=== PATIENT | female | born 1940 | race Caucasian/White ===

== ENCOUNTER 2021-09-04 08:56 | Day surgery (SDC) | payer OTHER, SELFPAY ==
[2021-09-04] MEDS: TETRACAINE 0.5% OPHTH 1 DROP EYE-RIGHT ×2 (09:10→09:15)
[2021-09-04] MEDS: KETOROLAC OPHTH 0.5% 1 DROP EYE-RIGHT ×2 (09:10→09:15)
[2021-09-04 10:19] VITALS: BP 128/65; PULSE 65; RESP 16; TEMP 36.3; O2SAT 95
[2021-09-04] MEDS: TETRACAINE 0.5% OPHTH 2 DROP EYE-RIGHT (10:25)
[2021-09-04] MEDS: BALANCED SALT IRRIG SOLN 15 ML EYE-RIGHT (10:25)
--- NOTE | 2021-09-04 10:29 | SUR.PREOP ---
0915: The eye drops brought by the patient (Ketorolac and Prednisolone) are examined and I have determined they are labeled by the patient's pharmacy for this patient as prescribed by the surgeon. The bottles are intact, recently obtained and appear to be correct.
[2021-09-04] MEDS: SODIUM CHLORIDE 0.9 % (FLUSH) 10 ML SYRINGE IVF (10:31)
[2021-09-04 10:52] VITALS: BP 129/75; PULSE 69; RESP 16; TEMP 36.6; O2SAT 97
--- NOTE | 2021-09-04 10:57 | W.ANESCHARGE ---
Anesthesia Charges Start Date/Time Anesthesia Start Date: 09/04/21 Anesthesia Start Time: 10:19 Stop Date/Time Anesthesia Stop Date: 09/04/21 Anesthesia Stop Time: 10:53 Summary Emergency: No Extremes of Age: Over 68-CPT 03779
--- NOTE | 2021-09-04 11:11 | W.ANESCHARGE ---
Anesthesia Charges Start Date/Time Anesthesia Start Date: 09/04/21 Anesthesia Start Time: 10:19 Stop Date/Time Anesthesia Stop Date: 09/04/21 Anesthesia Stop Time: 10:53 Summary Emergency: No Extremes of Age: Over 68-CPT 10675
--- NOTE | 2021-09-04 14:10 | P.PCN_ITS ---
Procedure Note Will [facility] bill your pro fee for this procedure?: Yes Procedure: SURGEON: Henny Pearce MD PREOPERATIVE DIAGNOSIS: Nuclear sclerotic cataract, right eye. POSTOPERATIVE DIAGNOSIS: Nuclear sclerotic cataract, right eye. NAME OF OPERATION: Phacoemulsification of cataract with posterior chamber intraocular lens implantation in the right eye. ANESTHESIA: Topical. ESTIMATED BLOOD LOSS: Less than 2 cc. COMPLICATIONS: None. PATHOLOGY SPECIMEN: None. INDICATIONS: See consult note for details. The risks, benefits and alternatives of the procedure were explained to the patient, who elected to proceed and signed informed consent to do so. PROCEDURE: The patient was brought to the pre-holding area where the right eye was identified as the operative eye. I placed my initials above this eye. The patient received eye drops consisting of 0.5% tetracaine, 1% tropicamide, 10% phenylephrine, and ketorolac. The patient was then brought to the operating room where the right eye was again identified as the operative eye. The eye was prepped with Betadine and draped in the usual sterile ophthalmic fashion. A #15 super-sharp blade was used to create a paracentesis site. 1% non-preserved intracameral lidocaine was injected into the anterior chamber. Viscoat was injec janette into the anterior chamber. A 2.4 mm keratome was used to create a three- plane self-sealing incision 1 mm anterior to the temporal limbus. A cystotome was used to create an anterior capsular leaflet. The Utrata forceps were used to extend this to form a continuous curvilinear capsulorrhexis. Hydrodissection was performed. The cataract was removed with phacoemulsification using the gdhtad-tyf-sychoji technique. The irrigation and aspiration tip was used to remove the remaining cortex. Healon was injected into the capsular bag. An ROSALIA ZCB00 intraocular lens of 14.5 diopters was injected into the capsular bag. The irrigation and aspiration tip was used to remove the remaining viscoelastic. Balanced salt solution on a cannula was used to hydrate the wound, and the wound was found to be watertight. The pupil was noted to be round. DISPOSITION: The patient was taken to the recovery room and discharged to home in stable condition. The patient was instructed to call me or go to the emerg ency department with any sudden change, including dramatic loss of vision, severe pain in the eye or eyebrow region, nausea, or vomiting. The patient will follow up in the clinic tomorrow morning.
--- NOTE | 2021-09-17 15:58 | SUR.PREOP ---
This nurse closing chart due to block stacker nurse is out for extended time. End time based on patients entry time into OR
== END 2021-09-04 13:19 | disposition home or self-care (01) ==
PROVIDERS: PCP Family Medicine; Visit Provider Ophthalmology
PROC: (CPT 66984; principal; 2021-09-04 09:00)
DX: H25.11 Age-related nuclear cataract, right eye (principal)
CPT/HCPCS: 66984; 142; 99100; A9270; J2250; V2632

== ENCOUNTER 2022-06-09 09:21 | Inpatient (IN) | payer OTHER, SELFPAY ==
[2022-06-09] VITALS (18 sets, daily range): BP systolic 92–131; BP diastolic 54–76; PULSE 83–105; RESP 12–20; TEMP 36.6–37.7; O2SAT 82–97; BMI 26.6
--- NOTE | 2022-06-09 09:52 | ED.NURSE ---
OTORHINOLARYNGOLOGIST swab done
--- NOTE | 2022-06-09 09:57 | CRLHL7_ITS ---
For Patients: As a result of the Century Cures Act, medical imaging exams and procedure reports are released immediately into your electronic medical record. You may view this report before your referring provider. If you have questions, please contact your health care provider. INDICATION: crackles in lungs TECHNIQUE: Chest 1 view COMPARISON: 08/18/2016 FINDINGS: The cardiac silhouette is enlarged. Tortuosity of the aorta noted. Vascular calcifications are present. Degenerative changes both shoulders. Lower lung volumes. Bibasilar parenchymal densities are now present. Mild prominence of the interstitial markings throughout. IMPRESSION: Lower lung volumes with bibasilar densities, atelectasis versus infiltrate/aspiration pneumonitis. Mild prominence of the interstitium elsewhere suggesting either mild edema or pulmonary vascular congestion. Dictated by Temo Vigil MD @ 06/09/2022 11:43:15 AM (Electronically Signed)
--- NOTE | 2022-06-09 10:06 | ED_ITS ---
HPI - Nausea/Vomiting/Diarrhea General Date Seen: 06/09/22 Chief complaint: Diarrhea Stated complaint: Flu symptoms Time Seen by Provider: 06/09/22 09:22 Source: patient, family and EMS Mode of arrival: EMS Limitations: altered mental status History of Present Illness HPI Narrative: Patient is 82-year-old female presents here from [place], by EMS, for approximately a 5 hour history of a diarrhea x4 episodes, and vomiting x4 episodes, she also has severe weakness, is not able to stand by herself, normally she is ambulatory able to walk around, she lives with her in a private residence in [place], she has a diagnosis of dementia, no other services are there. Has been is just getting over some similar symptoms of vomiting and diarrhea, no history of fevers, chills, she has a slight cough, they also noted this morning. She is brought in by ambulance, they did give her approximately 200 mL of fluid, after start an IV, gave her IV 4 mg of Zofran. Patient history is from her , she is really unable to give me any meaningful history. Associated nausea: Yes Related Data Home Medications Medication Instructions Recorded Confirmed acetaminophen 500 mg tablet 500 mg PO DAILY PRN 09/03/21 09/04/21 (Acetaminophen Extra Strength) aspirin 81 mg capsule 81 mg PO DAILY 09/03/21 06/09/22 cyanocobalamin (vitamin B-12) 1,000 mcg PO DAILY 09/03/21 09/04/21 1,000 mcg capsule furosemide 20 mg tablet 20 mg PO DAILY 09/03/21 06/09/22 metoprolol succinate 100 mg 100 mg PO DAILY 09/03/21 06/09/22 tablet,extended release 24 hr pravastatin 20 mg tablet 20 mg PO DAILY 09/03/21 06/09/22 Allergies Allergy/AdvReac Type Severity Reaction Status Date / Time No Known Drug Allergies Allergy Verified 09/04/21 09:56 Review of Systems Status of ROS: Reports: 10 or more systems reviewed and unremarkable except as noted in History and below Const: Reports: fatigue and malaise Resp: Reports: cough GI: Reports: nausea, vomiting and diarrhea Endo: Reports: fatigue PFSH PFSH Medical History Aortic stenosis, mild ?I35.0 - Nonrheumatic aortic (valve) stenosis (ICD-10) Esophageal reflux ?K21.9 - Gastro-esophageal reflux disease without esophagitis (ICD-10) Hyperlipidemia, unspecified ?E78.5 - Hyperlipidemia, unspecified (ICD-10) Hypertension ?I10 - Essential (primary) hypertension (ICD-10) Malignant neoplasm of corpus uteri, unspecified ?C54.9 - Malignant neoplasm of corpus uteri, unspecified (ICD-10) Severe dementia ?F03.90 - Unspecified dementia without behavioral disturbance (ICD-10) Surgical History History of esophagogastroduodenoscopy ?Z98.890 - Other specified postprocedural states (ICD-10) History of total abdominal hysterectomy ?Z90.710 - Acquired absence of both cervix and uterus (ICD-10) S/P dilation and curettage ?Z98.890 - Other specified postprocedural states (ICD-10) Social History Smoking Status: Unknown if ever smoked How often do you have a drink containing alcohol: never AUDIT-C Alcohol total score: 0 Non-prescribed substance use: denies use Exam Narrative: Exam Narrative: Patient is seen in room 6, she is on the gurney, she appears weak, will open her eyes, is unable to sit up by herself, she is at least to 1 person lift to set her up. She does move all her extremities, to my command however. Answers or mumbles answers. This is a significant deterioration from her normal condition according to her who is here. Pupils are equal round reactive to light she tracks normally her TMs are normal her oropharynx is dry, neck is supple full range of motion with no meningismus is noted. Chest reveals no signs respiratory distress, I did turn down her oxygen to 1 L and she sats at 96%. There is some crackles in the bases bilaterally, 1 to 2/6 systolic murmur across the left sternal border is noted. There is no S3-S4, no gallops. Abdomen shows some mild tenderness in the lower abdominal area, no evidence of peritoneal signs, bowel sounds are normal, scar from previous midline incision which her tells me was from a hysterectomy. Skin reveals no petechiae rashes, she has 1+ pitting edema of her lower extremities, proximal distal muscle groups all move normally, I would describe her weakness is symmetrical 4+ out of 5. Bilateral Const: Vital Signs, click to edit/add: Vital Signs - 24 hr 06/09/22 09:31 06/09/22 10:00 06/09/22 10:27 Temperature 98 F Pulse Rate 105 H Pulse Rate [Pulse Oximeter] 89 Respiratory Rate 18 Blood Pressure Blood Pressure [Ri ght Upper Arm] 127/66 119/61 Pulse Oximetry 95 82 L Oxygen Delivery Me thod Nasal Cannula 06/09/22 10:30 06/09/22 11:04 06/09/22 11:05 Temperature Pulse Rate 89 88 87 Pulse Rate [Pulse Oximeter] Respiratory Rate Blood Pressure Blood Pressure [Ri ght Upper Arm] Pulse Oximetry 97 93 96 Oxygen Delivery Me thod 06/09/22 11:30 06/09/22 11:31 06/09/22 12:00 Temperature Pulse Rate 98 96 90 Pulse Rate [Pulse Oximeter] Respiratory Rate Blood Pressure 130/76 Blood Pressure [Ri ght Upper Arm] Pulse Oximetry 97 95 93 Oxygen Delivery Me thod 06/09/22 12:01 06/09/22 12:02 Temperature Pulse Rate 83 90 Pulse Rate [Pulse Oximeter] Respiratory Rate Blood Pressure 131/59 L Blood Pressure [Ri ght Upper Arm] Pulse Oximetry 93 94 Oxygen Delivery Me thod Documenting provider has reviewed patient's vital signs: yes Course Course Hospital Course: Life-threatening differential diagnosis considered include stroke, coronary artery disease, pneumonia, and heart failure. Other differential diagnosis include but are not limited to electrolyte imbalances, anemia, medication reactions, and urinary tract infection Differential diagnosis includes but is not limited to viral gastroenteritis, drug food poisoning, pyloric stenosis, gastritis, pancreatitis, hepatitis, cholecystitis, appendicitis, bowel obstruction, hyperemesis, cyclic vomiting syndrome, bulimia nervosa, migraine headache, motion sickness and medication side effect. These include the life threatening complications of appendicitis, drug food poisoning and bowel obstruction. Differential diagnosis considered include but not limited to viral gastroenteritis, food poisoning, bowel obstruction, Clostridium difficile, Campylobacter, Shigella, rotavirus, medication side effects, dysentery, diverticulitis, Crohn's disease and colitis I discussed with the , she is DNR DNI, but she would be and he would be agreeable to IV fluids, and a workup for this. I think this would be reasonable she has no history of falls or trauma, no history of recent antibiotic use, and there is there a history of her having similar symptoms. Reevaluation(s) Reevaluation #1: Patient's lactate came back high at 2.4, we will give her 30 mL/kilogram bolus of normal saline, she is afebrile, not tachycardic, and not hypotensive, I believe a lot of the issue is deals with her vomiting and her diarrhea, there is a questionable infiltrate in her right lower lobe on x-ray, await for radiologic over-read. We will go ahead and start her on antibiotics at this point. Reevaluation #2: Patient's cath urine showed that she is nitrate positive with bacteria, I think this is likely a true positive than. Her chest x-ray did show the infiltrates as I discussed. I will start her and did start her on Rocephin, due to the dizziness to the ER, we needed to get the bed, she was too weak to go home, we will admit her to the hospital I discussed the case with Dr. Teresa. Time: 12:39 Vital Signs Vital signs: Initial Vital Signs Temperature 98 F 06/09/22 09:31 Temperature Source Temporal Artery Scan 06/09/22 09:31 Pulse Rate 89 06/09/22 09:31 Respiratory Rate 18 06/09/22 09:31 Blood Pressure 127/66 06/09/22 09:31 Blood Pressure Mean 86 06/09/22 09:31 Blood Pressure Position Supine 06/09/22 09:31 Pulse Oximetry 95 06/09/22 09:31 Oxygen Delivery Method Nasal Cannula 06/09/22 09:31 Vital Signs Temperature 98 F 06/09/22 09:31 Pulse Rate 89 06/09/22 09:31 Respiratory Rate 18 06/09/22 09:31 Blood Pressure 127/66 06/09/22 09:31 Pulse Oximetry 95 06/09/22 09:31 Oxygen Delivery Method Nasal Cannula 06/09/22 09:31 Temperature 98 F 06/09/22 09:31 Pulse Rate 90 06/09/22 12:02 Respiratory Rate 18 06/09/22 09:31 Blood Pressure 131/59 L 06/09/22 12:01 Pulse Oximetry 94 06/09/22 12:02 Oxygen Delivery Method Nasal Cannula 06/09/22 09:31 MDM - Nausea/Vomiting/Diarrhea MDM Narrative Medical decision making narrative: Life-threatening differential diagnosis considered include stroke, coronary artery disease, pneumonia, and heart failure. Other differential diagnosis include but are not limited to electrolyte imbalances, anemia, medication reactions, and urinary tract infection Differential diagnosis includes but is not limited to viral gastroenteritis, drug food poisoning, pyloric stenosis, gastritis, pancreatitis, hepatitis, cholecystitis, appendicitis, bowel obstruction, hyperemesis, cyclic vomiting syndrome, bulimia nervosa, migraine headache, motion sickness and medication side effect. These include the life threatening complications of appendicitis, drug food poisoning and bowel obstruction. Differential diagnosis considered include but not limited to viral gastroenteritis, food poisoning, bowel obstruction, Clostridium difficile, Campylobacter, Shigella, rotavirus, medication side effects, dysentery, d iverticulitis, Crohn's disease and colitis Medical Records Attestation: I reviewed the patient's medical records. Lab Data Attestation: I reviewed the patient's lab results. Labs: Lab Results 06/09/22 06/09/22 06/09/22 Range/Units 10:07 10:50 11:00 WBC 7.38 (4.50-11.00) K/uL RBC 4.83 (4.00-5.20) m/uL Hgb 14.6 (12.0-16.0) gm/dL Hct 43.8 (33.0-51.0) % MCV 91 (80-100) fL MCH 30 (26-34) pg MCHC 33 (32-36) gm/dL RDW Coeff of Russ 13.3 (11.5-15.5) % Plt Count 171 (140-440) K/uL Neut % (Auto) 93.2 H (42.0-72.0) % Lymph % (Auto) 1.8 L (20-44) % [place] % (Auto) 4.7 (0.0-11.0) % Eos % (Auto) 0.1 (0.0-7.0) % Baso % (Auto) 0.1 (0.0-3.0) % Neut # (Auto) 6.90 (1.7-7.0) K/uL Lymph # (Auto) 0.10 L (0.90-2.90) K/uL [place] # (Auto) 0.30 (0.00-0.90) K/UL Eos # (Auto) 0.01 (0.00-0.50) K/uL Baso # (Auto) 0.01 (0.00-0.30) K/uL INR 0.99 (0.91-1.10) APTT 23 (23-33) Seconds Sodium 142 (135-149) mmol/L Potassium 3.6 (3.6-5.1) mmol/L Chloride 110 (96-114) mmol/L Carbon Dioxide 26 (20-32) mmol/L BUN 17 (7-30) mg/dL Creatinine 1.0 (0.5-1.5) mg/dL Estimated Creat Clear 37.68 Estimated GFR 56 ml/min Glucose 141 H (60-115) mg/dL Lactate 2.4 H (0.5-1.9) mmol/L Calcium 8.6 (8.4-10.6) mg/dL Total Bilirubin 1.0 (0.1-1.5) mg/dL Direct Bilirubin 0.3 (0.0-0.5) mg/dL AST 24 (12-35) U/L ALT 18 (4-35) U/L Alkaline Phosphatase 84 (40-150) U/L Troponin I < 0.01 L (0.01-0.04) ng/mL NT-Pro-B Natriuret Pep 777 pg/mL Total Protein 6.5 (6.0-8.3) g/dL Albumin 3.7 (3.3-5.0) g/dL Procalcitonin 1.05 H (<0.50) ng/mL Urine Color Yellow (Yellow) Urine Appearance Cloudy A (Clear) Urine pH 6.0 (5.0-8.5) Ur Specific [place] 1.025 (1.000-1.030) Urine Protein Trace A (Negative) Urine Glucose (UA) Negative (Negative) Urine Ketones Trace A (Negative) Urine Blood Trace-intact A (Negative) Urine Nitrite Positive A (Negative) Urine Bilirubin Negative (Negative) Urine Urobilinogen 0.2 (0.2-1.0) Ur Leukocyte Esterase Negative (Negative) Urine RBC 0-2 (0-2) Urine WBC 0-2 (0-5) Ur Squamous Epith Cells Few (None-Few) Urine Bacteria Many A (None) SARS-CoV-2 (PCR) Negative SARS-CoV-2 (Negative) Influenza Type A (PCR) Negative PCR FLU A (Negative) Influenza Type B (PCR) Negative PCR FLU B (Negative) RSV (PCR) Negative PCR RSV (Negative) Imaging Data Chest x-ray: Attestation: I have reviewed the pertinent imaging results. My impression: I reviewed the chest x-ray which showed possible right lower lobe infiltrate, Radiologist's impression: [facility] Patient ID:?[id number] Site Patient ID:?[id number]. Site :?[id number] Study:?XRay Chest PORTABLE-06/09/2022 11:06:54 AM Ordering Physician:Mena Calderón Final Report: INDICATION: crackles in lungs TECHNIQUE: Chest 1 view COMPARISON: 08/18/2016 FINDINGS: The cardiac silhouette is enlarged. Tortuosity of the aorta noted. Vascular calcifications are present. Degenerative changes both shoulders. Lower lung volumes. Bibasilar parenchymal densities are now present. Mild prominence of the interstitial markings throughout. IMPRESSION: Lower lung volumes with bibasilar densities, atelectasis versus infiltrate/aspiration pneumonitis. Mild prominence of the interstitium elsewhere suggesting either mild edema or pulmonary vascular congestion. Dictated by Temo Vigil MD @ 06/09/2022 11:43:15 AM (Electronic Signature) Discharge Plan Discharge Clinical Impression: Diarrhea, Weakness, Acute UTI, Pneumonia, Vomiting Patient Disposition: Admitted As Inpatient
[2022-06-09 10:52] LABS: PCR FLU A Negative PCR FLU A (Negative); PCR FLU B Negative PCR FLU B (Negative); PCR RSV Negative PCR RSV (Negative)
[2022-06-09 11:01] LABS: Lactate* 2.4 mmol/L (0.5-1.9)
[2022-06-09 11:04] LABS: Basophils Absolute Auto 0.01 K/uL (0.00-0.30); Basophils Percent Auto 0.1 % (0.0-3.0); Eosinophils Absolute Auto 0.01 K/uL (0.00-0.50); Eosinophils Percent Auto 0.1 % (0.0-7.0); Hematocrit 43.8 % (33.0-51.0); Hemoglobin* 14.6 gm/dL (12.0-16.0); Immature Granulocytes Abs Auto 0.01 K/uL (0.00-0.30); Immature Granulocytes Pct Auto 0.1 %; Lymphocytes Percent Auto 1.8 % (20-44); Mean Corpuscular HGB Conc 33 gm/dL (32-36); Mean Corpuscular Hemoglobin 30 pg (26-34); Mean Corpuscular Volume 91 fL (80-100); Monocytes Percent Auto 4.7 % (0.0-11.0); Neutrophils Percent Auto 93.2 % (42.0-72.0); Platelet Count* 171 K/uL (140-440); RDW Coefficient of Variation % 13.3 % (11.5-15.5); Red Blood Count 4.83 m/uL (4.00-5.20); White Blood Count* 7.38 K/uL (4.50-11.00)
[2022-06-09 11:06] LABS: SARS PCR* Negative SARS-CoV-2 (Negative)
[2022-06-09 11:07] LABS: Slide Review Reflex No
[2022-06-09] MEDS: 0.9 % SODIUM CHLORIDE 1000 ml 1,000 ML IV ×2 (11:11→11:43)
[2022-06-09 11:17] LABS: Albumin* 3.7 g/dL (3.3-5.0); Chloride* 110 mmol/L (96-114); Sodium* 142 mmol/L (135-149)
[2022-06-09 11:18] LABS: Potassium* 3.6 mmol/L (3.6-5.1)
[2022-06-09 11:19] LABS: INR 0.99 (0.91-1.10); Prothrombin Time 13.7 Seconds
[2022-06-09 11:20] LABS: Alkaline Phosphatase* 84 U/L (40-150); Aspartate Amino Transferase* 24 U/L (12-35); Bilirubin Direct* 0.3 mg/dL (0.0-0.5); Blood Urea Nitrogen* 17 mg/dL (7-30); Carbon Dioxide* 26 mmol/L (20-32); Est. Creatinine Clearance* 37.68; Estimated Glomerular Filt Rate 56 ml/min; Glucose* 141 mg/dL (60-115); Partial Thromboplastin Time* 23 Seconds (23-33); Total Protein* 6.5 g/dL (6.0-8.3)
[2022-06-09 11:21] LABS: Alanine Aminotransferase* 18 U/L (4-35); Calcium* 8.6 mg/dL (8.4-10.6)
--- NOTE | 2022-06-09 11:30 | ED.NURSE ---
pt straight cathed for 250 cc dark megan urine, strong smelling. urine sent to lab
[2022-06-09 11:34] LABS: NT Pro B Type NatriureticPept* 777 pg/mL
[2022-06-09 11:37] LABS: Procalcitonin* 1.05 ng/mL (<0.50)
[2022-06-09 11:40] LABS: Appearance Urine Cloudy (Clear); Bilirubin Urine Negative (Negative); Blood Urine Trace-intact (Negative); Color Urine Yellow (Yellow); Glucose Urine Negative (Negative); Ketones Urine Trace (Negative); Leukocyte Esterase Urine Negative (Negative); Nitrite Urine Positive (Negative); Protein Urine Trace (Negative); Specific Gravity Urine 1.025 (1.000-1.030); Urobilinogen Urine 0.2 (0.2-1.0)
[2022-06-09] MEDS: cefTRIAXone 2 GM in 0.9 % SODIUM CHLORIDE Mini-bag 100 ML IVPB (11:43)
[2022-06-09 11:54] LABS: Bacteria Urine Many; RBC Urine 0-2 (0-2); Squamous Epithelial Cell Urine Few (None-Few); WBC Urine 0-2 (0-5)
[2022-06-09 12:04] LABS: Troponin I* < 0.01 ng/mL (0.01-0.04)
--- NOTE | 2022-06-09 13:47 | P.IMHP_ITS ---
Hospitalist- H&P: HPI History of Present Illness Time Seen by Provider: 13:25 Date Seen: 06/09/22 Chief complaint: Flu symptoms Narrative: Raphael Cain is a 82 year old female with severe dementia who lives at home with her who brought her in for vomiting and diarrhea. At baseline, her gives her directions and she usually follows them. She does not use a walker at home. About a week ago she started coughing. She did not complain of SOB or appear dyspneic and has not had any fever, chills or worsening confusion. Mid week, her got a viral gastroenteritis, which he is starting to get over now. In the middle of the night, she woke up vomiting and with diarrhea. He laid her on her side so that she would not aspirate. Review of Systems Status of ROS: Reports: unobtainable due to medical condition (Dementia) and unobtainable due to mental status [facility] Medical History (Updated 06/09/22 @ 14:38 by Loren Teresa MD) Aortic stenosis, mild ?I35.0 - Nonrheumatic aortic (valve) stenosis (ICD-10) DNR (do not resuscitate) ?Z66 - Do not resuscitate (ICD-10) Esophageal reflux ?K21.9 - Gastro-esophageal reflux disease without esophagitis (ICD-10) Healthcare maintenance ?Z00.00 - Encounter for general adult medical examination without abnormal findings (ICD-10) Hyperlipidemia, unspecified ?E78.5 - Hyperlipidemia, unspecified (ICD-10) Hypertension ?I10 - Essential (primary) hypertension (ICD-10) Malignant neoplasm of corpus uteri, unspecified ?C54.9 - Malignant neoplasm of corpus uteri, unspecified (ICD-10) Osteoarthritis ?M19.90 - Unspecified osteoarthritis, unspecified site (ICD-10) Plantar fascial fibromatosis ?M72.2 - Plantar fascial fibromatosis (ICD-10) Severe dementia ?F03.90 - Unspecified dementia without behavioral disturbance (ICD-10) Surgical History (Updated 06/09/22 @ 13:24 by Loren Teresa MD) History of esophagogastroduodenoscopy (11/30/12) ?Z98.890 - Other specified postprocedural states (ICD-10) History of total abdominal hysterectomy (03/09/05) ?Z90.710 - Acquired absence of both cervix and uterus (ICD-10) S/P dilation and curettage (10/19/86) ?Z98.890 - Other specified postprocedural states (ICD-10) Family History (Updated 06/09/22 @ 13:22 by Loren Teresa MD) Sister Renal cancer Pulmonary fibrosis Daughter Breast cancer Father Coronary artery disease Mother High blood pressure Social History (Updated 06/09/22 @ 14:30 by Loren Teresa MD) Narrative: Lives with . He wants her to be DNR/DNI. He notes a discussion he had with Dr. Saravia back in 2019 as the reason for his decision on this. Highest level of school completed/degree received: high school graduate Smoking Status: Never smoker Do you use any of these nicotine containing products: None Second hand tobacco smoke exposure: No (SPOUSE QUIT) How often do you have a drink containing alcohol: never How often do you have six or more drinks on one occasion: Never AUDIT-C Alcohol total score: 0 Non-prescribed substance use: denies use Meds Home Medications and Allergies Home Medications Medication Instructions Recorded Confirmed Type acetaminophen 500 mg tablet 500 mg PO DAILY PRN 09/03/21 06/09/22 History (Acetaminophen Extra Strength) aspirin 81 mg capsule 81 mg PO DAILY 09/03/21 06/09/22 History furosemide 20 mg tablet 20 mg PO DAILY 09/03/21 06/09/22 History metoprolol succinate 100 mg 100 mg PO DAILY 09/03/21 06/09/22 History tablet,extended release 24 hr pravastatin 20 mg tablet 20 mg PO DAILY 09/03/21 06/09/22 History cyanocobalamin (vitamin B-12) 1,000 mcg IM Q4W 06/09/22 06/09/22 History 1,000 mcg/mL injection solution Allergies Allergy/AdvReac Type Severity Reaction Status Date / Time No Known Drug Allergies Allergy Verified 09/04/21 09:56 Exam Narrative: Exam Narrative: General: Sleeping, refused to open her eyes. Able to answer a few simple questions with short answers. Oriented to self. HEENT: Normocephalic atraumatic, pupils equally round and reactive to light and accommodation. Oropharynx clear. Mucous membranes are dry. No cervical lymphadenopathy, thyromegaly or carotid bruits. No JVD. Cardiovascular: Regular rate and rhythm. No murmurs, gallops, or rubs. Chest: No increased work of breathing. Clear to auscultation bilaterally. No crackles or wheezes. Abdomen: Bowel sounds present. Soft, nondistended, nontender. No hepatosplenomegaly or masses. Extremities: No edema, no cyanosis or clubbing. Skin: No jaundice, no pallor, no rashes. Neuro: Moves all extremities, no focal weakness. Const: Vital Signs, click to edit/add: Vital Signs - 24 hr 06/09/22 09:31 06/09/22 10:00 06/09/22 10:27 Temperature 98 F Pulse Rate 105 H Pulse Rate [Pulse Oximeter] 89 Respiratory Rate 18 Blood Pressure Blood Pressure [Ri ght Arm] Blood Pressure [Ri ght Upper Arm] 127/66 119/61 Pulse Oximetry 95 82 L Oxygen Delivery Me thod Nasal Cannula Oxygen Flow Rate 06/09/22 10:30 06/09/22 11:04 06/09/22 11:05 Temperature Pulse Rate 89 88 87 Pulse Rate [Pulse Oximeter] Respiratory Rate Blood Pressure Blood Pressure [Ri ght Arm] Blood Pressure [Ri ght Upper Arm] Pulse Oximetry 97 93 96 Oxygen Delivery Me thod Oxygen Flow Rate 06/09/22 11:30 06/09/22 11:31 06/09/22 12:00 Temperature Pulse Rate 98 96 90 Pulse Rate [Pulse Oximeter] Respiratory Rate Blood Pressure 130/76 Blood Pressure [Ri ght Arm] Blood Pressure [Ri ght Upper Arm] Pulse Oximetry 97 95 93 Oxygen Delivery Me thod Oxygen Flow Rate 06/09/22 12:01 06/09/22 12:02 06/09/22 12:49 Temperature Pulse Rate 83 90 Pulse Rate [Pulse Oximeter] Respiratory Rate 20 Blood Pressure 131/59 L Blood Pressure [Ri ght Arm] Blood Pressure [Ri ght Upper Arm] Pulse Oximetry 93 94 93 Oxygen Delivery Me thod Nasal Cannula Oxygen Flow Rate 1 06/09/22 12:49 Temperature 98.4 F Pulse Rate Pulse Rate [Pulse Oximeter] Respiratory Rate 20 Blood Pressure Blood Pressure [Ri ght Arm] 121/69 Blood Pressure [Ri ght Upper Arm] Pulse Oximetry 92 Oxygen Delivery Me thod Nasal Cannula Oxygen Flow Rate Documenting provider has reviewed patient's vital signs: yes Hospitalist - H&P: Result Labs Labs: Short CBC 06/09/22 Range/Units 10:50 WBC 7.38 (4.50-11.00) K/uL Hgb 14.6 (12.0-16.0) gm/dL Hct 43.8 (33.0-51.0) % Plt Count 171 (140-440) K/uL BMP 06/09/22 10:50 Sodium 142 Potassium 3.6 Chloride 110 Carbon Dioxide 26 BUN 17 Creatinine 1.0 Glucose 141 H Calcium 8.6 Cardiac Enzymes 06/09/22 Range/Units 10:50 Troponin I < 0.01 L (0.01-0.04) ng/mL Liver Function 06/09/22 Range/Units 10:50 Total Bilirubin 1.0 (0.1-1.5) mg/dL Direct Bilirubin 0.3 (0.0-0.5) mg/dL AST 24 (12-35) U/L ALT 18 (4-35) U/L Alkaline Phosphatase 84 (40-150) U/L Albumin 3.7 (3.3-5.0) g/dL Urine 06/09/22 Range/Units 11:00 Urine Color Yellow (Yellow) Urine Appearance Cloudy A (Clear) Urine pH 6.0 (5.0-8.5) Ur Specific [place] 1.025 (1.000-1.030) Urine Protein Trace A (Negative) Urine Glucose (UA) Negative (Negative) Ordering Physician: Stephane Mckeon M.D. Date of Service: 06/09/22 Procedure(s): XR chest 1V portable Accession Number(s): [id number] cc: Stephane Mckeon M.D.; Nga Jade D.O.~ For Patients:? As a result of the 21st Century Cures Act, medical imaging exams and procedure reports are released immediately into your electronic medical record.? You may view this report before your referring provider.? If you have questions, please contact your health care provider. INDICATION: crackles in lungs TECHNIQUE: Chest 1 view COMPARISON: 08/18/2016 FINDINGS: The cardiac silhouette is enlarged. Tortuosity of the aorta noted. Vascular calcifications are present. Degenerative changes both shoulders. Lower lung volumes. Bibasilar parenchymal densities are now present. Mild prominence of the interstitial markings throughout. IMPRESSION: Lower lung volumes with bibasilar densities, atelectasis versus infiltrate/aspiration pneumonitis. Mild prominence of the interstitium elsewhere suggesting either mild edema or pulmonary vascular congestion. Dictated by Temo Vigil MD @ 06/09/2022 11:43:15 AM (Electronically Signed) Assessment and Plan Assessment and plan (1) Weakness: Status: Acute (2) Pneumonia: Status: Acute (3) Acute UTI: Status: Acute (4) Gastroenteritis: Status: Acute (5) Severe dementia: Problem comment: SLUMS 06 November 2019 Status: Chronic Plan This is an 82-year-old female with severe dementia who has a right lower lobe pneumonia and viral gastroenteritis. She has had a cough for a week so it is possible that pneumonia has been present prior to gastroenteritis, but it is equally possible that this is an aspiration pneumonia. She got Rocephin in the emergency department which I will continue and add azithromycin. Additionally she has a urine that is possibly consistent with a UTI. Rocephin should take care of this as well. She likely also has a viral gastroenteritis which her had recently. Admit for treatment of all of these. She looks dehydrated for which I will give her IV fluids, trying to get the lactate down under 2. According to her , Ena has had problems with lower extremity edema for a while, and I suspect she likely has underlying chronic heart failure, so I will be cautious with the fluids.
[2022-06-09 14:07] LABS: Lactate* 2.2 mmol/L (0.5-1.9)
[2022-06-09] MEDS: AZITHROMYCIN 250 MG TABLET PO (14:31)
[2022-06-09] MEDS: 0.9 % SODIUM CHLORIDE 250 ml 250 ML IV (14:32)
--- NOTE | 2022-06-09 15:04 | PC.NURSE ---
Pt admitted via stretcher from ED to room 245 @ 1234pm for positive UTI and PNEUMONIA. Bedscale weight obtained. Initial PE, belonging list, PHI and admission EMR protocol completed with assistance of patient's spouse AL d/to pt's dementia and fatigue level. She is oriented to self. Bed alarm engaged, call light w/in reach. Eval by Dr. Teresa who explained CXR results to pt's spouse who is pt's DCG. Repeat Lactate level trending downward at 2.2 @ 2 pm draw. Pt received IV bolus 250 ml over one hour and oral Zithromax. Plan another 500cc bolus and repeat Lactate this evening at 4pm. Report provided to Jenni LIN for evening shift.
[2022-06-09] MEDS: 0.9 % SODIUM CHLORIDE 500 ML 500 ML IV (15:31)
[2022-06-09 16:23] LABS: Lactate* 2.7 mmol/L (0.5-1.9)
[2022-06-09] MEDS: LACTATED RINGERS 1000 ML 500 ML IV (16:58)
--- NOTE | 2022-06-09 18:01 | PC.NURSE ---
Shift Summary 15-19: Patient pleasant and cooperative, has been resting in bed, turned and repositioned q2h. Has been incontinent x1, pericares and brief managed by staff. Given NS 500cc bolus and now running 1L LR bolus. Clear fluid diet, patient has poor appetite and taking sips of sprite and water. No loose BM, nausea or vomiting noted.
[2022-06-09] MEDS: ENOXAPARIN 40 MG/0.4 ML INJ SUBCUT (21:02)
[2022-06-09] MEDS: SODIUM CHLORIDE 0.9 % (FLUSH) 10 ML SYRINGE 5 ML IVF (21:03)
[2022-06-10] VITALS (9 sets, daily range): BP systolic 95–125; BP diastolic 46–61; PULSE 72–90; RESP 12–18; TEMP 36.8–37.1; O2SAT 94–98
--- NOTE | 2022-06-10 05:01 | PC.NURSE ---
Patient is alert to self, vss with the exception of soft BP (MD aware). MD changed diet to regular diet and requested encouraging patient to eat and drink rather than give another fluid bolus. Patient drank one whole carton of ensure around 2300 last night. She is incontinent of urine, adult brief changed once throughout the night and there was very little urine. Patient was slightly febrile at 2300 vs but at 0300 vs was afebrile. Patient is on 2L O2 via nc and is on continuous pulse ox, O2 maintained in high 90's. Lung sounds diminished with some expiratory wheezes, bs active. No episodes of N/V or D during the shift. Patient denies pain.
[2022-06-10 06:38] LABS: Lactate* 1.2 mmol/L (0.5-1.9)
[2022-06-10] MEDS: SODIUM CHLORIDE 0.9 % (FLUSH) 10 ML SYRINGE 5 ML IVF ×2 (10:27→22:14)
--- NOTE | 2022-06-10 13:36 | PM.IMPN1 ---
Progress Note: A&P Assessment and plan (1) Pneumonia: Problem details: Procalcitonin yesterday was 1.05. Continue IV Rocephin and azithromycin. She is overall improving and is not hypoxic. Status: Acute (2) Gastroenteritis: Problem details: Resolving. No longer dehydrated. Has not had much oral intake yet. Keep overnight yet and encourage po intake. Status: Acute (3) Severe dementia: Problem details: SLUMS 06 November 2019 Status: Chronic Assessment and Plan: This appears stable. (4) Acute UTI: Problem details: G- idalmis. UC pending. Continue rocephin. Status: Acute Subjective Time Seen by Provider: 09:48 Date Seen: 06/10/22 Interval history: Mike's daughter, Vinita, was in the room with her today. Mike is doing much better today. She is awake, alert and sitting in the chair. Her daughter says that Mike only had 2 bites of breakfast and does not seem to have an appetite yet. She is not on oxygen. Her daughter and I talked about pneumonia, viral gastroenteritis, baseline physical status, dehydration, and nutrition. Just afternoon, I saw Mike walking with a walker and standby assistance of a nurse. The patient's and the patient's daughter were also there. She was ambulating very well. Exam Narrative: Exam Narrative: General: No acute distress. Awake, alert, oriented to self, also knew her daughter. No pallor. No jaundice. Oropharynx: Clear. Mucous membranes moist. Cardiovascular: Regular rate and rhythm. No murmurs, gallops, or rubs. Respiratory: Fine bibasilar crackles. Abdomen: Bowel sounds present. Soft, nondistended, nontender. Extremities: Trace bilateral pretibial edema. Const: Vital Signs, click to edit/add: Vital Signs - 24 hr 06/09/22 14:48 06/09/22 14:51 06/09/22 16:47 Temperature 99.2 F Pulse Rate [Left A pical] 91 Respiratory Rate 20 20 Blood Pressure [Le ft Arm] 94/70 Blood Pressure [Ri ght Arm] 100/62 Pulse Oximetry 94 94 Oxygen Delivery Me thod Nasal Cannula Nasal Cannula Oxygen Flow Rate 1 1 06/09/22 19:35 06/09/22 23:15 06/09/22 23:15 Temperature 98.6 F Pulse Rate [Left A pical] 95 95 Respiratory Rate 12 12 Blood Pressure [Le ft Arm] 92/63 Blood Pressure [Ri ght Arm] Pulse Oximetry 96 Oxygen Delivery Me thod Nasal Cannula Nasal Cannula Oxygen Flow Rate 2 2 06/09/22 23:15 06/10/22 03:00 06/10/22 04:58 Temperature 99.8 F H 98.4 F Pulse Rate [Left A pical] 95 82 82 Respiratory Rate 12 12 Blood Pressure [Le ft Arm] 107/54 L Blood Pressure [Ri ght Arm] 101/61 Pulse Oximetry 96 97 Oxygen Delivery Me thod Nasal Cannula Nasal Cannula Oxygen Flow Rate 2 2 06/10/22 08:50 06/10/22 08:50 06/10/22 13:33 Temperature 98.3 F 98.5 F Pulse Rate [Left A pical] 72 77 Respiratory Rate 18 16 Blood Pressure [Le ft Arm] 95/58 L Blood Pressure [Ri ght Arm] 100/49 L Pulse Oximetry 98 98 94 Oxygen Delivery Me thod Nasal Cannula Room Air Room Air Oxygen Flow Rate 2 Labs Labs: Laboratory Results - last 24 hr 06/09/22 06/09/22 06/10/22 14:02 16:20 05:43 Lactate 2.2 H 2.7 H 1.2
--- NOTE | 2022-06-10 13:54 | PC.SOCIAL ---
Met with pt.'s spouse and daughter to discuss discharge plans. Pt. has dementia, lives in a multi-level home and has been cared for at home by spouse. As long as pt. can ambulate pt.'s spouse wants to continue to care for her. Pt. needs to go up 6 stairs and then can stay on the main level of the home. Per PT pt. is moving well and should be able to return home with spouse. Per spouse and daughter they feel they are dong well at home. Resources on area home care manager rn care and home care were given if needed in the future.
[2022-06-10] MEDS: AZITHROMYCIN 250 MG TABLET PO (14:13)
[2022-06-10] MEDS: PRAVASTATIN SODIUM 20 MG TABLET PO (22:13)
[2022-06-10] MEDS: ENOXAPARIN 40 MG/0.4 ML INJ SUBCUT (22:14)
[2022-06-10] MEDS: cefTRIAXone 2 GM in 0.9 % SODIUM CHLORIDE Mini-bag 100 ML IVPB (22:50)
--- NOTE | 2022-06-10 23:28 | PC.NURSE ---
End of shift- Very pleasant and cooperative pleasantly confused patient. VSS and pt is afebrile. SPO2 maintained >90% on RA. She denied any pain. Crackles auscultated in posterior bases, LS otherwise CTA. She denied nausea and ate 25% of a regular diet. Appetite was poor. She was up to BR and chair with SBA and walker and tolerated it well. was at bedside this afternoon and appears loving and supportive. Report to RILEY Hathaway.
[2022-06-11 03:08] VITALS: BP 144/68; PULSE 90; RESP 16; TEMP 37; O2SAT 949
--- NOTE | 2022-06-11 04:03 | PC.NURSE ---
Pt rested well this night. A1 with walker to BR. Voiding and BM this night. No Pain reported. Pt confused but easily redirected.
[2022-06-11 07:30] VITALS: BP 115/72; PULSE 80; RESP 18; TEMP 36.8; O2SAT 95
[2022-06-11] MEDS: SODIUM CHLORIDE 0.9 % (FLUSH) 10 ML SYRINGE 5 ML IVF (08:28)
--- NOTE | 2022-06-11 12:31 | PM.DS1 ---
DS: Providers Provider Date Seen: 06/11/22 Date of admission: 06/09/22 13:47 Primary care physician: Nga Jade DO Admitting Clinician: Loren Teresa MD Consults: OT, PT, SW Attending Physician on discharge: Agatha Morgan MD Date of Discharge: 06/11/22 DS: Diagnosis Discharge Diagnosis (1) Pneumonia: Status: Acute Problem details: - on admission imaging (06/09); treated with azithromycin and ceftriaxone. Remained stable on room air throughout stay (2) Gastroenteritis: Status: Acute Problem details: - resolved during hospital stay, tolerating p.o. intake on discharge (3) Severe dementia: Status: Chronic Problem details: - SLUMS 06 November 2019 (4) Acute UTI: Status: Acute Problem details: - pansensitive E coli (06/09); treated with ceftriaxone during stay DS: Summary Hospital Course Hospital Course: Patient is a very pleasant 82-year-old female with a history of dementia, who presented to the hospital with illness in the setting of recent viral gastroenteritis. Admission chest x-ray exhibited pneumonia, and urine culture + for pansensitive E coli. Patient treated with ceftriaxone and azithromycin, tolerated these treatments well. Her gastroenteritis resolved and she was able to tolerate p.o. intake upon discharge. She was seen by therapies during stay; no increased services recommended. Patient discharged home with daughter and on 06/11; will be treated with Levaquin and recommend close PCP follow-up. Time Spent with Patient Time attestation: Total time spent providing and/or coordinating discharge services: Time spent: Greater than 30 minutes Specific discharge activities: Medication reconciliation, care coordination Exam Narrative: Exam Narrative: GEN: Alert and pleasant, cognitive impairment is evident HEENT: EOMIs bilaterally, no scleral icterus CV: RRR, soft systolic murmur heard best at left sternal border without radiation or concerning features R: LCTA bilaterally without concerning wheezing, air movement adequate Skin: No concerning skin lesions or rashes on exposed skin Psych: Appropriate for baseline conditions Const: Vital Signs, click to edit/add: Vital Signs - 24 hr 06/10/22 13:33 06/10/22 16:00 06/10/22 15:00 Temperature 98.5 F 98.7 F Pulse Rate [Left A pical] 77 75 Respiratory Rate 16 18 18 Blood Pressure [Le ft Arm] 95/58 L Blood Pressure [Ri ght Arm] 107/50 L Pulse Oximetry 94 94 94 Oxygen Delivery Me thod Room Air Room Air Room Air Oxygen Flow Rate 0 06/10/22 15:00 06/10/22 19:00 06/10/22 23:01 Temperature 98.8 F 98.4 F Pulse Rate [Left A pical] 75 88 90 Respiratory Rate 18 16 16 Blood Pressure [Le ft Arm] Blood Pressure [Ri ght Arm] 123/46 L 125/57 L Pulse Oximetry 94 94 Oxygen Delivery Me thod Room Air Room Air Oxygen Flow Rate 06/10/22 23:07 06/10/22 23:07 06/11/22 03:08 Temperature 98.6 F Pulse Rate [Left A pical] 90 90 Respiratory Rate 16 16 Blood Pressure [Le ft Arm] Blood Pressure [Ri ght Arm] 144/68 H Pulse Oximetry 94 949 H Oxygen Delivery Me thod Room Air Room Air Oxygen Flow Rate 0 06/11/22 07:30 06/11/22 07:30 Temperature 98.2 F Pulse Rate [Left A pical] 80 Respiratory Rate 18 Blood Pressure [Le ft Arm] Blood Pressure [Ri ght Arm] 115/72 Pulse Oximetry 95 95 Oxygen Delivery Me thod Room Air Room Air Oxygen Flow Rate DS: Data Data Completed and Pending Labs on day of discharge: Preliminary micro results at discharge 06/09/22 10:50 Blood Culture - Preliminary Blood NO GROWTH AFTER 48 HOURS 06/09/22 10:30 Blood Culture - Preliminary Blood NO GROWTH AFTER 48 HOURS Discharge Plan Discharge Disposition: Home, Self-Care Date of Admission: 06/09/22 13:47 Attending Provider on Discharge: Agatha Morgan Primary Care Provider: Nga Jade Condition: Improved Anticipated Discharge Date/Time: 06/11/22 13:00 Discharge Medications: New levofloxacin 250 mg tablet 250 mg PO Q24H Qty: 5 0RF Continued acetaminophen [Acetaminophen Extra Strength] 500 mg tablet 500 mg PO DAILY PRN aspirin 81 mg capsule 81 mg PO DAILY furosemide 20 mg tablet 20 mg PO DAILY metoprolol succinate 100 mg tablet extended release 24 hr 100 mg PO DAILY pravastatin 20 mg tablet 20 mg PO DAILY cyanocobalamin (vitamin B-12) 1,000 mcg/mL solution 1,000 mcg IM Q4W Discharge Orders: Discharge Order (Routine); Ordered 06/11/22 Ordered By: Agatha Morgan Patient Education: Levofloxacin (By mouth), Bacterial Pneumonia (DC), Urinary Tract Infection in Older Adults (DC) Additional Instructions: Antibiotics at pharmacy (this will cover both UTI and mild pneumonia), take for 5 more days. No other changes made to home medications. Schedule an appointment with Dr. Jade to be seen in 7-10 days for hospital follow-up. Activity Level: No strenuous activity Discharge Diet: Regular Follow Up Appointments: Nga Jade DO [Primary Care Provider] - (7-10 days for hospital d/c followup) Forms: [employer] Info Instructions
== END 2022-06-11 12:15 | disposition home or self-care (01) | DRG 391 ==
LOC: ED 11:16 → MEDSURG 12:28
PROVIDERS: Family Medicine; Admitting Provider Family Medicine; Emergency Provider Family Medicine; PCP Family Medicine; Visit Provider Family Medicine
DX: A08.4 Viral intestinal infection, unspecified (principal); J18.9 Pneumonia, unspecified organism; N39.0 Urinary tract infection, site not specified; B96.20 Unspecified Escherichia coli [E. coli] as the cause of diseases classified elsewhere; F03.C0 Unspecified dementia, severe, without behavioral disturbance, psychotic disturbance, mood disturbance, and anxiety; E86.0 Dehydration; I35.0 Nonrheumatic aortic (valve) stenosis; E78.5 Hyperlipidemia, unspecified; I10 Essential (primary) hypertension; R53.1 Weakness; R60.0 Localized edema
CPT/HCPCS: 36415; 51702; 71045; 80048; 80076; 81001; 83605; 83880; 84145; 84484; 85025; 85610; 85730; 87040; 87086; 87186; 87502; 87634; 87635; 97116; 97161; 97165; 97530; 97535; 99284; A9270; J0696; J1650; J7030; J7050; J7120

== ENCOUNTER 2022-09-22 09:52 | Emergency (ER) | payer OTHER, SELFPAY ==
[2022-09-22 10:00] VITALS: BP 131/78; PULSE 68; RESP 20; TEMP 36.1; O2SAT 98
--- NOTE | 2022-09-22 10:31 | ED.GENADULT ---
HPI - General Adult General Time Seen by Provider: 10:31 Date Seen: 09/22/22 Chief complaint: Edema Stated complaint: Legs swelling, shortness of breath Time Seen by Provider: 09/22/22 10:31 Source: patient, RN notes reviewed and old records reviewed Mode of arrival: ambulatory Limitations: no limitations History of Present Illness HPI narrative: Patient is an 82-year-old female coming in with family with concern of increased edema of her lower extremities. They noted increasing edema for while in her lower legs, she does not wear compression stockings they do not feel that they would likely get them on her. She does have underlying dementia. She had a question of shortness of breath but patient states she is having no symptoms right now. She denies any pain. They felt her legs were cooler yesterday than the rest of her skin, today her arms were cooler than the rest of her skin this morning. He notes that her belly seemed like it was tender last night. They called primary clinic this morning which is [facility] and were told to come to the ER. Patient tells me to ?ask him? when I ask her questions. She does specifically deny any pain at this time, denies being short of breath. Believe it is her who is with her and is her primary care provider at home. Related Data Home Medications Medication Instructions Recorded Confirmed acetaminophen 500 mg tablet 500 mg PO DAILY PRN 09/03/21 06/09/22 (Acetaminophen Extra Strength) aspirin 81 mg capsule 81 mg PO DAILY 09/03/21 06/09/22 furosemide 20 mg tablet 20 mg PO DAILY 09/03/21 06/09/22 metoprolol succinate 100 mg 100 mg PO DAILY 09/03/21 06/09/22 tablet,extended release 24 hr pravastatin 20 mg tablet 20 mg PO DAILY 09/03/21 06/09/22 cyanocobalamin (vitamin B-12) 1,000 mcg IM Q4W 06/09/22 06/09/22 1,000 mcg/mL injection solution Previous Rx's Medication Instructions Recorded levofloxacin 250 mg tablet 250 mg PO Q24H #5 tabs 06/11/22 Allergies Allergy/AdvReac Type Severity Reaction Status Date / Time No Known Drug Allergies Allergy Verified 09/04/21 09:56 Review of Systems Status of ROS: Reports: unobtainable due to mental status Narrative: Review of systems as provided by family member with her. Patient really is only able to tell me she has no acute pain, no shortness of breath at this time but on exam she complains of pain anywhere I touch her in her lower extremities. [facility] Medical History DNR (do not resuscitate) ?Z66 - Do not resuscitate (ICD-10) Osteoarthritis ?M19.90 - Unspecified osteoarthritis, unspecified site (ICD-10) Healthcare maintenance ?Z00.00 - Encounter for general adult medical examination without abnormal findings (ICD-10) Plantar fascial fibromatosis ?M72.2 - Plantar fascial fibromatosis (ICD-10) Severe dementia ?F03.90 - Unspecified dementia without behavioral disturbance (ICD-10) Esophageal reflux ?K21.9 - Gastro-esophageal reflux disease without esophagitis (ICD-10) Aortic stenosis, mild ?I35.0 - Nonrheumatic aortic (valve) stenosis (ICD-10) Hypertension ?I10 - Essential (primary) hypertension (ICD-10) Hyperlipidemia, unspecified ?E78.5 - Hyperlipidemia, unspecified (ICD-10) Malignant neoplasm of corpus uteri, unspecified ?C54.9 - Malignant neoplasm of corpus uteri, unspecified (ICD-10) Surgical History History of total abdominal hysterectomy (03/09/05) ?Z90.710 - Acquired absence of both cervix and uterus (ICD-10) History of esophagogastroduodenoscopy (11/30/12) ?Z98.890 - Other specified postprocedural states (ICD-10) S/P dilation and curettage (10/19/86) ?Z98.890 - Other specified postprocedural states (ICD-10) Family History Sister Renal cancer Pulmonary fibrosis Daughter Breast cancer Father Coronary artery disease Mother High blood pressure Social History (Updated 06/09/22 @ 14:30 by Loren Teresa MD) Narrative: Lives with . He wants her to be DNR/DNI. He notes a discussion he had with Dr. Saravia back in 2019 as the reason for his decision on this. Highest level of school completed/degree received: high school graduate Smoking Status: Never smoker Do you use any of these nicotine containing products: None Second hand tobacco smoke exposure: No (SPOUSE QUIT) How often do you have a drink containing alcohol: never How often do you have six or more drinks on one occasion: Never AUDIT-C Alcohol total score: 0 Non-prescribed substance use: denies use service: No Exam Const: Vital Signs, click to edit/add: Vital Signs - 24 hr 09/22/22 10:00 09/22/22 10:55 Temperature 97.0 F L Pulse Rate [Right Pulse Oximeter] 68 Respiratory Rate 20 Blood Pressure [Ri ght Upper Arm] 131/78 Pulse Oximetry 98 97 Oxygen Delivery Me thod Room Air Documenting provider has reviewed patient's vital signs: yes Common normals: no apparent distress, alert and well nourished General appearance: cooperative, comfortable, well kempt and well developed Nutritional appearance: overweight HENMT: Common normals: normocephalic, head/scalp atraumatic, hearing grossly normal bilaterally and external nose normal Head and scalp: normocephalic and atraumatic Face and sinus: normal facial exam Nose: external nose normal Eye: Common normals: PERRL, EOMs intact bilaterally, conjunctivae normal and no scleral icterus Conjunctiva: conjunctiva(e) normal Pupil: PERRL Neck & C-Spine: Common normals: full ROM, no lymphadenopathy, supple, no meningeal signs, no JVD and thyroid normal Thyroid: thyroid normal Chest: Common normals: inspection of chest normal and palpation of chest normal Resp: Common normals: normal respiratory effort, no retractions, no use of accessory muscles and clear to auscultation bilaterally Effort & inspection: able to speak in complete sentences Auscultation: clear to auscultation bilaterally Cardio: Common normals: no JVD, regular rate, regular rhythm, S1 normal heart sound, S2 normal heart sound, no gallops and no clicks Rate: regular rate Rhythm: regular rhythm Heart sounds: S1 normal and S2 normal Other: Soft systolic murmur heard upper sternal borders best. Records indicate history of aortic stenosis. GI: Common normals: Normal to inspection, nondistended, normoactive bowel sounds present, soft to palpation, non-tender, no hepatosplenomegaly and no masses Palpation: soft and no hepatosplenomegaly Extremity: Other: Edematous lower extremities with normal skin coloration, no erythema noted. Complains of pain wherever I palpate in her lower extremities. Neuro: Sensorium/orientation: alert Meningeal signs: no meningeal signs Psych: Appearance: well kempt Course Course Hospital Course: Unfortunately this patient has significant dimension cannot provide much of her history. She is alert, no apparent distress and oxygenating/breathing without any concerns. She does have increased edema in her lower extremities but do not know her baseline. She certainly could have congestive heart failure, see aortic history in her records with aortic stenosis. She does not seem to have overt pulmonary edema on clinical examination but will get full complement of labs and a portable chest x-ray. Nursing staff did do COVID which I do think is reasonable. Looking in her records in June she had history of a UTI, if we can will collect urinalysis. She is hemodynamically stable at this time will have her observed on pulse oximetry, get baseline EKG. Reevaluation(s) Time of Reevaluation #1: 13:14 Reevaluation #1: Patient is becoming restless to leave. Reviewed labs that are back thus far. The only pending test is the TSH in I will contact her if there is any abnormality with that. She states she is getting angry and wants to go home. I reviewed with her that we can make that happen. Chest x-ray showing no evidence of congestive heart failure, troponin and labs at her back thus far showing no concerning abnormality. Venous ultrasound was negative for blood clots. We discussed that this is peripheral edema, elevating legs and compression stockings are probably the best noninvasive modalities but does not sound like it is very reasonable for them at home. They admit that she probably does not keep her legs up as much as she should. Certainly increased diuretics might help this but it is more invasive and can lead to electrolyte deficiencies. She is stable enough that I believe they can follow up outpatient to talk about further management of peripheral edema. Vital Signs Vital signs: Initial Vital Signs Temperature 97.0 F L 09/22/22 10:00 Temperature Source Temporal Artery Scan 09/22/22 10:00 Pulse Rate 68 09/22/22 10:00 Respiratory Rate 20 09/22/22 10:00 Blood Pressure 131/78 09/22/22 10:00 Blood Pressure Mean 95 09/22/22 10:00 Blood Pressure Position Sitting 09/22/22 10:00 Pulse Oximetry 98 09/22/22 10:00 Oxygen Delivery Method Room Air 09/22/22 10:00 Vital Signs Temperature 97.0 F L 09/22/22 10:00 Pulse Rate 68 09/22/22 10:00 Respiratory Rate 20 09/22/22 10:00 Blood Pressure 131/78 09/22/22 10:00 Pulse Oximetry 98 09/22/22 10:00 Oxygen Delivery Method Room Air 09/22/22 10:00 Temperature 97.0 F L 09/22/22 10:00 Pulse Rate 68 09/22/22 10:00 Respiratory Rate 20 09/22/22 10:00 Blood Pressure 131/78 09/22/22 10:00 Pulse Oximetry 97 09/22/22 10:55 Oxygen Delivery Method Room Air 09/22/22 10:00 Medical Decision Making Lab Data Lab results reviewed: Yes I reviewed the patient's lab results Labs: Lab Results 09/22/22 09/22/22 09/22/22 Range/Units 10:03 10:55 12:10 WBC 4.85 (4.50-11.00) K/uL RBC 4.38 (4.00-5.20) m/uL Hgb 13.0 (12.0-16.0) gm/dL Hct 40.2 (33.0-51.0) % MCV 92 (80-100) fL MCH 30 (26-34) pg MCHC 32 (32-36) gm/dL RDW Coeff of Russ 13.4 (11.5-15.5) % Plt Count 188 (140-440) K/uL Neut % (Auto) 69.9 (42.0-72.0) % Lymph % (Auto) 15.1 L (20-44) % [place] % (Auto) 9.7 (0.0-11.0) % Eos % (Auto) 4.7 (0.0-7.0) % Baso % (Auto) 0.4 (0.0-3.0) % Neut # (Auto) 3.39 (1.7-7.0) K/uL Lymph # (Auto) 0.70 L (0.90-2.90) K/uL [place] # (Auto) 0.50 (0.00-0.90) K/UL Eos # (Auto) 0.23 (0.00-0.50) K/uL Baso # (Auto) 0.02 (0.00-0.30) K/uL Abs Immat Gran (auto) 0.01 (0.00-0.30) K/uL Imm/Tot Granulo (auto) 0.2 % Sodium 140 (135-149) mmol/L Potassium 3.6 (3.6-5.1) mmol/L Chloride 106 (96-114) mmol/L Carbon Dioxide 32 (20-32) mmol/L BUN 15 (7-30) mg/dL Creatinine 0.9 (0.5-1.5) mg/dL Estimated GFR 63 ml/min Glucose 86 (60-115) mg/dL Calcium 8.4 (8.4-10.6) mg/dL Total Bilirubin 0.8 (0.1-1.5) mg/dL AST 22 (12-35) U/L ALT 16 (4-35) U/L Alkaline Phosphatase 91 (40-150) U/L Troponin I < 0.01 L (0.01-0.04) ng/mL C-Reactive Protein < 0.5 L (0.5-1.0) mg/dL NT-Pro-B Natriuret Pep 739 pg/mL Total Protein 5.8 L (6.0-8.3) g/dL Albumin 3.3 (3.3-5.0) g/dL Urine Color Yellow (Yellow) Urine Appearance Clear (Clear) Urine pH 7.0 (5.0-8.5) Ur Specific Speed 1.015 (1.000-1.030) Urine Protein Negative (Negative) Urine Glucose (UA) Negative (Negative) Urine Ketones Negative (Negative) Urine Blood Negative (Negative) Urine Nitrite Negative (Negative) Urine Bilirubin Negative (Negative) Urine Urobilinogen 1.0 (0.2-1.0) Ur Leukocyte Esterase Negative (Negative) Urine RBC 0-2 (0-2) Urine WBC 0-2 (0-5) Ur Squamous Epith Cells Few (None-Few) Urine Bacteria None (None) SARS-CoV-2 (PCR) Negative SARS-CoV-2 (Negative) Influenza Type A (PCR) Negative PCR FLU A (Negative) Influenza Type B (PCR) Negative PCR FLU B (Negative) RSV (PCR) Negative PCR RSV (Negative) Imaging Data Chest x-ray: Attestation: I have reviewed the pertinent imaging results. Radiologist's impression: Patient: [facility] Facility:?[facility] Patient ID:?[id number] Site Patient ID:?[id number]. Site :?[id number] Study:?XRay Chest 1v portable-09/22/2022 12:18:39 PM Ordering Physician:Jeanna Cohen Final Report: INDICATION: increased edema TECHNIQUE: Chest 1 view. COMPARISON: None. FINDINGS: Cardiovascular and mediastinum: Heart size and vasculature are normal in caliber and appearance. Mediastinum is within normal limits. Lungs and pleural space: Lungs are clear. No sign of infiltrate or mass. No sign of pleural effusion. No pneumothorax. Bones and soft tissues: No significant findings. IMPRESSION: Unremarkable chest. Dictated by: Temo Esqueda MD @ 09/22/2022 12:24:07 (Electronic Signature) Venous US: Attestation: I have reviewed the pertinent imaging results. Radiologist's impression: Patient: [facility] Facility:?[facility] Patient ID:?[id number] Site Patient ID:?[id number]. Site :?[id number] Study:?US Extremity Bilateral DVT-09/22/2022 11:37:39 AM Ordering Physician:?Cameron Cohen Final Report: INDICATION: increased edema TECHNIQUE: Ultrasound venous duplex lower extremity bilateral. Compression venous exam was performed using garrison scale, color Doppler, and spectral Doppler imaging. COMPARISON: None. FINDINGS: Sonographic imaging demonstrates the common femoral, deep femoral, superficial femoral, popliteal, posterior tibial and greater saphenous veins to be fully compressible with normal color Doppler blood flow in both lower extremities. IMPRESSION: Normal bilateral lower extremity venous ultrasound, no sign of deep venous thrombosis. Dictated by: Temo Esqueda MD @ 09/22/2022 11:56:22 (Electronic Signature) ECG Data Attestation: I personally reviewed and interpreted this ECG as follows: (Sinus bradycardia, 56 beats per minute, PAC seen. No ischemia. QT corrected 395 milliseconds.) Prior ECG tracings: not available for review Critical Care Time Critical Care Time Critical Care Time: No Discharge Plan Discharge Clinical Impression: Peripheral edema Patient Disposition: Home w/ Parent or Adult Condition: Stable Instructions: Leg Edema (ED) Additional Instructions: Stay on current dose of Lasix, follow up in clinic to discuss further management and potential increase in diuretics with primary care provider. Elevating lower extremities to heart level as much as able to can be beneficial, compression with stockings or even Hasmukh wraps can help as well, talk to primary care provider about this further. And her stand that compression stockings may be difficult to get on and may not be a viable option at this time. Schedule clinic followup within the next week to review leg edema/peripheral edema and further management with primary care provider. In the interim, if there is worsening or further concern for decompensation or not doing well, seek re-evaluation. Activity Level: Activity as Tolerated Discharge Diet: Heart Healthy (2 gm sodium, low fat) Prescriptions: No Action acetaminophen [Acetaminophen Extra Strength] 500 mg tablet 500 mg PO DAILY PRN aspirin 81 mg capsule 81 mg PO DAILY furosemide 20 mg tablet 20 mg PO DAILY metoprolol succinate 100 mg tablet extended release 24 hr 100 mg PO DAILY pravastatin 20 mg tablet 20 mg PO DAILY cyanocobalamin (vitamin B-12) 1,000 mcg/mL solution 1,000 mcg IM Q4W levofloxacin 250 mg tablet 250 mg PO Q24H Qty: 5 0RF Follow Up/Referrals: Nga Jade DO [Primary Care Provider] - Stand Alone Forms: [facility] Info Instructions
--- NOTE | 2022-09-22 10:36 | CRLHL7_ITS ---
For Patients: As a result of the Century Cures Act, medical imaging exams and procedure reports are released immediately into your electronic medical record. You may view this report before your referring provider. If you have questions, please contact your health care provider. INDICATION: increased edema TECHNIQUE: Chest 1 view. COMPARISON: None. FINDINGS: Cardiovascular and mediastinum: Heart size and vasculature are normal in caliber and appearance. Mediastinum is within normal limits. Lungs and pleural space: Lungs are clear. No sign of infiltrate or mass. No sign of pleural effusion. No pneumothorax. Bones and soft tissues: No significant findings. IMPRESSION: Unremarkable chest. Dictated by: Temo Esqueda MD @ 09/22/2022 12:24:07 (Electronically Signed)
--- NOTE | 2022-09-22 10:42 | CRLHL7_ITS ---
For Patients: As a result of the Century Cures Act, medical imaging exams and procedure reports are released immediately into your electronic medical record. You may view this report before your referring provider. If you have questions, please contact your health care provider. INDICATION: increased edema TECHNIQUE: Ultrasound venous duplex lower extremity bilateral. Compression venous exam was performed using garrison scale, color Doppler, and spectral Doppler imaging. COMPARISON: None. FINDINGS: Sonographic imaging demonstrates the common femoral, deep femoral, superficial femoral, popliteal, posterior tibial and greater saphenous veins to be fully compressible with normal color Doppler blood flow in both lower extremities. IMPRESSION: Normal bilateral lower extremity venous ultrasound, no sign of deep venous thrombosis. Dictated by: Temo Esqueda MD @ 09/22/2022 11:56:22 (Electronically Signed)
[2022-09-22 10:51] LABS: PCR FLU A Negative PCR FLU A (Negative); PCR FLU B Negative PCR FLU B (Negative); PCR RSV Negative PCR RSV (Negative)
[2022-09-22 10:54] LABS: SARS PCR* Negative SARS-CoV-2 (Negative)
[2022-09-22 10:55] VITALS: O2SAT 97
[2022-09-22 11:09] LABS: Basophils Absolute Auto 0.02 K/uL (0.00-0.30); Basophils Percent Auto 0.4 % (0.0-3.0); Eosinophils Absolute Auto 0.23 K/uL (0.00-0.50); Eosinophils Percent Auto 4.7 % (0.0-7.0); Hematocrit 40.2 % (33.0-51.0); Immature Granulocytes Abs Auto 0.01 K/uL (0.00-0.30); Immature Granulocytes Pct Auto 0.2 %; Lymphocytes Percent Auto 15.1 % (20-44); Mean Corpuscular HGB Conc 32 gm/dL (32-36); Mean Corpuscular Hemoglobin 30 pg (26-34); Mean Corpuscular Volume 92 fL (80-100); Monocytes Percent Auto 9.7 % (0.0-11.0); Neutrophils Absolute Auto 3.39 K/uL (1.7-7.0); Neutrophils Percent Auto 69.9 % (42.0-72.0); Platelet Count* 188 K/uL (140-440); RDW Coefficient of Variation % 13.4 % (11.5-15.5); Red Blood Count 4.38 m/uL (4.00-5.20); White Blood Count* 4.85 K/uL (4.50-11.00)
[2022-09-22 11:13] LABS: Slide Review Reflex No
[2022-09-22 11:50] VITALS: BP 127/78; PULSE 68; RESP 18; O2SAT 98
[2022-09-22 12:27] LABS: Appearance Urine Clear (Clear); Bilirubin Urine Negative (Negative); Blood Urine Negative (Negative); Color Urine Yellow (Yellow); Glucose Urine Negative (Negative); Ketones Urine Negative (Negative); Leukocyte Esterase Urine Negative (Negative); Nitrite Urine Negative (Negative); Protein Urine Negative (Negative); Specific Gravity Urine 1.015 (1.000-1.030)
[2022-09-22 12:38] LABS: Albumin* 3.3 g/dL (3.3-5.0); Chloride* 106 mmol/L (96-114); Sodium* 140 mmol/L (135-149)
[2022-09-22 12:39] LABS: Potassium* 3.6 mmol/L (3.6-5.1)
[2022-09-22 12:41] LABS: Alkaline Phosphatase* 91 U/L (40-150); Aspartate Amino Transferase* 22 U/L (12-35); Bilirubin Total* 0.8 mg/dL (0.1-1.5); Carbon Dioxide* 32 mmol/L (20-32); Creatinine* 0.9 mg/dL (0.5-1.5); Estimated Glomerular Filt Rate 63 ml/min; Total Protein* 5.8 g/dL (6.0-8.3)
[2022-09-22 12:42] LABS: Alanine Aminotransferase* 16 U/L (4-35); Blood Urea Nitrogen* 15 mg/dL (7-30); Calcium* 8.4 mg/dL (8.4-10.6); Glucose* 86 mg/dL (60-115)
[2022-09-22 12:47] LABS: RBC Urine 0-2 (0-2); Squamous Epithelial Cell Urine Few (None-Few); WBC Urine 0-2 (0-5)
[2022-09-22 12:53] LABS: C Reactive Protein* < 0.5 mg/dL (0.5-1.0); NT Pro B Type NatriureticPept* 739 pg/mL; Troponin I* < 0.01 ng/mL (0.01-0.04)
== END 2022-09-22 13:40 | disposition home or self-care (01) ==
PROVIDERS: Emergency Provider Family Medicine; PCP Family Medicine
DX: R60.0 Localized edema (principal)
CPT/HCPCS: 36415; 71045; 80053; 81001; 83880; 84443; 84484; 85025; 86140; 87631; 93005; 93970; 94761; 99284; 99285

== ENCOUNTER 2023-06-08 20:05 | Emergency (ER) | payer MEDICARE, SELFPAY ==
[2023-06-08 20:11] VITALS: BP 124/75; PULSE 94; RESP 18; TEMP 36.5; O2SAT 93; BMI 26.6
--- NOTE | 2023-06-08 20:18 | ED.GENADULT ---
HPI - General Adult General Date Seen: 06/08/23 Chief complaint: Altered Mental Status Stated complaint: weak, uncomfortable Time Seen by Provider: 06/08/23 20:09 History of Present Illness HPI narrative: 83-year-old female with a history of previous UTI, underlying dementia, and history of lower extremity edema (seen in the ER last summer) In review of her records from [facility] through [facility] link she has a history of hypertension, aortic stenosis, hyperlipidemia, GERD, plantar fibromatosis, osteoarthritis In records from [facility] it looks like there was in [place] today who entered and noted in her chart. The note indicates that ?they have started her on Seroquel and noted improvement in the 1st few days but now having worsening behaviors. She was up all night last night yelling for help. Actually knocking on other residents stores. Dr. Rivas is not in today and will not be in tomorrow. She may would not want is prescribed other medication as she had tried the medications that were recommended by the psychiatrist without relief. Dr. Rivas does not typically treat patients with advanced dementia and behaviors. Lillian will reach out to Dr. Cates who goes to [facility] to see patients since he only goes every 6 months. She may have to go to the clinic to see Dr. Cates? Telephone note from 06/04. Patient moved in to [facility] on 05/26. Lillian states that the patient is struggling with being in a new environment and spends a lot of time yelling for help. She wants someone with her at all times and hollering mostly during the day. Has not slept well the last 2 nights. She has a hard time getting and staying asleep. Check you would like a call back to discuss medication management. Please call back to assist Telephone note from 06/01 ? Left detailed message for Lillian that I had to talk with patient's before increasing medication as there are risks associated with it and make sure she was still doing ok with it. I have no fax number to send order to so I do need that. I have not received orders in regards to her admission there either so was watching for those orders to possibly add the seroquel increase to those. She should either fax her admission orders and I can add it to them or she needs to call back with fax number.? Telephone note 05/31 Patient will be establishing care with provider that comes to facility but he only comes once every 6 months. Patient is in assisted living memory care. RN will be sending over admission orders as well as orders for physical therapy and occupational therapy. RN wondering about giving any seroquel during the day as a PRN? She is yelling for help all day and very confused. Other residents are becoming agitated with her as well. She is taking seroquel 25 mb at bedtime. Telephone note from 05/04 ? took patient off the zyprexa and about 10 days ago started her on seroquel. He gives it to her at supper time and she is ready for bed about 8 or 9. She sleeps a few hours at a time and this is much improved. She is not groggy in the morning anymore. He says that he has noticed her hallucinations are a little bit better. Overall doing better. Edema about the same, no worse.? History is not obtainable from the patient because she has dementia. She is not a reliable historian is not answering questions. History from the patient's and daughter is that she does have dementia. She had been struggling with agitation, anxiety, and nighttime restlessness for a few months at home. They had tried her on olanzapine a couple months ago but that made her worse. It made her ?more psychotic?, more hallucinatory?, and more agitated. They stop the olanzapine a few weeks ago and started her on Seroquel. Perhaps 2 or 3 weeks ago. They were giving her 25 mg in the evening before bed and that seemed to help her sleep through the night better but she was still somewhat restless and anxious throughout the day. About 10 days ago she entered into her current memory care/assisted living. Since then she has had escalation in anxiety and behaviors. She will sometimes scream and cry for hours on 9 during the day. At night sometimes she will go down the hallway and non con other residence doors. She has been agitated and screaming. Sometimes angry. She has never been violent or physically aggressive to anyone. Because of her outbursts her primary doctor added an additional 25 mg Seroquel each morning. She still on 25 mg in the evening. They split the morning Seroquel in to 212.5 mg doses, 1 around 8, and 1 after lunch. Despite the extra Seroquel she is still very agitated. She had another episode last night where she was pounding on other residents torso and was very agitated throughout the day. Her family has been trying to get through to her primary care provider, Dr. Saravia. However that doctor is out of the office today and tomorrow. They do not know what else to do so they came here to the ER. The nurses at her assisted living were suggesting that she might need to be checked for UTI or a medical cause of delirium She has had a dry cough for the past few months, unchanged from baseline. No other known symptoms. Related Data Home Medications Medication Instructions Recorded Confirmed acetaminophen 500 mg tablet 500 mg PO DAILY PRN 09/03/21 06/09/22 (Acetaminophen Extra Strength) aspirin 81 mg capsule 81 mg PO DAILY 09/03/21 06/09/22 furosemide 20 mg tablet 20 mg PO DAILY 09/03/21 06/09/22 metoprolol succinate 100 mg 100 mg PO DAILY 09/03/21 06/09/22 tablet,extended release 24 hr pravastatin 20 mg tablet 20 mg PO DAILY 09/03/21 06/09/22 cyanocobalamin (vitamin B-12) 1,000 mcg IM Q4W 06/09/22 06/09/22 1,000 mcg/mL injection solution quetiapine 25 mg tablet 25 mg PO QPM 06/08/23 06/08/23 Previous Rx's Medication Instructions Recorded levofloxacin 250 mg tablet 250 mg PO Q24H #5 tabs 06/11/22 amoxicillin 500 mg capsule 1,000 mg (2 x 500 mg) PO BID 7 06/08/23 days #28 caps quetiapine 25 mg tablet (Seroquel) 25 mg PO DAILY PRN agitation #7 06/08/23 tabs quetiapine 25 mg tablet (Seroquel) See Rx Instructions .Route 06/08/23 .COMPLEX #21 tabs Allergies Allergy/AdvReac Type Severity Reaction Status Date / Time No Known Drug Allergies Allergy Verified 09/04/21 09:56 [facility] Medical History DNR (do not resuscitate) ?Z66 - Do not resuscitate (ICD-10) Osteoarthritis ?M19.90 - Unspecified osteoarthritis, unspecified site (ICD-10) Healthcare maintenance ?Z00.00 - Encounter for general adult medical examination without abnormal findings (ICD-10) Plantar fascial fibromatosis ?M72.2 - Plantar fascial fibromatosis (ICD-10) Severe dementia ?F03.90 - Unspecified dementia without behavioral disturbance (ICD-10) Esophageal reflux ?K21.9 - Gastro-esophageal reflux disease without esophagitis (ICD-10) Aortic stenosis, mild ?I35.0 - Nonrheumatic aortic (valve) stenosis (ICD-10) Hypertension ?I10 - Essential (primary) hypertension (ICD-10) Hyperlipidemia, unspecified ?E78.5 - Hyperlipidemia, unspecified (ICD-10) Malignant neoplasm of corpus uteri, unspecified ?C54.9 - Malignant neoplasm of corpus uteri, unspecified (ICD-10) Surgical History History of total abdominal hysterectomy (03/09/05) ?Z90.710 - Acquired absence of both cervix and uterus (ICD-10) History of esophagogastroduodenoscopy (11/30/12) ?Z98.890 - Other specified postprocedural states (ICD-10) S/P dilation and curettage (10/19/86) ?Z98.890 - Other specified postprocedural states (ICD-10) Family History Sister Renal cancer Pulmonary fibrosis Daughter Breast cancer Father Coronary artery disease Mother High blood pressure Social History (Updated 06/09/22 @ 14:30 by Loren Teresa MD) Narrative: Lives with . He wants her to be DNR/DNI. He notes a discussion he had with Dr. Saravia back in 2020 as the reason for his decision on this. Highest level of school completed/degree received: high school graduate Smoking Status: Never smoker Do you use any of these nicotine containing products: None Second hand tobacco smoke exposure: No (SPOUSE QUIT) How often do you have a drink containing alcohol: never How often do you have six or more drinks on one occasion: Never AUDIT-C Alcohol total score: 0 Non-prescribed substance use: denies use service: No Exam Narrative: Exam Narrative: Constitutional: Appears well-developed and well-nourished. Alert. Sitting up in her bedside chair. She is looking down at the floor. She really does not participate in our conversation. When I try to talk to her directly she sees scoughs and says that she just wants to go home. HENT: Head: Atraumatic. Nose: Nose normal. Mouth/Throat: Oral mucosa is clear and moist. no trismus. Pharynx normal. Eyes: Conjunctivae normal. EOM normal. Pupils equal, round, and reactive to light. No scleral icterus. Neck: Normal range of motion. Neck supple. No tracheal deviation present. Cardiovascular: Normal rate, regular rhythm. No gallop. No friction rub. No murmur heard. Symmetric radial artery pulses Pulmonary/Chest: Effort normal. No stridor. No respiratory distress. No wheezes. No rales. No rhonchi . No tenderness. Abdominal: Soft. Bowel sounds normal. No distension. No mass. No tenderness. No rebound. No guarding. No CVA tenderness. Musculoskeletal: No T or L-spine tenderness. Pelvis is stable per RUE: Normal range of motion. No tenderness. No deformity LUE: Normal range of motion. No tenderness. No deformity RLE: Normal range of motion. No edema. No tenderness. No deformity LLE: Normal range of motion. No edema. No tenderness. No deformity Neurological: Alert and seems to be oriented to person. Not answering questions about orientation to place or date.. Normal strength. CN II-VII intact. No sensory deficit. GCS eye subscore is 4. GCS verbal subscore is 5. GCS motor subscore is 6. Normal coordination no focal deficits per Skin: Skin is warm and dry. No rash noted. No pallor. Normal capillary refill. Psychiatric: Flat affect. Seems irritated to be here. However she is cooperating with exam. She is nonviolent. She is not agitated or aggressive. She is not screaming. Const: Vital Signs, click to edit/add: Vital Signs - 24 hr 06/08/23 20:11 Temperature 97.7 F Pulse Rate [Pulse Oximeter] 94 Respiratory Rate 18 Blood Pressure [Ri ght Upper Arm] 124/75 Pulse Oximetry 93 Oxygen Delivery Me thod Room Air Course Vital Signs Vital signs: Initial Vital Signs Temperature 97.7 F 06/08/23 20:11 Temperature Source Temporal Artery Scan 06/08/23 20:11 Pulse Rate 94 06/08/23 20:11 Pulse Rhythm Regular 06/08/23 20:11 Respiratory Rate 18 06/08/23 20:11 Blood Pressure 124/75 06/08/23 20:11 Blood Pressure Mean 91 06/08/23 20:11 Blood Pressure Position Sitting 06/08/23 20:11 Pulse Oximetry 93 06/08/23 20:11 Oxygen Delivery Method Room Air 06/08/23 20:11 Vital Signs Temperature 97.7 F 06/08/23 20:11 Pulse Rate 94 06/08/23 20:11 Respiratory Rate 18 06/08/23 20:11 Blood Pressure 124/75 06/08/23 20:11 Pulse Oximetry 93 06/08/23 20:11 Oxygen Delivery Method Room Air 06/08/23 20:11 Temperature 97.7 F 06/08/23 20:11 Pulse Rate 94 06/08/23 20:11 Respiratory Rate 18 06/08/23 20:11 Blood Pressure 124/75 06/08/23 20:11 Pulse Oximetry 93 06/08/23 20:11 Oxygen Delivery Method Room Air 06/08/23 20:11 Medical Decision Making MDM Narrative Medical decision making narrative: The this is an 83-year-old female brought to the ER today by her and daughter with concern for escalating anxiety, bouts of screaming, and agitated behavior. She has a history of advancing dementia and is not oriented to place or time. She has been struggling with behaviors, anxiety, and trouble sleeping for a couple of months. She was recently placed into a memory care assisted living because her was just not able to care for her anymore. Her primary care had tried her on olanzapine a month or 2 ago but that made her symptoms worse. She was started on Seroquel at bedtime a few weeks ago at home and that seemed to help overnight. Since entering the to the [facility] they have now also put her on Seroquel morning and night because of increasing agitation and anxiety throughout the day. Although she is very anxious and sometimes screaming and sometimes says aggressive words he has never been physically aggressive or harmful to herself, her family, or any other residents of her assisted living. Suspect that her symptoms likely reflect progressing dementia as well as exacerbating dementia because of change in living situation only 10 days ago. Differential would include electrolyte, infectious, metabolic causes of delirium, head injury, cardiac ischemia. She has had a cough for the past few months. We did obtain laboratory workup which shows normal sodium, normal kidney function, normal blood sugar. CBC normal. Screening EKG shows no to sign of ischemia. Head CT shows no evidence for intracranial bleed. It does show opacification of the right mastoid air cells. On my clinical exam she does have some fluid behind the right TM so this could represent a possible otitis. Will treat her with a course of Amoxil for that . First dose given in the ER tonight. However am skeptical that the ear infection is causing her agitation. Chest x-ray is negative for any focal infiltrate as a cause for her cough. She is not having any difficulty breathing or hypoxia. Thyroid normal. EKG nonischemic. Urinalysis shows 5-10 WBC but also squamous epithelial cells suggesting that this is a contaminated specimen and not a true UTI. At this point no clear medical cause for delirium or abnormal behavior. I ordered evaluation by DEC. I discussed the patient's presentation with the DEC counselor over the phone. We discussed that our goal with consultation would be to arrange tele psych evaluation for medication adjustments and/or arrange an expeditious outpatient psychiatric evaluation for med adjustment. DEC does not have capability for med recommendations or tele psych evaluation. They are also not able to get her in for a rapid outpatient appointment. They indicate that an outpatient psych evaluation would be within the next few weeks and likely would be slower than just having her follow-up with primary for med adjustment. I discussed with BRIAN whether not we feel the patient would meet criteria and/or benefit from an inpatient [facility] psych hospitalization for med adjustment. At this point we really do not think she would benefit from a [facility] psych admission. Furthermore, she would likely have to board here in the ER in [place] for a few days waiting to be admitted or transferred to [facility] psych. Likely this change in her living situation would probably cause further exacerbation in her behaviors and dementia and ultimately might make her worse. Since there would not be any real benefit from DEC evaluation, we decided not to have her evaluated. She was not evaluated by BRIAN mitchell. Ideally, we would have this patient follow-up with her primary care (or psychiatrist) for med adjustment. She does not currently have psych yet. Her primary care provider is out of town. Therefore, ER will have to supervisor rubber covering for her other medical providers and make temporary med adjustments. It sounds like she did have a clear benefit when she was started on Seroquel HS at home before she entered into her assisted living. Therefore we will increase her dose of Seroquel, rather than change to other medications. Plan will be to increase her morning dose of Seroquel from 12.5 mg up to 25 mg. Will add a 2nd p.r.n. dose of Seroquel 25 mg during the day. We will increase her nighttime dose of Seroquel up to 50 mg. I discussed with the patient's and daughter that these med changes do carry risk, most notably over sedation, falls, delirium, or worsening agitation. However it is clear that we do need to make a change and that her current living situation and medication regimen his not adequate for patient comfort, well-being, or for safety. They agree. They also understand that she needs to follow up with primary care to recheck and make further medications adjustments within 1 week. I will send a 1 week supply of her higher dose Seroquel to the pharmacy. requests that I sent prescriptions for the antibiotics for her sinuses/mastoid and for the higher doses of Seroquel to his pharmacy at [facility] in [place]. He says they are not fully set up with the delivery pharmacy for the patient's assisted living yet. Prescriptions were sent to [facility] in [place] For tonight we gave her an extra 25 mg dose of Seroquel while she was here in the ER. We gave her her 1st dose of amoxicillin while she was here in the ER. We will also send want additional 25 mg tablet of Seroquel with the patient's family so that the nighttime nurses can use it p.r.n. overnight. Lab Data Labs: Lab Results 06/08/23 06/08/23 Range/Units 20:55 21:15 WBC 5.88 (4.50-11.00) K/uL RBC 4.37 (4.00-5.20) m/uL Hgb 13.3 (12.0-16.0) gm/dL Hct 40.6 (33.0-51.0) % MCV 93 (80-100) fL MCH 30 (26-34) pg MCHC 33 (32-36) gm/dL RDW Coeff of Russ 12.8 (11.5-15.5) % Plt Count 210 (140-440) K/uL Neut % (Auto) 70.2 (42.0-72.0) % Lymph % (Auto) 16.0 L (20-44) % [place] % (Auto) 8.2 (0.0-11.0) % Eos % (Auto) 5.1 (0.0-7.0) % Baso % (Auto) 0.3 (0.0-3.0) % Neut # (Auto) 4.13 (1.7-7.0) K/uL Lymph # (Auto) 0.90 (0.90-2.90) K/uL [place] # (Auto) 0.50 (0.00-0.90) K/UL Eos # (Auto) 0.30 (0.00-0.50) K/uL Baso # (Auto) 0.02 (0.00-0.30) K/uL Abs Immat Gran (auto) 0.01 (0.00-0.30) K/uL Imm/Tot Granulo (auto) 0.2 % Sodium 140 (135-149) mmol/L Potassium 3.3 L (3.6-5.1) mmol/L Chloride 106 (96-114) mmol/L Carbon Dioxide 27 (20-32) mmol/L Anion Gap 7 (7-15) mEq/L BUN 14 (7-30) mg/dL Creatinine 1.0 (0.5-1.5) mg/dL Estimated Creat Clear 34.02 Estimated GFR 55 ml/min Glucose 102 (60-115) mg/dL Calcium 9.5 (8.4-10.6) mg/dL Total Bilirubin 0.9 (0.1-1.5) mg/dL AST 21 (12-35) U/L ALT 12 (4-35) U/L Alkaline Phosphatase 121 (40-150) U/L Total Protein 6.7 (6.0-8.3) g/dL Albumin 4.0 (3.3-5.0) g/dL TSH 1.830 (0.270-4.200) uIU/mL Urine Color Yellow (Yellow) Urine Appearance Cloudy A (Clear) Urine pH 5.5 (5.0-8.5) Ur Specific [place] 1.025 (1.000-1.030) Urine Protein Negative (Negative) Urine Glucose (UA) Negative (Negative) Urine Ketones Trace A (Negative) Urine Blood Negative (Negative) Urine Nitrite Negative (Negative) Urine Bilirubin Negative (Negative) Urine Urobilinogen 1.0 (0.2-1.0) Ur Leukocyte Esterase Trace A (Negative) Urine RBC 0-2 (0-2) Urine WBC 5-10 A (0-5) Ur Squamous Epith Cells Moderate A (None-Few) Calcium Oxalate Crystal Few A (None) Urine Bacteria Moderate A (None) Urine Yeast Few A (None) Imaging Data CT scan - head: Attestation: I have reviewed the pertinent imaging results. Radiologist's impression: IMPRESSION 1. No CT evidence of acute intracranial abnormality. 2. Senescent changes including generalized parenchymal volume loss and findings likely reflecting sequela of chronic small vessel ischemia. 3. Complete opacification of the right mastoid air cells and middle ear cavity. Chest x-ray: Attestation: I have reviewed the pertinent imaging results. Radiologist's impression: IMPRESSION: No consolidation. ECG Data Attestation: I personally reviewed and interpreted this ECG as follows: Interpretation: Normal sinus rhythm with sinus arrhythmia Rate: 82 GA: 132 QRS axis: Low-voltage QRS. Normal axis ST segment/T wave: No ST segment elevation or depression QTc: 462 Discharge Plan Discharge Clinical Impression: Dementia with behavioral disturbance, Acute infection of nasal sinus Patient Disposition: Home w/ Parent or Adult Condition: Stable Instructions: Sinusitis (ED), Dementia (ED) Additional Instructions: Please follow-up with her regular doctor through the [facility] as soon as possible (within 1 week) to check in for her behaviors and make further adjustments to her medications, if needed. They could facilitate a visit with geriatric psychiatry as this is a complicated disease management with no quick fix and probably exacerbated by a new setting for her and being away from family for the first time in many years. It often takes months for dementia patients to settle into new environments. She might do better sleeping upright in a recliner. She did rest well in the ER sitting in more of an upright position. For now, we will make the following changes to her medications to help alleviate her anxiety and agitation. 1. Keep her morning time dose of Seroquel to 25 mg 2. Increase her nighttime dose of Seroquel to 50 mg 3. Add one extra dose of Seroquel 25 mg during the day or night, to be used if needed for agitation or anxiety. We will also put her on antibiotics (amoxicillin) to treat for possible sinus infection (her CT scan shows some fluid in her right mastoid air cells). One dose of a PRN seroquel tablet will be sent with for her to take as needed tonight if she displays continued agitation. I have sent prescriptions in to your [facility] for the new higher dose of Seroquel and for the antibiotics. Remember, if you have any problems, you can come back to the ER right away to be rechecked. Prescriptions: New quetiapine [Seroquel] 25 mg tablet 25 mg PO DAILY PRN (Reason: agitation) Qty: 7 2RF amoxicillin 500 mg capsule 1,000 mg PO BID 7 Days Qty: 28 0RF quetiapine [Seroquel] 25 mg tablet See Rx Instructions .ROUTE .COMPLEX Qty: 21 0RF Rx Instructions: 25mg (one tablet) PO QAM and 50mg (two tablets) PO QHS No Action acetaminophen [Acetaminophen Extra Strength] 500 mg tablet 500 mg PO DAILY PRN aspirin 81 mg capsule 81 mg PO DAILY furosemide 20 mg tablet 20 mg PO DAILY metoprolol succinate 100 mg tablet extended release 24 hr 100 mg PO DAILY pravastatin 20 mg tablet 20 mg PO DAILY cyanocobalamin (vitamin B-12) 1,000 mcg/mL solution 1,000 mcg IM Q4W levofloxacin 250 mg tablet 250 mg PO Q24H Qty: 5 0RF quetiapine 25 mg tablet 25 mg PO QPM Follow Up/Referrals: Nga Jade DO [Primary Care Provider] - Stand Alone Forms: [employer] Info Instructions
--- NOTE | 2023-06-08 20:54 | CT_ITS ---
Patient: DANIELA OLIVAREZ Facility:?[facility] RIS Patient ID:?[id number] Site Patient ID:?[id number] Site :?[id number] Study:?CT-Head W/O-06/08/2023 9:46:20 PM Ordering Physician:DENIS Final Report: CLINICAL HISTORY Altered mental status; agitation. TECHNIQUE Standard helical CT image acquisition through the head was performed. COMPARISON None available. FINDINGS No CT evidence of acute intracranial hemorrhage, extra-axial collection, mass effect or midline shift. Briones-white matter differentiation is preserved. Moderate generalized parenchymal with resulting prominence of cerebral sulci and the ventricular system. Patchy hypoattenuation in the white matter of both hemispheres likely reflects sequela of chronic small vessel ischemia. Intracranial atherosclerotic calcification. The calvarium is unremarkable. The orbits are unremarkable. The paranasal sinuses are well aerated. Complete opacification of the right mastoid air cells and middle ear cavity. IMPRESSION 1. No CT evidence of acute intracranial abnormality. 2. Senescent changes including generalized parenchymal volume loss and findings likely reflecting sequela of chronic small vessel ischemia. 3. Complete opacification of the right mastoid air cells and middle ear cavity. Please note that all CT scans at this facility use dose modulation, iterative reconstruction, and/or weight-based dosing when appropriate to reduce radiation dose to as low as reasonably achievable. Dictated by Damir Shepherd MD @ 06/08/2023 10:11:35 PM Signed by:?Damir Shepherd MD @06/08/2023 10:11:35 PM (Electronic Signature)
--- NOTE | 2023-06-08 20:54 | XR_ITS ---
Patient: DANIELA OLIVAREZ Facility:?[facility] Patient ID:?[id number] Site Patient ID:?[id number] Site :?[id number] Study:?XRay-Chest 2V-06/08/2023 9:47:39 PM Ordering Physician:DENIS Final Report: INDICATION: Cough. TECHNIQUE: Chest 2 views. COMPARISON: None. FINDINGS: Cardiovascular and mediastinum: Heart size and vasculature are normal in caliber. Aortic atherosclerotic calcifications. Lungs and pleural spaces: Lungs are clear. No sign of infiltrate or mass. No sign of pleural effusion. No pneumothorax. Bones and soft tissues: Degenerative changes of the spine and shoulders. IMPRESSION: No consolidation. Dictated by Hao Eckert MD @ 06/08/2023 10:07:16 PM Signed by:?Hao Eckert MD @06/08/2023 10:07:16 PM (Electronic Signature)
[2023-06-08 21:12] LABS: Appearance Urine Cloudy (Clear); Bilirubin Urine Negative (Negative); Blood Urine Negative (Negative); Color Urine Yellow (Yellow); Glucose Urine Negative (Negative); Ketones Urine Trace (Negative); Leukocyte Esterase Urine Trace (Negative); Nitrite Urine Negative (Negative); Protein Urine Negative (Negative); Specific Gravity Urine 1.025 (1.000-1.030); pH Urine 5.5 (5.0-8.5)
[2023-06-08 21:24] LABS: Basophils Absolute Auto 0.02 K/uL (0.00-0.30); Basophils Percent Auto 0.3 % (0.0-3.0); Eosinophils Percent Auto 5.1 % (0.0-7.0); Hematocrit 40.6 % (33.0-51.0); Hemoglobin* 13.3 gm/dL (12.0-16.0); Immature Granulocytes Abs Auto 0.01 K/uL (0.00-0.30); Immature Granulocytes Pct Auto 0.2 %; Mean Corpuscular HGB Conc 33 gm/dL (32-36); Mean Corpuscular Hemoglobin 30 pg (26-34); Mean Corpuscular Volume 93 fL (80-100); Monocytes Percent Auto 8.2 % (0.0-11.0); Neutrophils Absolute Auto 4.13 K/uL (1.7-7.0); Neutrophils Percent Auto 70.2 % (42.0-72.0); Platelet Count* 210 K/uL (140-440); RDW Coefficient of Variation % 12.8 % (11.5-15.5); Red Blood Count 4.37 m/uL (4.00-5.20); White Blood Count* 5.88 K/uL (4.50-11.00)
[2023-06-08 21:27] LABS: Bacteria Urine Moderate; RBC Urine 0-2 (0-2); Squamous Epithelial Cell Urine Moderate (None-Few)
[2023-06-08 21:28] LABS: Calcium Oxalate Crystals Urine Few
[2023-06-08 21:29] LABS: Slide Review Reflex No
[2023-06-08 21:35] LABS: Chloride* 106 mmol/L (96-114)
[2023-06-08 21:36] LABS: Potassium* 3.3 mmol/L (3.6-5.1); Sodium* 140 mmol/L (135-149)
[2023-06-08 21:38] LABS: Alanine Aminotransferase* 12 U/L (4-35); Alkaline Phosphatase* 121 U/L (40-150); Anion Gap 7 mEq/L (7-15); Aspartate Amino Transferase* 21 U/L (12-35); Bilirubin Total* 0.9 mg/dL (0.1-1.5); Blood Urea Nitrogen* 14 mg/dL (7-30); Carbon Dioxide* 27 mmol/L (20-32); Est. Creatinine Clearance* 34.02; Estimated Glomerular Filt Rate 55 ml/min; Glucose* 102 mg/dL (60-115); Total Protein* 6.7 g/dL (6.0-8.3)
[2023-06-08 21:39] LABS: Calcium* 9.5 mg/dL (8.4-10.6)
[2023-06-08] MEDS: AMOXICILLIN 250 MG CAPSULE 1000 MG PO (23:22)
[2023-06-08] MEDS: QUETIAPINE 25 MG TABLET PO ×2 (23:22)
== END 2023-06-08 23:27 | disposition home or self-care (01) ==
PROVIDERS: Emergency Provider Emergency Medicine; PCP Family Medicine
DX: F03.918 Unspecified dementia, unspecified severity, with other behavioral disturbance (principal); J01.90 Acute sinusitis, unspecified
CPT/HCPCS: 36415; 70450; 71046; 80053; 81001; 84443; 85025; 87086; 87186; 93005; 99284; 99285; A9270

== ENCOUNTER 2023-06-14 13:16 | Emergency (ER) | payer MEDICARE, SELFPAY ==
[2023-06-14 13:23] VITALS: BP 110/88; PULSE 103; RESP 20; TEMP 36.8; O2SAT 93
--- NOTE | 2023-06-14 13:29 | CT_ITS ---
Patient: DANIELA OLIVAREZ Facility:?[facility] Patient ID:?[id number] Site Patient ID:?[id number]. Site :?[id number] Study:?CT-Spine without contrast-06/14/2023 1:58:20 PM Ordering Physician:Vicki Cardenas Final Report: INDICATION: Fall. TECHNIQUE: CT of the cervical spine without contrast. Coronal and sagittal reformats are included. COMPARISON: None. FINDINGS: No acute fracture or traumatic malalignment of the cervical spine. Craniocervical junction alignment is maintained. Mild cervical kyphosis. Moderate to advanced disc degeneration C3-4 through C7-T1. Grade 1 degenerative anterolisthesis C2-3 and C3-4. Scattered uncovertebral/facet arthrosis without high-grade neural foraminal stenosis. No high grade spinal canal stenosis as far as visualized. Imaged intracranial structures, cervical and paraspinous soft tissues are normal in appearance. The visualized pulmonary apices are clear. IMPRESSION: 1. No acute fracture or traumatic malalignment of the cervical spine. Please note that all CT scans at this facility use dose modulation, iterative reconstruction, and/or weight-based dosing when appropriate to reduce radiation dose to as low as reasonably achievable. Dictated by Justin Rodriguez MD @ 06/14/2023 2:40:17 PM Signed by:?Justin Rodriguez MD @06/14/2023 2:40:17 PM (Electronic Signature)
--- NOTE | 2023-06-14 13:29 | CT_ITS ---
Patient: DANIELA OLIVAREZ Facility:?[facility] Patient ID:?[id number] Site Patient ID:?[id number]. Site :?[id number] Study:?CT-Head without contrast-06/14/2023 1:56:52 PM Ordering Physician:Vicki Cardenas Final Report: INDICATION: Fall. Memory loss. TECHNIQUE: CT of the head without contrast. Coronal and sagittal reformats are included. COMPARISON: Head CT from 06/08/2023. FINDINGS: No acute intracranial hemorrhage. No mass effect or midline shift. No hydrocephalus or extra-axial collections. Patchy white matter hypoattenuation, typical for chronic microvascular ischemic change. Hyof-ke-gsbxxlpw generalized parenchymal volume loss. No acute osseous abnormalities. A right-sided mastoid effusion, likely reactive/inflammatory. Left-sided mastoid air cells are clear. Normal soft tissues. IMPRESSION: IMPRESSION: 1. No acute intracranial abnormalities. Please note that all CT scans at this facility use dose modulation, iterative reconstruction, and/or weight-based dosing when appropriate to reduce radiation dose to as low as reasonably achievable. Dictated by Justin Rodriguez MD @ 06/14/2023 2:34:22 PM Signed by:?Justin Rodriguez MD @06/14/2023 2:34:22 PM (Electronic Signature)
--- OUTSIDE RECORDS SUMMARY | 2023-06-14 13:34 | XMS_ITS | Clinical Summary ---
Author Name Unknown Organization [employer] [facility] [employer] Address [place], [place] [address] Care Team Providers Care Paper Bag Machine Operator Name Role Phone Jeff Thompson Unavailable [phone] Nga Jade DO Primary Care Provider [phone] Allergies No known active allergies Medications Medication Sig Dispensed Refills Start Date End Date Status aspirin enteric coated 81 mg tablet Take 1 tablet by mouth once daily with a meal. 0 3 Active acetaminophen (TYLENOL EXTRA STRGTH) 500 mg tablet Take 2 tablets by mouth once daily. Max acetaminophen dose: 4000mg in 24 hrs. 0 8 Active Diaper,Brief, Adult,DisposableInd ications:Mixed incontinence,Severe dementia (HC) For home use. 120 Each 3 1 Active Syringe with Needle, Disp, 1 mL 25 gauge x 1 syrgIndications:Vit moore B12 deficiency As directed. 100 Each 1 Active B-D Insulin Syringe 1cc/25Gx1 1 mL 25 x 1 syrgIndications:Vit moore B 12 deficiency USE DIRECTED 100 Each 2 Active polyethylene glycoL (Miralax) 17 gram/scoop powder Mix 1 scoop in liquid then take by mouth. Active maltodextrin (FIBER POWDER ORAL) Take by mouth. Active inhalational spacing deviceIndications:C hronic cough For home use with inhaler (already has inhaler) 1 Each 4 Active cyanocobalamin (VITAMIN B12) 1,000 mcg/mL injectionIndication s:Vitamin B12 deficiency INJECT 1 ML (1,000 MCG) INTO THE MUSCLE EVERY 4 WEEKS. 3 mL 3 4 Active furosemide (LASIX) 20 mg tabletIndications:H ypertension, unspecified type 1 pill every other day alternating with 2 pills every other day 108 Tablet 3 4 Active pravastatin (PRAVACHOL) 20 mg tabletIndications:H yperlipidemia, unspecified hyperlipidemia type Take 1 Tablet (20 mg) by mouth at bedtime. 90 Tablet 3 4 Active budesonide-formoter oL (Symbicort) 160-4.5 mcg/actuation (160-4.5 mcg each actuation) inhalerIndications: Chronic cough Inhale 2 Puffs by mouth two times daily. 10.2 g 3 4 Active QUEtiapine (SEROQUEL) 25 mg tabletIndications:S evere dementia with agitation, unspecified dementia type (HC) Take 1 Tablet (25 mg) by mouth two times daily. 180 Tablet 3 4 Active QUEtiapine (SEROQUEL) 25 mg tabletIndications:S evere dementia with agitation, unspecified dementia type (HC) Take 1 Tablet (25 mg) by mouth at bedtime. 90 Tablet 4 06/01/19 24 Discontinu ed(*Medica tion adjustment ) Hospital, Clinic, or Other Facility Administered Medication Ordered Dose Route Frequency Start Date End Date Status cyanocobalamin (VITAMIN B12) 1,000 mcg/mL injection 1,000 mcgIndications:Vitami n B12 deficiency 1000 mcg IM Q 4 WEEKS (28 DAYS) 12/21/2020 Active Active Problems Problem Noted Date Diagnosed Date Dementia with behavioral disturbance 11/04/2022 Severe dementia without beha vioral disturbance, psychotic disturbance, mood disturbance, or anxiety, unspecified dementia type 04/28/2022 Severe dementia 12/13/2019 Overview: SLUMS 06 November 2019 DNR (do not resuscitate) 12/13/2019 Overview: Per conversation 12/13/19 HTN (hypertension) 12/09/2018 Hyperlipidemia, unspecified 12/09/2018 Nonrheumatic aortic valve stenosis 06/16/2018 Overview: Mild 11/2018, needs repeat q3-5 years if asymptomatic Esophageal reflux 12/01/2012 Overview: EGD 11/2012 reflux, Schatzki ring Osteoarthritis 10/06/2012 Overview: Uses a cane and needs handicapped certificate. Carlita Zavala M.D. 10/06/2012 11:51 AM Aortic stenosis, mild 09/12/2011 Overview: Noted on echocardiogram 2010. Stable 2012. Carlita Zavala M.D. 09/12/2011 10:27 PM Repeat 2017 stable, repeat in 3-5 years, sooner if symptoms. Mild 11/2018, needs repeat q3-5 years if asymptomatic Routine general medical exam ination at a health care facility 08/22/2008 Overview: dexa normal 2007 Ingrowing nail 04/13/2007 Plantar fascial fibromatosis 07/21/2006 Dermatophytosis of nail 07/21/2006 Unspecified essential hypertension 08/15/2005 Other and unspecified hyperlipidemia 08/01/2003 Resolved Problems Problem Noted Date Diagnosed Date Resolved Date MCI (mild cognitive impairment) 07/26/2018 12/13/2019 Dysphagia, unspecified(787.20) 09/04/2010 10/03/2014 Malignant neoplasm of corpus uteri, except isthmus 03/19/2005 12/18/2021 Overview: [id number],grade1,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 sp radical hysterectomy per Dr. Estella Nails. No adjuvant radiation therapy given low risk of recurrence, < 5%. Pap/pelvic q 3 months x 2 years, then q 6 months. Surgery March 2005 Ok to stop Pap smear and do exam. Would do more testing if symptoms. Carlita Zavala M.D. 10/03/2014 9:03 AM Encounters Date Type Department Care Team Description 06/08/2023 Orders Only [facility] Scanner 1 scan: (1-Ord) JUAN , HEAD/BRAIN WO CON, 06/08/2023 06/08/2023 Orders Only [facility] Scanner 1 scan: (1-Ord) JUAN, CHEST 2V, 06/08/2023 06/01/2023 Telephone [facility] [address] [place] [address] Nga Jade DO Medication Management 05/29/[address] [address] Nga Jade DO Follow Up 05/04/[address] [address] Nga Jade DO Refill Request (Olanzapine) 04/14/2023 Patient Outreach [facility] Care Management - Care Management Navigation/[employer] [address] [place] [address] [phone] Lulu Pleitez, [facility] Complex Care Management; Care Management Intake (Social work care management intake outreach./) 04/13/[address] [address] Nga Jade DO Medication Management 04/13/[address] [address] Nga Jade DO Follow Up 04/10/[address] [address] Nga Jade DO Referral (Home care vs. Hospice) 04/07/2023 3:35 PM [employer] Office Visit [address] [address] Nga Jade DO Medication Management 04/07/2023 Travel 04/07/[address] [address] Nga Jade DO Appointment Request (PATIENT NEEDS TO RESCHEDULE APPT.) 04/03/[address] [address] Nga Jade DO General Illness/Other 04/03/2023 Telephone [facility] [address] [facility] [place] [address] Nga Jade DO 03/30/2023 Telephone [facility] [address] [facility] [place] [address] Nga Jade DO Medication Management 03/30/2023 Telephone [facility] [address] [place] [address] Nga Jade DO CALL BACK 03/24/2023 10:00 AM [employer] Phone Office Visit [facility] [address] [place] [address] Nga Jade DO Medication Management (Spacer for inhaler) 03/24/2023 Travel 03/17/2023 E-Consult [facility] [address] [facility] [address] [facility] [address] [place] [address] Ferdinand Snell MD 03/17/2023 Telephone [facility] [address] [place] [address] Nga Jade DO New Med Request (Something to help Patient sleep) from Last 3 Months Immunizations Name Administration Dates Next Due AMB Influenza, IIV3 (Age >=3 years)(Flu Clinic Only) 12/04/2011,12/20/2010,01/01/2010 Amb Influenza, Inact (High-d ose) (Flu Clinic Only) 01/08/2016,01/11/2014 COVID-19 vaccine (Pfizer-Bio NTech 30mcg/0.3mL) 12YO+ BIVALENT PF, MDV 12/18/2021 COVID-19 vaccine (Pfizer-Bio NTech 30mcg/0.3mL) 12YO+ TANIA-SUCROSE PF, MDV 08/16/2021 COVID-19 vaccine (Pfizer-Bio NTech 30mcg/0.3mL) PF, MDV 12/17/2020,05/01/2020,04/10/2020 Influenza Virus, Unspecified 11/23/2018 Influenza, High-dose Inactivated 11/23/2018,12/08 Influenza, High-dose Quadriv alent Inactivated 11/29/2022 Influenza, IIV3 (Age >=3 years) 12/21/2012 Influenza, IIV4 10/16/2019 Influenza, Inactivated AIIV4 (Age 65+ Years) Preserv Free 12/18/2021,12/17/2020 Influenza, Inactivated IIV3 (Age 65+ Years) Preserv Free 11/10/2017,01/08/2017 Pneumococcal Poly,23-Valent (Pneumovax) 07/10/19 04 Pneumococcal conj 13-Valent (Prevnar 13) 015 Td (Age >=7 Years) 08/14/2004 Tdap 12/20/2013 Zoster (Shingrix-RZV, recombinant) 05/21/2019, Zoster (Zostavax-ZVL, live) 10/14/2011 Family History Medical History Relation Name Comments Cancer-breast Daughter 2007 Heart Disease Father Hypertension Mother Cancer Sister 1 renal cancer Other Sister 2 pulmonary fibro sis Relation Name Status Comments Daughter Father (Age 62) [place] Mother Sister 1 Sister 2 Social History Tobacco Use Types Packs/Day Years Used Date Smoking Tobacco: Never Passive Smoke Exposure: Never Smokeless Tobacco: Never Tobacco Cessation:Counseling Given: Yes Alcohol Use Standard Drinks/Week Comments No 0 (1 standard drink = 0.6 oz pur e alcohol) PHQ-2 Answer Date Recorded PHQ-2 TOTAL SCORE 0 12/18/2021 Social Connections Answer Date Recorded Frequency of Communication with Friends and Fami ly 0 04/07/2023 Financial Resource Strain Answer Date R ecorded Difficulty of Paying Living Expenses 3 04/07/2023 Difficulty of Paying Living Expenses Not on file 04/07/2023 Food Insecurity Answer Date Recorded Worried About Running Out of Food in the Last Ye ar 1 04/07/2023 Transportation Needs Answer Date Record ed Lack of Transportation (Medical) 1 04/07/2023 Housing Stability Answer Date Recorded Unable to Pay for Housing in the Last Year 1 04/07/2023 Sex and Gender Information Value Date Recorded Sex Assigned at Not on file Gender Identity Not on file Sexual Orientation Not on file Obstetrics History Para Term AB IAB SAB Ectopic Multiple Livin g Live Births 3 3 Date Outcome GA Total Labor Labor/2nd/3rd Weight Sex Delivery Anes PTL Jia A1 A5 Name Cl in 05/31 Para 11/25 Para 01/18 Para Last Filed Vital Signs Vital Sign Reading Time Taken Comments Blood Pressure 121/77 04/07/2023 3:50 PM [employer] Pulse 84 04/07/2023 3:50 PM [employer] Temperature 36.7 ??C (98 ??F) 2023 1:07 PM [employer] Respiratory Rate 18 12/22/2022 8:02 AM CDT Oxygen Saturation 96% 04/07/2023 3:50 PM [employer] Inhaled Oxygen Concentration - - Weight 68.9 kg (152 lb) 04/07/2023 3:50 PM [employer] Height 158.8 cm (5' 2.52) 03/11/2023 3:10 PM CS T Body Mass Index 27.34 03/11/2023 3:10 PM [employer] Plan of Treatment Health Maintenance Due Date Last Done Comments Medicare Wellness for age 65+ 12/19/2022, 12/17/2020, 12/09/2018, Additional history exists Influenza for age 65+ 11/08/2023 11/29/2022 , 12/18/2021, 12/17/2020, Additional history exists Tetanus booster 12/21/2023 12/20/2013, 08/14/2004 BMI (ht and wt on same day) for age 18+ 03/11/2024 03/11/2023, 01/27/2023, 12/11/2022, Additional history exists DEXA/DXA scan for age 65+ Completed 08/24/2007 Tdap Completed 12/20/2013 Pneumococcal series for age 65+ Completed 5, 07/10/2003 Zoster (shingles) series for age 50+ Completed 05/21/2019, 11/23/2018, 10/14/2011 COVID-19 vaccine series Completed 12/23/19, 12/18/2021, 08/16/2021, Additional history exists Procedures Procedure Name Priority Date/Time Associated Diagnosis Comments SCAN-CT INTERPRETATION 12:00 AM CDT SCAN-RADIOLOGY REPORT 06/08/2023 12:00 AM CDT BASIC METABOLIC PANEL Routine 04/07/2023 3:45 PM [employer] Severe dementia with agitation, unspecified dementia type (HC) XR DXA BONE DENSITY 2 SITES AXIAL Routine 08/24/2007 9:04 AM CDT Screening Osteoporosis from Last 3 Months or Most Recently Relevant to Health Maintenance Results * SCAN-RADIOLOGY REPORT (06/08/2023 12:00 AM CDT) Anatomical Region Laterality Modality Other Scanner OTHER * SCAN-CT INTERPRETATION (06/08/2023 12:00 AM CDT) Anatomical Region Laterality Modality Other Scanner OTHER * (ABNORMAL) BASIC METABOLIC PANEL (04/07/2023 3:45 PM [employer]) SODIUM 143 136 - 145 mmol/L 04/08/2023 10:33 AM [facility] POTASSIUM 3.7 3.5 - 5.1 mmol/L 04/08/2023 10:33 AM [facility] CHLORIDE 104 98 - 107 mmol/L 04/08/2023 10:33 AM [facility] CO2,TOTAL 30(H) 22 - 29 mmol/L 04/08/2023 10:33 AM [facility] ANION GAP 9 5 - 18 04/08/2023 10:33 AM [facility] GLUCOSE 102(H) 70 - 99 mg/dL 04/08/2023 10:33 AM [facility] CALCIUM 9.7 8.8 - 10.2 mg/dL 04/08/2023 10:33 AM [facility] BUN 10 8 - 23 mg/dL 04/08/2023 10:33 AM [facility] CREATININE 1.11(H) 0.50 - 0.90 mg/dL 04/08/2023 10:33 AM [facility] BUN/CREAT RATIO 9(L) 10 - 20 10:33 AM [facility] eGFR 49(L) >90 mL/min/1.7 3m2 04/08/2023 10:33 AM [employer] [facility] Comment:As of 2021, eG FR is calculated by the CKD-EPI creatinine equation without race adjustment. ??eGFR can be influenced by muscle mass, exercise, and diet. ??The reported eGFR is an estimation only and is only applicable if the renal function is stable. Blood BLOOD SPECIMEN / Unknown Venipuncture / Unknown 04/07/2023 3:45 PM [employer] 04/07/2023 3:45 PM [employer] Nga Jade DO [facility] [address] [place] [address], * XR DEXA BONE DENSITY 2 SITES (08/24/2007 9:04 AM CDT) Anatomical Region Laterality Modality Spine, HIPS, HIPL, HIPR Other 08/24/2007 9:04 AM CDT Narrative 08/27/2007 10:19 AM CDT Please see scanned document for results of this study. Procedure Note Melody Veliz - 08/27/2007 Please see scanned document for results of this study. Carlita Zavala DEXA from Last 3 Months or Most Recently Relevant to Health Maintenance Advance Directives Documents on File Type Date Recorded Patient Fashion Journalist Expl anation ALVARADO 12/17/2020 3:10 PM ALVARADO/ CARLOS MARTINEZ 12/17/2020 Power of Manual Tester 01/09/2016 2:16 PM LIMIT ED POWER OF RN DIABETES EDUCATOR TO ACCESS MEDICAL RECORDS, [facility], 11/20/15 Healthcare Directive 01/09/2016 2:14 PM [facility], 11/20/2015 Healthcare Directive 09/18/2010 Durable Power of Manual Tester for Health Care Signed by patient 05/19/96 Care Teams Paper Bag Machine Operator Relationship Specialty Start Date End Date Nga Jade DO [address] [place] [address] PCP - General Family Practice 10/08/15 Jeff Thompson [address] [place] [id number] Contact Worker 09/12/11
--- NOTE | 2023-06-14 14:11 | ED.GENADULT ---
HPI - General Adult General Chief complaint: Head Injury/Pain Stated complaint: Fall Time Seen by Provider: 06/14/23 13:28 Source: EMS Mode of arrival: EMS Limitations: altered mental status History of Present Illness HPI narrative: 83-year-old female, resident at [facility], presents via EMS after she was found down in her room. Fall was unwitnessed. Patient has blood present on the left side of the head. She is not complaining of any pain. Has obvious dementia. On a baby aspirin, no other blood thinners. Related Data Home Medications Medication Instructions Recorded Confirmed acetaminophen 500 mg tablet 500 mg PO DAILY PRN 09/03/21 06/09/22 (Acetaminophen Extra Strength) aspirin 81 mg capsule 81 mg PO DAILY 09/03/21 06/09/22 furosemide 20 mg tablet 20 mg PO DAILY 09/03/21 06/09/22 metoprolol succinate 100 mg 100 mg PO DAILY 09/03/21 06/09/22 tablet,extended release 24 hr pravastatin 20 mg tablet 20 mg PO DAILY 09/03/21 06/09/22 cyanocobalamin (vitamin B-12) 1,000 mcg IM Q4W 06/09/22 06/09/22 1,000 mcg/mL injection solution quetiapine 25 mg tablet 25 mg PO QPM 06/08/23 06/08/23 Previous Rx's Medication Instructions Recorded levofloxacin 250 mg tablet 250 mg PO Q24H #5 tabs 06/11/22 amoxicillin 500 mg capsule 1,000 mg (2 x 500 mg) PO BID 7 06/08/23 days #28 caps quetiapine 25 mg tablet (Seroquel) 25 mg PO DAILY PRN agitation #7 06/08/23 tabs quetiapine 25 mg tablet (Seroquel) See Rx Instructions .Route 06/08/23 .COMPLEX #21 tabs Allergies Allergy/AdvReac Type Severity Reaction Status Date / Time No Known Drug Allergies Allergy Verified 09/04/21 09:56 Review of Systems Status of ROS: Reports: unobtainable due to medical condition [facility] Medical History DNR (do not resuscitate) ?Z66 - Do not resuscitate (ICD-10) Osteoarthritis ?M19.90 - Unspecified osteoarthritis, unspecified site (ICD-10) Healthcare maintenance ?Z00.00 - Encounter for general adult medical examination without abnormal findings (ICD-10) Plantar fascial fibromatosis ?M72.2 - Plantar fascial fibromatosis (ICD-10) Severe dementia ?F03.90 - Unspecified dementia without behavioral disturbance (ICD-10) Esophageal reflux ?K21.9 - Gastro-esophageal reflux disease without esophagitis (ICD-10) Aortic stenosis, mild ?I35.0 - Nonrheumatic aortic (valve) stenosis (ICD-10) Hypertension ?I10 - Essential (primary) hypertension (ICD-10) Hyperlipidemia, unspecified ?E78.5 - Hyperlipidemia, unspecified (ICD-10) Malignant neoplasm of corpus uteri, unspecified ?C54.9 - Malignant neoplasm of corpus uteri, unspecified (ICD-10) Surgical History History of total abdominal hysterectomy (03/09/05) ?Z90.710 - Acquired absence of both cervix and uterus (ICD-10) History of esophagogastroduodenoscopy (11/30/12) ?Z98.890 - Other specified postprocedural states (ICD-10) S/P dilation and curettage (10/19/86) ?Z98.890 - Other specified postprocedural states (ICD-10) Family History Sister Renal cancer Pulmonary fibrosis Daughter Breast cancer Father Coronary artery disease Mother High blood pressure Social History Narrative: Lives with . He wants her to be DNR/DNI. He notes a discussion he had with Dr. Saravia back in 2020 as the reason for his decision on this. Highest level of school completed/degree received: high school graduate Smoking Status: Never smoker Do you use any of these nicotine containing products: None Second hand tobacco smoke exposure: No (SPOUSE QUIT) How often do you have a drink containing alcohol: never How often do you have six or more drinks on one occasion: Never AUDIT-C Alcohol total score: 0 Non-prescribed substance use: denies use service: No Exam Narrative: Exam Narrative: Well-nourished well-developed patient, cooperative however, sometimes gets angry that people are touching her. Patient speaks in full sentences without needing to catch her breath. HEENT: Normocephalic . Pupils are equally round reactive to light. Extraocular muscles are intact. Conjunctivae are moist without any icterus noted. Moist mucous membranes. Posterior pharynx is normal. Neck is soft. There is no trauma noted to the inside of the mouth. She has a very superficial laceration to the center occipital region, it has clotted and is no longer bleeding. The scalp is explored extensively, no other evidence of bleeding noted. Cardiovascular: Heart is regular rate and rhythm. Lungs: Clear to auscultation bilaterally. Abdomen: Soft and nontender nondistended with normal bowel sounds. Protuberant. Extremities: No abrasions or ecchymosis noted of the extremities. Skin: Well perfused without any obvious rashes. Back: Normal appearance. There is no bruising, abrasions noted. She has no tenderness with palpation of the cervical, thoracic or lumbar spine. Const: Vital Signs, click to edit/add: Vital Signs - 24 hr 06/14/23 13:23 Temperature 98.2 F Pulse Rate [Right Pulse Oximeter] 103 H Respiratory Rate 20 Blood Pressure [Ri ght Upper Arm] 110/88 Pulse Oximetry 93 Oxygen Delivery Me thod Room Air Course Course ED Course: The wound was cleaned and Dermabond was applied to the skin. Head and neck CT were ordered: Both unremarkable. Vital Signs Vital signs: Initial Vital Signs Temperature 98.2 F 06/14/23 13:23 Temperature Source Temporal Artery Scan 06/14/23 13:23 Pulse Rate 103 H 06/14/23 13:23 Respiratory Rate 20 06/14/23 13:23 Blood Pressure 110/88 06/14/23 13:23 Blood Pressure Mean 95 06/14/23 13:23 Blood Pressure Position Sitting 06/14/23 13:23 Pulse Oximetry 93 06/14/23 13:23 Oxygen Delivery Method Room Air 06/14/23 13:23 Vital Signs Temperature 98.2 F 06/14/23 13:23 Pulse Rate 103 H 06/14/23 13:23 Respiratory Rate 20 06/14/23 13:23 Blood Pressure 110/88 06/14/23 13:23 Pulse Oximetry 93 06/14/23 13:23 Oxygen Delivery Method Room Air 04/07/24 13:23 Temperature 98.2 F 06/14/23 13:23 Pulse Rate 103 H 06/14/23 13:23 Respiratory Rate 20 06/14/23 13:23 Blood Pressure 110/88 06/14/23 13:23 Pulse Oximetry 93 06/14/23 13:23 Oxygen Delivery Method Room Air 06/14/23 13:23 Medical Decision Making MDM Narrative Medical decision making narrative: Unwitnessed fall, laceration to the back of the head. Patient was monitored for approximately an hour and a half. Patient was getting agitated while being in the hospital so we did feel that was better for her mental health to be transfer back home. Imaging Data CT scan - head: Attestation: I have reviewed the pertinent imaging results. Radiologist's impression: CT of the head without contrast. Coronal and sagittal reformats are included. COMPARISON: Head CT from 06/08/2023. FINDINGS: No acute intracranial hemorrhage. No mass effect or midline shift. No hydrocephalus or extra-axial collections. Patchy white matter hypoattenuation, typical for chronic microvascular ischemic change. [id number] generalized parenchymal volume loss. No acute osseous abnormalities. A right-sided mastoid effusion, likely reactive/inflammatory. Left-sided mastoid air cells are clear. Normal soft tissues. IMPRESSION: IMPRESSION: 1. No acute intracranial abnormalities. CT cervical spine: Attestation: I have reviewed the pertinent imaging results. Radiologist's impression: CT of the cervical spine without contrast. Coronal and sagittal reformats are included. COMPARISON: None. FINDINGS: No acute fracture or traumatic malalignment of the cervical spine. Craniocervical junction alignment is maintained. Mild cervical kyphosis. Moderate to advanced disc degeneration C3-4 through C7-T1. Grade 1 degenerative anterolisthesis C2-3 and C3-4. Scattered uncovertebral/facet arthrosis without high-grade neural foraminal stenosis. No high grade spinal canal stenosis as far as visualized. Imaged intracranial structures, cervical and paraspinous soft tissues are normal in appearance. The visualized pulmonary apices are clear. IMPRESSION: 1. No acute fracture or traumatic malalignment of the cervical spine. Discharge Plan Discharge Clinical Impression: Laceration, Fall Patient Disposition: Home w/ Parent or Adult Condition: Stable Additional Instructions: Head and neck CT were unremarkable today. Patient does have Dermabond to the back of the head. Okay to shower like usual but do not soak the area. Monitor for signs of infection which include redness or purulent drainage from the laceration on the back of the head. Okay to return to normal activity. Prescriptions: No Action acetaminophen [Acetaminophen Extra Strength] 500 mg tablet 500 mg PO DAILY PRN aspirin 81 mg capsule 81 mg PO DAILY furosemide 20 mg tablet 20 mg PO DAILY metoprolol succinate 100 mg tablet extended release 24 hr 100 mg PO DAILY pravastatin 20 mg tablet 20 mg PO DAILY cyanocobalamin (vitamin B-12) 1,000 mcg/mL solution 1,000 mcg IM Q4W levofloxacin 250 mg tablet 250 mg PO Q24H Qty: 5 0RF quetiapine 25 mg tablet 25 mg PO QPM quetiapine [Seroquel] 25 mg tablet 25 mg PO DAILY PRN (Reason: agitation) Qty: 7 2RF amoxicillin 500 mg capsule 1,000 mg PO BID 7 Days Qty: 28 0RF quetiapine [Seroquel] 25 mg tablet See Rx Instructions .ROUTE .COMPLEX Qty: 21 0RF Rx Instructions: 25mg (one tablet) PO QAM and 50mg (two tablets) PO QHS Follow Up/Referrals: Nga Jade DO [Primary Care Provider] - Stand Alone [facility] Info Instructions
[2023-06-14 14:56] VITALS: BP 119/98; PULSE 100
== END 2023-06-14 15:08 | disposition home or self-care (01) ==
PROVIDERS: Emergency Provider Family Medicine; PCP Family Medicine
DX: S01.01XA Laceration without foreign body of scalp, initial encounter (principal); W01.10XA Fall on same level from slipping, tripping and stumbling with subsequent striking against unspecified object, initial encounter
CPT/HCPCS: 12001; 70450; 72125; 99283; 99284

== ENCOUNTER 2023-07-10 11:36 | Observation (INO) | payer MEDICARE, SELFPAY ==
[2023-07-10 11:45] VITALS: BP 134/93; PULSE 83; RESP 16; TEMP 35.8; O2SAT 97; BMI 26.0
--- NOTE | 2023-07-10 11:58 | ED.WEAKNESS ---
HPI - Weakness General Time Seen by Provider: 11:58 Date Seen: 07/10/23 Chief complaint: Weakness Stated complaint: weakness Time Seen by Provider: 07/10/23 11:39 Source: patient, EMS and RN notes reviewed Mode of arrival: EMS Limitations: altered mental status (Dementia) History of Present Illness HPI Narrative: This 83-year-old female was sent by ambulance for concern of increasing weakness in change in baseline status from her facility. She is in a memory care at [facility]. EMS report was that she was not acting normally this morning per staff, having increased lethargy. She is reported to have a history of dementia and hypertension. Patient is calling out, speech is succinct. She did engage in some conversation with me that was appropriate, other times definitely could tell that she was not tracking of the conversation. She denies any pain, was laying somewhat sideways in the bed, did assist her back to more of an appropriate position in the ED bed. At 12:03 p.m. did speak with Selena the RN for the facility. Patient is in a memory care but low acuity. She normally is independent with her walker. She was not walking this morning, seemed weak and would not open her eyes. Her blood pressure was low a couple times, Selena remembered it being 70/40 maybe 50 diastolic. She did speak with patient's , decision was made to transport. I did review papers that requested her to be DNR and comfort focus treatment. I did subsequently call her at 12:08 p.m.. Naty is about 3 hours away but is coming back. He states that he was concerned about her yesterday. She seemed more incoherent. He was noticing difficulty with her mobility yesterday. He had a very difficult time getting her to the bathroom. He states he is not surprised that there is further issues today and that she is here. We discussed her advanced directives. He would be agreeable 2 some basic workup with labs. Will get chest x-ray. If there is any further advanced imaging, will talk to him 1st. I will update him once we have some labs. Nursing staff did do the triple viral swab on arrival. Related Data Home Medications Medication Instructions Recorded Confirmed acetaminophen 500 mg tablet 500 mg PO DAILY PRN 09/03/21 06/09/22 (Acetaminophen Extra Strength) aspirin 81 mg capsule 81 mg PO DAILY 09/03/21 06/09/22 furosemide 20 mg tablet 20 mg PO DAILY 09/03/21 06/09/22 metoprolol succinate 100 mg 100 mg PO DAILY 09/03/21 06/09/22 tablet,extended release 24 hr pravastatin 20 mg tablet 20 mg PO DAILY 09/03/21 06/09/22 cyanocobalamin (vitamin B-12) 1,000 mcg IM Q4W 06/09/22 06/09/22 1,000 mcg/mL injection solution quetiapine 25 mg tablet 25 mg PO QPM 06/08/23 06/08/23 Previous Rx's Medication Instructions Recorded levofloxacin 250 mg tablet 250 mg PO Q24H #5 tabs 06/11/22 amoxicillin 500 mg capsule 1,000 mg (2 x 500 mg) PO BID 7 06/08/23 days #28 caps quetiapine 25 mg tablet (Seroquel) 25 mg PO DAILY PRN agitation #7 06/08/23 tabs quetiapine 25 mg tablet (Seroquel) See Rx Instructions .Route 06/08/23 .COMPLEX #21 tabs Allergies Allergy/AdvReac Type Severity Reaction Status Date / Time No Known Drug Allergies Allergy Verified 09/04/21 09:56 Review of Systems Status of ROS: Reports: unobtainable due to mental status (Dementia) PFSH PFS Medical History POLST (Physician Orders for Life-Sustaining Treatment) ?Z78.9 - Other specified health status (ICD-10) Health care directive on file ?Z78.9 - Other specified health status (ICD-10) DNR (do not resuscitate) ?Z66 - Do not resuscitate (ICD-10) Osteoarthritis ?M19.90 - Unspecified osteoarthritis, unspecified site (ICD-10) Healthcare maintenance ?Z00.00 - Encounter for general adult medical examination without abnormal findings (ICD-10) Plantar fascial fibromatosis ?M72.2 - Plantar fascial fibromatosis (ICD-10) Severe dementia ?F03.90 - Unspecified dementia without behavioral disturbance (ICD-10) Esophageal reflux ?K21.9 - Gastro-esophageal reflux disease without esophagitis (ICD-10) Aortic stenosis, mild ?I35.0 - Nonrheumatic aortic (valve) stenosis (ICD-10) Hypertension ?I10 - Essential (primary) hypertension (ICD-10) Hyperlipidemia, unspecified ?E78.5 - Hyperlipidemia, unspecified (ICD-10) Malignant neoplasm of corpus uteri, unspecified ?C54.9 - Malignant neoplasm of corpus uteri, unspecified (ICD-10) Surgical History History of total abdominal hysterectomy (03/09/05) ?Z90.710 - Acquired absence of both cervix and uterus (ICD-10) History of esophagogastroduodenoscopy (11/30/12) ?Z98.890 - Other specified postprocedural states (ICD-10) S/P dilation and curettage (10/19/86) ?Z98.890 - Other specified postprocedural states (ICD-10) Family History Sister Renal cancer Pulmonary fibrosis Daughter Breast cancer Father Coronary artery disease Mother High blood pressure Social History Narrative: Lives with . He wants her to be DNR/DNI. He notes a discussion he had with Dr. Saravia back in 2019 as the reason for his decision on this. Highest level of school completed/degree received: high school graduate Smoking Status: Never smoker Do you use any of these nicotine containing products: None Second hand tobacco smoke exposure: No (SPOUSE QUIT) How often do you have a drink containing alcohol: never How often do you have six or more drinks on one occasion: Never AUDIT-C Alcohol total score: 0 Non-prescribed substance use: denies use service: No Exam Const: Vital Signs, click to edit/add: Vital Signs - 24 hr 07/10/23 11:45 07/10/23 12:01 07/10/23 12:31 Temperature 96.5 F L Pulse Rate [Pulse Oximeter] 83 Respiratory Rate 16 Blood Pressure 120/67 129/79 Blood Pressure [Le ft Upper Arm] 134/93 H Pulse Oximetry 97 Oxygen Delivery Me thod Room Air Patient is vocalizing, speech is distinct. I do wonder if she is hallucinating at times, nursing staff did hear her talking about tractors and the people. She is certainly independently breathing, no concern for her airway or any acute circulatory issues at this time. Blood pressure is not low here. She is wearing glasses but keeps her eyes closed. I asked her to open her eyes and she tells me that they are open. I will not force them open as I do think this will agitated her. Face seems to be symmetrical in motor function as she is talking. Neck supple, no masses. CV regular rate and rhythm, do not appreciate murmur but she is talking through my exam. Lungs are clear to the best of my ability, not cooperative with deep breathing. Abdomen seems to be soft, nontender, do not feel any masses. She has compression stockings on. When ask her to move her hands an arm she does so. She will lift each leg off the bed, will wiggle her ankles. She tells me she is not taking her shoes off. Documenting provider has reviewed patient's vital signs: yes Course Course ED Course: Will do noninvasive testing with EKG, portable chest x-ray. Will do some screening laboratory testing as reviewed with her . We do have the triple viral swab pending. We likely need a urinalysis on this patient, did discuss with her it may have to be by catheterization. He was fine with that. Reevaluation(s) Time of Reevaluation #1: 13:09 Reevaluation #1: Patient screaming in pain, yelling take it off. I do believe that the blood pressure cuff when it is cycling is bothering her. We will try to keep her on pulse oximetry but diminish her blood pressure checks for comfort. We are going to need to do an in and out catheter to obtain urine. Will give her 25 mg oral Seroquel to help diminish her agitation. She does get p.r.n. Seroquel as well as a morning dose of Seroquel. Time of Reevaluation #2: 14:50 Reevaluation #2: Reviewed potassium is low at 3. Patient is on 20 mg of Lasix daily without any potassium supplementation. Will give her 25 mEq of effervescent potassium. This level of potassium should not cause as significant mental status changes. Time of Reevaluation #3: 15:35 Reevaluation #3: is here now, she does interact with him. She is still not opening her eyes. Reviewed with him that the labs done, portable chest x-ray, urinalysis are not supporting any infection. She has not had a [place]. She is showing no focal motor deficits suggestive of CVA. When we discussed CT imaging, he had not agreed to do this level of work-up. I do not think that she will be able to comply with this type of testing anyway, certainly not any MRI imaging. With her level of dementia, I do suspect that this could be progression of her disease. Her and I reviewed that eventually people with dementia can progress to not ambulating, not eating or drinking much. It is always possible that there is something developing that we just cannot find at this time. He understands. We will contact the [facility] to see if she can go back to current level of care or if she needs to go into the hospital for placement into higher care facility. Consultations Consultation #1: Have spoken with the hospitalist Dr. Davis. He will accept this patient if child welfare social worker is unable to get arrangements for her to go in to the retirement at [place]. They are currently seeing if this might be a possibility. 4:19 p.m.: Meme from child welfare social worker was unable to secure this patient a bed at [facility]. Time: 16:12 Vital Signs Vital signs: Initial Vital Signs Temperature 96.5 F L 07/10/23 11:45 Temperature Source Temporal Artery Scan 07/10/23 11:45 Pulse Rate 83 07/10/23 11:45 Respiratory Rate 16 07/10/23 11:45 Blood Pressure 134/93 H 07/10/23 11:45 Blood Pressure Mean 106 H 07/10/23 11:45 Blood Pressure Position Semi-Fowlers 07/10/23 11:45 Pulse Oximetry 97 07/10/23 11:45 Oxygen Delivery Method Room Air 07/10/23 11:45 Vital Signs Temperature 96.5 F L 07/10/23 11:45 Pulse Rate 83 07/10/23 11:45 Respiratory Rate 16 07/10/23 11:45 Blood Pressure 134/93 H 07/10/23 11:45 Pulse Oximetry 97 07/10/23 11:45 Oxygen Delivery Method Room Air 07/10/23 11:45 Temperature 96.5 F L 07/10/23 11:45 Pulse Rate 83 07/10/23 11:45 Respiratory Rate 16 07/10/23 11:45 Blood Pressure 129/79 07/10/23 12:31 Pulse Oximetry 97 07/10/23 11:45 Oxygen Delivery Method Room Air 07/10/23 11:45 Medications Administered Medications: Discontinued Medications Generic Name Dose Route Start Last Admin Trade Name Josef PRN Reason Stop Dose Admin Quetiapine Fumarate 25 mg 07/10/23 13:15 07/10/23 13:28 Quetiapine 25 Mg Tablet PO 07/10/23 13:16 25 mg ONCE ONE Administration MDM - Weakness Lab Data Attestation: I reviewed the patient's lab results. Labs: Lab Results 07/10/23 07/10/23 07/10/23 Range/Units 11:40 12:50 14:25 WBC 4.97 (4.50-11.00) K/uL RBC 4.47 (4.00-5.20) m/uL Hgb 13.3 (12.0-16.0) gm/dL Hct 40.7 (33.0-51.0) % MCV 91 (80-100) fL MCH 30 (26-34) pg MCHC 33 (32-36) gm/dL RDW Coeff of Russ 13.1 (11.5-15.5) % Plt Count 226 (140-440) K/uL Neut % (Auto) 64.6 (42.0-72.0) % Lymph % (Auto) 17.5 L (20-44) % Mitchell % (Auto) 8.2 (0.0-11.0) % Eos % (Auto) 8.9 H (0.0-7.0) % Baso % (Auto) 0.6 (0.0-3.0) % Neut # (Auto) 3.21 (1.7-7.0) K/uL Lymph # (Auto) 0.90 (0.90-2.90) K/uL Mitchell # (Auto) 0.40 (0.00-0.90) K/UL Eos # (Auto) 0.40 (0.00-0.50) K/uL Baso # (Auto) 0.03 (0.00-0.30) K/uL Abs Immat Gran (auto) 0.01 (0.00-0.30) K/uL Imm/Tot Granulo (auto) 0.2 % Sodium 142 (135-149) mmol/L Potassium 3.0 L (3.6-5.1) mmol/L Chloride 106 (96-114) mmol/L Carbon Dioxide 28 (20-32) mmol/L Anion Gap 8 (7-15) mEq/L BUN 15 (7-30) mg/dL Creatinine 1.0 (0.5-1.5) mg/dL Estimated Creat Clear 34.02 Estimated GFR 55 ml/min Glucose 87 (60-115) mg/dL Lactate 1.0 (0.5-1.9) mmol/L Calcium 9.1 (8.4-10.6) mg/dL Total Bilirubin 2.1 H (0.1-1.5) mg/dL AST 32 (12-35) U/L ALT 14 (4-35) U/L Alkaline Phosphatase 96 (40-150) U/L Troponin I < 0.01 L (0.01-0.04) ng/mL C-Reactive Protein 1.3 H (0.5-1.0) mg/dL NT-Pro-B Natriuret Pep 194 pg/mL Total Protein 6.8 (6.0-8.3) g/dL Albumin 3.9 (3.3-5.0) g/dL Procalcitonin 0.10 (<0.50) ng/mL Urine Color Yellow (Yellow) Urine Appearance Slightly Cloudy A (Clear) Urine pH 6.5 (5.0-8.5) Ur Specific [place] 1.020 (1.000-1.030) Urine Protein Negative (Negative) Urine Glucose (UA) Negative (Negative) Urine Ketones Negative (Negative) Urine Blood Negative (Negative) Urine Nitrite Negative (Negative) Urine Bilirubin Negative (Negative) Urine Urobilinogen 1.0 (0.2-1.0) Ur Leukocyte Esterase Negative (Negative) Urine RBC 0-2 (0-2) Urine WBC 0-2 (0-5) Ur Squamous Epith Cells Moderate A (None-Few) Urine Bacteria Many A (None) SARS-CoV-2 (PCR) Negative SARS-CoV-2 (Negative) Influenza Type A (PCR) Negative PCR FLU A (Negative) Influenza Type B (PCR) Negative PCR FLU B (Negative) RSV (PCR) Negative PCR RSV (Negative) Imaging Data Chest x-ray: Attestation: I have reviewed the pertinent imaging results. Radiologist's impression: Patient: DANIELA OLIVAREZ Facility:?[facility] Patient ID:?[id number] Site Patient ID:?[id number]. Site :?[id number] Study:?XRay-Chest 1V PORTABLE-07/10/2023 12:39:06 PM Ordering Physician:KATHRYN Final Report: INDICATION: Weakness. COMPARISON: 06/08/2023 TECHNIQUE: 1 view. FINDINGS: Lordotic position, rotated rightward. Medical Devices: None. Lung Volumes: Adequate inspiration. No significant atelectasis. Lungs: Clear lungs. Pleura and Pleural spaces: No significant pleural effusion. No pneumothorax. Mediastinum: Stable. Diffuse atherosclerotic mural calcification of the thoracic aorta. Tortuosity of the descending thoracic aorta is again noted, which is a common senescent finding Bony Thorax and Soft Tissues: No significant incidental findings. 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 Proximal left humeral diametaphyseal bone island. IMPRESSION: No acute findings. Dictated by Jeff Valdez MD @ 07/10/2023 12:48:43 PM (Electronic Signature) ECG Data Attestation: I personally reviewed and interpreted this ECG as follows: (Normal sinus rhythm with sinus arrhythmia, 88 beats per minute. No evidence of acute infarct or active ischemia.) ECG interpretation date: 07/10/23 ECG interpretation time: 15:43 Discharge Plan Discharge Clinical Impression: Weakness, Hypokalemia Dementia Qualifiers: Dementia type: unspecified type Dementia severity: severe Dementia behavioral or psychological symptom: with agitation Qualified Code(s): F03.C11 - Unspecified dementia, severe, with agitation Patient Disposition: Admitted As Observation
[2023-07-10 12:01] VITALS: BP 120/67
--- NOTE | 2023-07-10 12:11 | XR_ITS ---
Patient: DANIELA OLIVAREZ Facility:?[facility] RIS Patient ID:?[id number] Site Patient ID:?[id number]. Site :?[id number] Study:?XRay-Chest 1V PORTABLE-07/10/2023 12:39:06 PM Ordering Physician:KATHRYN Final Report: INDICATION: Weakness. COMPARISON: 06/08/2023 TECHNIQUE: 1 view. FINDINGS: Lordotic position, rotated rightward. Medical Devices: None. Lung Volumes: Adequate inspiration. No significant atelectasis. Lungs: Clear lungs. Pleura and Pleural spaces: No significant pleural effusion. No pneumothorax. Mediastinum: Stable. Diffuse atherosclerotic mural calcification of the thoracic aorta. Tortuosity of the descending thoracic aorta is again noted, which is a common senescent finding Bony Thorax and Soft Tissues: No significant incidental findings. 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 Proximal left humeral diametaphyseal bone island. IMPRESSION: No acute findings. Dictated by Jeff Valdez MD @ 07/10/2023 12:48:43 PM Signed by:?Jeff Valdez MD @07/10/2023 12:48:43 PM (Electronic Signature)
--- OUTSIDE RECORDS SUMMARY | 2023-07-10 12:22 | XMS_ITS | Clinical Summary ---
Author Name Unknown Organization [facility] Address [place], [place] [address] Care Team Providers Care Validation Leader Name Role Phone Jeff Thompson Lilibeth Unavailable Michel Cates MD Primary Care Provider [phone] Allergies No known active allergies Medications Medication [...] in liquid then take by mouth. Active inhalational spacing deviceIndications:C hronic [...] other day 108 Tablet 3 4 Active omeprazole 20 mg tabletIndications:C hronic cough Take 1 Tablet (20 mg) by mouth once daily before a meal. 90 Tablet 4 Active QUEtiapine (SEROQUEL) 25 mg tabletIndications:S evere dementia with agitation, unspecified dementia type (HC) 25mg in morning, 37.5mg (25mg plus 12.5mg) at 1pm and 50mg at bedtime. Okay for 12.5mg extra dose as needed once a day but only IF needed for significant agitation. 180 Tablet 3 4 Active LORazepam (ATIVAN) 1 mg tabletIndications:S evere dementia with agitation, unspecified dementia type (HC),Behavioral and psychological symptoms of dementia (HC) Take 1 Tablet (1 mg) by mouth at bedtime if needed for Anxiety. 7 Tablet 4 Active maltodextrin (FIBER POWDER ORAL) Take by mouth. 07/03/19 24 Discontinue d(Duplicate therapy (E-cancel not sent)) pravastatin (PRAVACHOL) 20 mg tabletIndications:H yperlipidemia, unspecified hyperlipidemia type Take 1 Tablet (20 mg) by mouth at bedtime. 90 Tablet 3 4 07/03/19 24 Discontinue d(*Med complete/Re gimen complete/Le cami of care change) budesonide-formoter oL (Symbicort) 160-4.5 mcg/actuation (160-4.5 mcg each actuation) inhalerIndications: Chronic cough Inhale 2 Puffs by mouth two times daily. 10.2 g 3 4 07/03/19 24 Discontinue d(*Patient states no longer taking) QUEtiapine (SEROQUEL) 25 mg tabletIndications:S evere dementia with agitation, unspecified dementia type (HC) Take 1 Tablet (25 mg) by mouth two times daily. 180 Tablet 3 4 06/24/19 24 Discontinue d(*Medicati on adjustment) oseltamivir (TAMIFLU) 75 mg capsuleIndications: Influenza 75mg x 1 then 30mg twice daily to complete total 5 days. See other Rx 1 Capsule 4 07/03/19 24 Discontinue d(*Med complete/Re gimen complete/[place] cami of care change) Oseltamivir Phosphate (Tamiflu) 30 mg capIndications:Infl uenza Take 1 Capsule (30 mg) by mouth two times daily for 5 days. Take 75mg x 1. Then start 30mg twice daily x 5 days total 9 Capsule 4 06/20/19 24 QUEtiapine (SEROQUEL) 25 mg tabletIndications:S evere dementia with agitation, unspecified dementia type (HC) 25mg in morning, 25mg at 1pm, 50mg at bedtime. Additional 12.5mg can be added daily x 1 NEEDED for significant agitation. 180 Tablet 3 4 06/24/19 24 Discontinue d(*Medicati on adjustment) LORazepam (ATIVAN) 0.5 mg tabIndications:Sam ntia with behavioral disturbance (HC) Take 1 Tablet (0.5 mg) by mouth every 6 hours if needed (Disruptive behaviors at night). 5 Tablet 4 07/07/19 24 Discontinue d(*Medicati on adjustment) Hospital, Clinic, or Other Facility Administered Medication Ordered Dose Route Frequency Start Date End Date Status cyanocobalamin (VITAMIN B12) 1,000 mcg/mL injection 1,000 mcgIndications:Vitami n B12 deficiency 1000 mcg IM Q 4 WEEKS (28 DAYS) 12/21/2020 Active Active Problems Problem Noted Date Diagnosed Date Dementia with behavioral disturbance 11/04/2022 Severe dementia 12/13/2019 Overview: SLUMS 06 November [...] Problem Noted Date Diagnosed Date Resolved Date Severe dementia without beha vioral disturbance, psychotic disturbance, mood disturbance, or anxiety, unspecified dementia type 04/28/2022 07/01/2023 MCI (mild cognitive impairment) 07/26/2018 12/13/2019 Dysphagia, unspecified(787.20) 09/04/2010 10/03/2014 Malignant neoplasm of corpus uteri, except isthmus 03/19/2005 12/18/2021 Overview: efbei6A,grade1,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 [...] Encounters Date Type Department Care Team Description 07/07/2023 Telephone [facility] [address] [place] [address] Michel Cates MD Medication Management 07/03/2023 Telephone [facility] [address] [place] [address] Michel Cates MD Form (PHYSICIAN ORDER) 07/02/2023 Refill [facility] [address] [place] [address] Michel Cates MD Refill Request (Lorazepam) 07/01/2023 1:00 PM CDT Office Visit [address] [address] Michel Cates MD Establish Care (senior care) 06/30/[address] [address] Michel Cates MD Medication List Update (Visit on 07/01/23 at [facility]) 06/26/2023 Telephone [facility] [address] [place] [address] Nga Jade DO Medication Management (Clarification on QUEtiapine (SEROQUEL) 25 mg tablet) 06/24/2023 10:00 AM CDT Phone Office Visit [facility] [address] [place] [address] Nga Jade DO Medication Management 06/24/2023 Orders Only [facility] Scanner 1 scan: (1-Ord) INCOMING RECORDS-LABS, [facility], 06/24/2023 06/24/2023 Orders Only [facility] Scanner 1 scan: (1-Ord) INCOMING RECORDS-LABS, [facility], 06/24/2023 06/24/2023 Travel 06/15/2023 Telephone [facility] [address] [place] [address] Nga Jade DO Follow Up 06/14/2023 Orders Only [facility] Scanner 1 scan: (1-Ord) [facility], CT CERVICAL SPINE W/O CON, 06/14/2023 06/14/2023 Orders Only [facility] Scanner 1 scan: (1-Ord) [facility], CT HEAD/BRAIN, 06/14/2023 06/08/2023 Orders Only [facility] Scanner 1 scan: (1-Ord) [place] , HEAD/BRAIN WO CON, 06/08/2023 06/08/2023 Orders Only [facility] Scanner 1 scan: (1-Ord) [place], CHEST 2V, 06/08/2023 06/01/2023 Telephone [facility] [address] [place] [address] Nga Jade, Medication Management 05/29/2023 Telephone [facility] [address] [place] [address] Nga Jade DO Follow Up 05/04/2023 Refill [facility] [address] [place] [address] Nga Jade DO Refill Request (Olanzapine) 04/14/2023 Patient Outreach [facility] Care Management - Care Management Navigation/[facility] [address] [place] [id number] [facility] Pleitez, [facility] Complex Care Management; Care Management Intake (Social work care management intake outreach./) 04/13/2023 Telephone [facility] [address] [place] [address] Nga Jade DO Medication Management 04/13/2023 Telephone [facility] [address] [place] [address] Nga Jade, Follow Up from Last 3 Months Immunizations Name Administration Dates Next Due AMB Influenza, IIV3 (Age >=3 years)(Flu Clinic Only) 12/04/2011,12/20/2010,01/01/2010 Amb Influenza, Inact (High-d ose) (Flu Clinic Only) 01/08/2016,01/11/2014 COVID-19 vaccine ([employer] NTech 30mcg/0.3mL) 12YO+ BIVALENT PF, MDV 12/18/2021 COVID-19 vaccine ([employer] NTech 30mcg/0.3mL) 12YO+ TANIA-SUCROSE PF, MDV 08/16/2021 COVID-19 vaccine ([employer]ve[employer] NTech 30mcg/0.3mL) PF, MDV 12/17/2020,05/01/2020,04/10/2020 Influenza Virus, [...] Name Status Comments Daughter Father (Age 62) [place] Mother Sister 1 Sister 2 Social History [...] Information Value Date Recorded Sex Assigned at Female 07/08/2023 4:39 PM CDT Gender Identity Female 07/08/2023 4:39 PM CDT Sexual Orientation Choose not to disclose 2023 4:39 PM CDT Obstetrics History Para Term AB IAB SAB Ectopic Multiple Livin g Live Births 3 3 Date Outcome GA Total Labor Labor/2nd/3rd Weight Sex Delivery Anes PTL Jia A1 A5 Name Cl in 05/31 Para 11/25 Para 01/18 Para Last Filed Vital Signs Vital Sign Reading Time Taken Comments Blood Pressure 173/66 07/01/2023 7:46 AM CDT Pulse 81 07/01/2023 7:46 AM CDT Temperature 36.7 ??C (98 ??F) 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 Respiratory Rate 18 12/22/2022 8:02 AM CDT Oxygen Saturation 96% 04/07/2023 3:50 PM WOOD GRINDER OPERATOR Inhaled Oxygen Concentration - - Weight 64.9 kg (143 lb) 07/01/2023 7:46 AM CDT Height 158.8 cm (5' 2.52) 03/11/2023 3:10 PM CS T Body Mass Index 25.72 03/11/2023 3:10 PM WOOD GRINDER OPERATOR Plan of Treatment Health Maintenance Due Date [...] 05/21/2019, 11/23/2018, 10/14/2011 COVID-19 vaccine series Completed 12/23/19 23, 12/18/2021, 08/16/2021, Additional history exists Procedures Procedure Name Priority Date/Time Associated Diagnosis Comments SCAN CORRESP-LABORATORY RESULTS 06/24/2023 12:00 AM CDT SCAN CORRESP-LABORATORY RESULTS 06/24/2023 12:00 AM CDT SCAN-RADIOLOGY REPORT 06/14/2023 12:00 AM CDT SCAN-CT INTERPRETATION 12:00 AM CDT SCAN-CT INTERPRETATION 12:00 AM CDT SCAN-RADIOLOGY REPORT 06/08/2023 12:00 AM CDT XR DXA BONE DENSITY 2 SITES AXIAL Routine 08/24/2007 9:04 AM CDT Screening Osteoporosis from Last 3 Months or Most Recently Relevant to Health Maintenance Results * SCAN CORRESP-LABORATORY RESULTS (06/24/2023 12:00 AM CDT) Only the most recent of2 resultswithin the time period is included. Scanner OTHER * SCAN-RADIOLOGY REPORT (06/14/2023 12:00 AM CDT) Only the most recent of2 resultswithin the time period is included. Anatomical Region Laterality Modality Other Scanner OTHER * SCAN-CT INTERPRETATION (06/14/2023 12:00 AM CDT) Only the most recent of2 resultswithin the time period is included. Anatomical Region Laterality Modality Other Scanner OTHER * XR DEXA BONE DENSITY 2 SITES (08/24/2007 9:04 AM CDT) Anatomical Region Laterality Modality Spine, HIPS, HIPL, HIPR Other 08/24/2007 9:04 AM CDT Narrative 08/27/2007 10:19 AM CDT Please see scanned document for results of this study. Procedure Note Melody Veliz D - 08/27/2007 Please see scanned document for results of this study. 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 POLST 07/03/2023 POLST 12/17/2020 3:10 PM POLST/ CARLOS MARTINEZ, 12/17/2020 Power of Inspector [employer] 01/09/2016 2:16 PM LIMIT ED POWER OF CINDER CRANE OPERATOR TO ACCESS MEDICAL RECORDS, CARLOS MARTINEZ, 11/20/15 Healthcare Directive 01/09/2016 2:14 PM CARLOS MARTINEZ, 11/20/2015 Healthcare Directive 09/18/2010 Durable Power of Inspector [employer] for Health Care Signed by patient 05/19/96 Care Teams Validation Leader Relationship Specialty [place] [id number] [place] [address] PCP - General Family Practice 07/07/23 Jeff Thompson [address] [place] [address] Access Services Representative 09/12/11
[2023-07-10 12:31] VITALS: BP 129/79
[2023-07-10 12:58] LABS: PCR FLU A Negative PCR FLU A (Negative); PCR FLU B Negative PCR FLU B (Negative); PCR RSV Negative PCR RSV (Negative); SARS PCR* Negative SARS-CoV-2 (Negative)
[2023-07-10 13:03] LABS: Basophils Absolute Auto 0.03 K/uL (0.00-0.30); Basophils Percent Auto 0.6 % (0.0-3.0); Eosinophils Percent Auto 8.9 % (0.0-7.0); Hematocrit 40.7 % (33.0-51.0); Hemoglobin* 13.3 gm/dL (12.0-16.0); Immature Granulocytes Abs Auto 0.01 K/uL (0.00-0.30); Immature Granulocytes Pct Auto 0.2 %; Lymphocytes Percent Auto 17.5 % (20-44); Mean Corpuscular HGB Conc 33 gm/dL (32-36); Mean Corpuscular Hemoglobin 30 pg (26-34); Mean Corpuscular Volume 91 fL (80-100); Monocytes Percent Auto 8.2 % (0.0-11.0); Neutrophils Absolute Auto 3.21 K/uL (1.7-7.0); Neutrophils Percent Auto 64.6 % (42.0-72.0); Platelet Count* 226 K/uL (140-440); RDW Coefficient of Variation % 13.1 % (11.5-15.5); Red Blood Count 4.47 m/uL (4.00-5.20); White Blood Count* 4.97 K/uL (4.50-11.00)
[2023-07-10 13:07] LABS: Slide Review Reflex No
[2023-07-10 13:23] LABS: Albumin* 3.9 g/dL (3.3-5.0); Chloride* 106 mmol/L (96-114); Sodium* 142 mmol/L (135-149)
[2023-07-10 13:25] LABS: Est. Creatinine Clearance* 34.02; Estimated Glomerular Filt Rate 55 ml/min
[2023-07-10 13:26] LABS: Alanine Aminotransferase* 14 U/L (4-35); Alkaline Phosphatase* 96 U/L (40-150); Anion Gap 8 mEq/L (7-15); Aspartate Amino Transferase* 32 U/L (12-35); Bilirubin Total* 2.1 mg/dL (0.1-1.5); Blood Urea Nitrogen* 15 mg/dL (7-30); Carbon Dioxide* 28 mmol/L (20-32); Glucose* 87 mg/dL (60-115); Total Protein* 6.8 g/dL (6.0-8.3)
[2023-07-10 13:27] LABS: Calcium* 9.1 mg/dL (8.4-10.6)
[2023-07-10] MEDS: QUETIAPINE 25 MG TABLET PO (13:28)
[2023-07-10 13:29] LABS: C Reactive Protein* 1.3 mg/dL (0.5-1.0)
[2023-07-10 13:39] LABS: NT Pro B Type NatriureticPept* 194 pg/mL
[2023-07-10 13:40] LABS: Troponin I* < 0.01 ng/mL (0.01-0.04)
[2023-07-10 14:41] LABS: Appearance Urine Slightly Cloudy (Clear); Bilirubin Urine Negative (Negative); Blood Urine Negative (Negative); Color Urine Yellow (Yellow); Glucose Urine Negative (Negative); Ketones Urine Negative (Negative); Leukocyte Esterase Urine Negative (Negative); Nitrite Urine Negative (Negative); Protein Urine Negative (Negative); pH Urine 6.5 (5.0-8.5)
[2023-07-10 14:57] LABS: Bacteria Urine Many; RBC Urine 0-2 (0-2); Squamous Epithelial Cell Urine Moderate (None-Few); WBC Urine 0-2 (0-5)
--- NOTE | 2023-07-10 16:24 | PC.SOCIAL ---
Discharge planning: Called [facility] where pt lives [phone] and spoke with nurse, Selena. Selena states pt can not return to the memory care as she is now requiring more assistance than what they can provide. Selena claims that pt was walking independently with a walker until this morning when she was sent to the Emergency Room. Selena confirmed there has been no discussion with family about the plan for what to do when the patient needed increased care. Selena states she will call pt's family and explained to them that they can not accept her back. Called [facility] half-way and left message requesting call back regarding bed availability. Most likely, [facility] admission staff will not retrieve the message until Thursday as it is late in the day today. Social work to follow up on Thursday.
[2023-07-10 17:49] VITALS: PULSE 75; RESP 18; O2SAT 96
--- NOTE | 2023-07-10 17:50 | PM.IMPN1 ---
Subjective Date Seen: 07/10/23 Exam Const: Vital Signs, click to edit/add: Vital Signs - 24 hr 07/10/23 11:45 07/10/23 12:01 07/10/23 12:31 Temperature 96.5 F L Pulse Rate [Pulse Oximeter] 83 Respiratory Rate 16 Blood Pressure 120/67 129/79 Blood Pressure [Le ft Upper Arm] 134/93 H Pulse Oximetry 97 Oxygen Delivery Me thod Room Air Labs Labs: Laboratory Results - last 24 hr 07/10/23 07/10/23 07/10/23 11:40 12:50 14:25 WBC 4.97 RBC 4.47 Hgb 13.3 Hct 40.7 MCV 91 MCH 30 MCHC 33 RDW Coeff of Russ 13.1 Plt Count 226 Neut % (Auto) 64.6 Lymph % (Auto) 17.5 L [place] % (Auto) 8.2 Eos % (Auto) 8.9 H Baso % (Auto) 0.6 Neut # (Auto) 3.21 Lymph # (Auto) 0.90 [place] # (Auto) 0.40 Eos # (Auto) 0.40 Baso # (Auto) 0.03 Abs Immat Gran (auto) 0.01 Imm/Tot Granulo (auto) 0.2 Sodium 142 Potassium 3.0 L Chloride 106 Carbon Dioxide 28 Anion Gap 8 BUN 15 Creatinine 1.0 Estimated Creat Clear 34.02 Estimated GFR 55 Glucose 87 Lactate 1.0 Calcium 9.1 Total Bilirubin 2.1 H AST 32 ALT 14 Alkaline Phosphatase 96 Troponin I < 0.01 L C-Reactive Protein 1.3 H NT-Pro-B Natriuret Pep 194 Total Protein 6.8 Albumin 3.9 Procalcitonin 0.10 Urine Color Yellow Urine Appearance Slightly Cloudy A Urine pH 6.5 Ur Specific [place] 1.020 Urine Protein Negative Urine Glucose (UA) Negative Urine Ketones Negative Urine Blood Negative Urine Nitrite Negative Urine Bilirubin Negative Urine Urobilinogen 1.0 Ur Leukocyte Esterase Negative Urine RBC 0-2 Urine WBC 0-2 Ur Squamous Epith Cells Moderate A Urine Bacteria Many A SARS-CoV-2 (PCR) Negative SARS-CoV-2 Influenza Type A (PCR) Negative PCR FLU A Influenza Type B (PCR) Negative PCR FLU B RSV (PCR) Negative PCR RSV
--- NOTE | 2023-07-10 17:52 | P.IMHP_ITS ---
Hospitalist- H&P: ANSHU History of Present Illness Date Seen: 07/10/23 Chief complaint: weakness Narrative: Raphael Cain is a 83 year old woman presents to the [facility] Emergency Department for assessment via EMS today for assessment and support for increased weakness. She lives in an independent memory care Assisted Living Center, [facility]. She has lived there for about 3 months, and previously was living with her in their 2-story home. He was no longer able to care for her safely due to her progressive cognitive and physical decline in association with her progressive dementia, seemingly of the Alzheimer's type. Since moving to [facility] she has continued to decline physically and cognitively. She has moments of calm and moments of agitation. When agitated or anxious, she hollers out and is not easily calmed or redirected. , James thompson (Chari), indicates he can hardly communicate with her any longer. Sometimes when she is agitated he is able to calm her down by talking with her, and other times he is not. She is having increased difficulty expressing her wants and needs. She has been requiring more support than [facility] is able to provide her in her current living setting. has not been satisfied with the level of support they have provided her and would like more support for her than they are currently providing. He is actively searching for a different living setting to provide her with the level of care and support that she needs. Staff from [facility] note that she seems weaker and more tired. She was not interested in getting out of bed today. Had little to eat today. Has had no specific complaints, including no pain. Also has had not diarrhea, constipation, dysuria or hematuria. Does seem to urinate frequently, especially after taking her morning furosemide. Has had no fevers. Her SBP at [facility] this morning was a s low as 70 mmHg. She does take metoprolol succinate 100 mg daily and furosemide 20 mg daily. In the hospital she is yelling out that she needs to get up to go to the bathroom. She is unable to process that the staff are here to help her achieve this. It takes 2 nurses to work with her to help her safely use a bedside commode and urinate. Post void bladder scanner demonstrates a residual bladder volume of 875 ml of urine. Urinalysis remarkable for being unremarkable. makes it very clear that his focus is on keeping her comfortable and not to prolong life. He agrees only to some blood work, urinalysis, and CXR. Only remakable finding is the potassium value of 3.0 and T. Bilirubin of 2.0, with Direct Bili still pending. Hospital forensic social worker attempted to find fdc availability while she was still in the ED but found none. Hence she is admitted to observation, ongoing cares, and attempt for placement in NH starting Thursday with NH staff are able to consider admission - they do not accept new admissions on weekends. Review of Systems Status of ROS: Reports: 6 or more systems reviewed and unremarkable except as noted in History and below Narrative: Patient not able to provide much information when agitated and hollering out. Seemingly she has no complaints except that she has to go to the bathroom. After nursing staff helped her transfer to the bedside commode, she urinated, was transferred back to her bed, and was totally calm. Denies concerns. [facility] Medical History (Updated 07/10/23 @ 18:38 by Tommy Davis MD) Severe dementia ?F03.90 - Unspecified dementia without behavioral disturbance (ICD-10) POLST (Physician Orders for Life-Sustaining Treatment) ?Z78.9 - Other specified health status (ICD-10) Health care directive on file ?Z78.9 - Other specified health status (ICD-10) DNR (do not resuscitate) ?Z66 - Do not resuscitate (ICD-10) Osteoarthritis ?M19.90 - Unspecified osteoarthritis, unspecified site (ICD-10) Healthcare maintenance ?Z00.00 - Encounter for general adult medical examination without abnormal findings (ICD-10) Plantar fascial fibromatosis ?M72.2 - Plantar fascial fibromatosis (ICD-10) Esophageal reflux ?K21.9 - Gastro-esophageal reflux disease without esophagitis (ICD-10) Aortic stenosis, mild ?I35.0 - Nonrheumatic aortic (valve) stenosis (ICD-10) Hypertension ?I10 - Essential (primary) hypertension (ICD-10) Hyperlipidemia, unspecified ?E78.5 - Hyperlipidemia, unspecified (ICD-10) Malignant neoplasm of corpus uteri, unspecified ?C54.9 - Malignant neoplasm of corpus uteri, unspecified (ICD-10) Surgical History History of total abdominal hysterectomy (03/09/05) ?Z90.710 - Acquired absence of both cervix and uterus (ICD-10) History of esophagogastroduodenoscopy (11/30/12) ?Z98.890 - Other specified postprocedural states (ICD-10) S/P dilation and curettage (10/19/86) ?Z98.890 - Other specified postprocedural states (ICD-10) Family History Sister Renal cancer Pulmonary fibrosis Daughter Breast cancer Father Coronary artery disease Mother High blood pressure Social History Narrative: Lives with . He wants her to be DNR/DNI. He notes a discussion he had with Dr. Saravia back in 2019 as the reason for his decision on this. Highest level of school completed/degree received: high school graduate Smoking Status: Never smoker Do you use any of these nicotine containing products: None Second hand tobacco smoke exposure: No (SPOUSE QUIT) How often do you have a drink containing alcohol: never How often do you have six or more drinks on one occasion: Never AUDIT-C Alcohol total score: 0 Non-prescribed substance use: denies use service: No Meds Home Medications and Allergies Home Medications Medication Instructions Recorded Confirmed Type acetaminophen 500 mg tablet 500 mg PO DAILY PRN 09/03/21 06/09/22 History (Acetaminophen Extra Strength) aspirin 81 mg capsule 81 mg PO DAILY 09/03/21 07/10/23 History furosemide 20 mg tablet 20 mg PO DAILY 09/03/21 07/10/23 History metoprolol succinate 100 mg 100 mg PO DAILY 09/03/21 06/09/22 History tablet,extended release 24 hr pravastatin 20 mg tablet 20 mg PO DAILY 09/03/21 07/10/23 History cyanocobalamin (vitamin B-12) 1,000 mcg IM Q4W 06/09/22 07/10/23 History 1,000 mcg/mL injection solution quetiapine 25 mg tablet 25 mg PO QPM 06/08/23 07/10/23 History Allergies Allergy/AdvReac Type Severity Reaction Status Date / Time No Known Drug Allergies Allergy Verified 09/04/21 09:56 Exam Narrative: Exam Narrative: I examine her in her hospital room. Initially she is agitated and not consolable. After nursing staff help her urinate in bedside commode, she is calm, but till confused - states this is her baseline, going from one extreme to the other very quickly at times. Oriented to self only, not place, time, or situation. Seemingly recognizes , but not able to say his name. Often speaks as if praying out loud, having a conversation with Lord - sates she has been this way for a long time. Sometimes he thinks she is actually speaking with him, but other times he can discern that she is praying vocally out loud. No obvious focal motor deficits. With help form 2 nurses, she is able to transfer from supine to sitting and sitting to standing, and then pivot transfer to bedside commode. Does not recognize that others are trying to assist her, or accept the direction and support they offer at times. Does respond in great measure to her 's calm, soothing voice, even amid her hollering. Lungs clear. Heart tones with regular rhythm. Abdomen remarkable for suprapubic distention, with only minimal discomfort to palpation. No rebound or guarding. Extremities with compression stockings and no edema. Skin is intact, without rashes, petechiae, ulcers, or cyanosis. Const: Vital Signs, click to edit/add: Vital Signs - 24 hr 07/10/23 11:45 07/10/23 12:01 07/10/23 12:31 Temperature 96.5 F L Pulse Rate [Pulse Oximeter] 83 Respiratory Rate 16 Blood Pressure 120/67 129/79 Blood Pressure [Le ft Upper Arm] 134/93 H Pulse Oximetry 97 Oxygen Delivery Me thod Room Air Hospitalist - H&P: Result Labs Labs: Short CBC 07/10/23 Range/Units 12:50 WBC 4.97 (4.50-11.00) K/uL Hgb 13.3 (12.0-16.0) gm/dL Hct 40.7 (33.0-51.0) % Plt Count 226 (140-440) K/uL BMP 07/10/23 12:50 Sodium 142 Potassium 3.0 L Chloride 106 Carbon Dioxide 28 BUN 15 Creatinine 1.0 Glucose 87 Calcium 9.1 Cardiac Enzymes 07/10/23 Range/Units 12:50 Troponin I < 0.01 L (0.01-0.04) ng/mL Liver Function 07/10/23 Range/Units 12:50 Total Bilirubin 2.1 H (0.1-1.5) mg/dL AST 32 (12-35) U/L ALT 14 (4-35) U/L Alkaline Phosphatase 96 (40-150) U/L Albumin 3.9 (3.3-5.0) g/dL Urine 07/10/23 Range/Units 14:25 Urine Color Yellow (Yellow) Urine Appearance Slightly Cloudy A (Clear) Urine pH 6.5 (5.0-8.5) Ur Specific [place] 1.020 (1.000-1.030) Urine Protein Negative (Negative) Urine Glucose (UA) Negative (Negative) ECG Attestation: I personally reviewed and interpreted this ECG as follows: ECG interpretation date: 07/10/23 Interpretation: NSR with non specific ST segment changes. Imaging Chest x-ray: Attestation: I have reviewed the pertinent imaging results. Radiologist's impression: No acute findings. Assessment and Plan Assessment and plan (1) Alzheimer's dementia with behavioral disturbance: Problem comment: - progressive - No longer able to safely live in current memory care setting at [facility] Status: Acute (2) Hypokalemia: Problem comment: - Likely due to daily furosemide use without potassium supplementation Status: Acute (3) Weakness: Problem comment: - multifactorial Status: Acute (4) Urinary retention with incomplete bladder emptying: Problem comment: - 875 ml post void residual - much more comfortable after she voided, even with the post-void residual of 875 ml - agreeable to attempt catheter placement, but we will hold off for now given that his goal of care is comfort focused and she is more comfortable post voiding - will stop furosemide for now - explained to that this could potentially be affecting her behaviors, but for now will monitor and consider placing urinary catheter in the future Status: Acute (5) Severe dementia: Problem comment: - SLUMS 06 November 2019 Status: Acute (6) Hypotension: Problem comment: - will decrease metoprolol succinate dose from 100 mg once daily to 25 mg once daily and monitor Status: Acute Plan 1. discussed with , answered his questions, he is agreeable to admission to observation while we continue with our assessment and consider safe discharge planning options - unable to place in NH on a Thursday night and will attempt again this coming Thursday. 2. OT and PT assessment and treatment. 3. security services specialist consultation. 4. Will decrease metoprolol succinate dose to 25 mg once daily due to reported hypotension earlier today after she had her morning metoprolol succinate 100 mg dose. Total Time Spent Total Time Spent: 60 minutes
[2023-07-10] MEDS: POTASSIUM CHLORIDE 10 MEQ CAPSULE ER 40 MEQ PO (18:06)
--- NOTE | 2023-07-10 18:44 | PC.NURSE ---
The patient arrived to the unit around 1700.... yelling out and restless on the stretcher. Not producing sentences that mad any sense... seemed like she was hallucinating at times. The patient would not open her eyes through the initial assessment. was at the bedside and him talking to her helped to somewhat calm her down. Severe bladder distention was noted.. a post void bladder scan was completed for 896cc. Per Dr Roman the made it clear the goal is comfort for her... for now we will hold off on the catheter. The patient is now more relaxed that she is settled in bed. Did need an aide to help feed her due to her keeping her eyes closed. Used the bedside commode to void.. needed 3 people due to redirection need.. recommend the bed arora. brief is on. PO potassium was given in chocolate pudding... she tolerated this well. Did not tolerate BP cuff.. tore it off. Bed alarm on and call light within reach. IV in R AC wrapped in coban. Selena LIN from [facility] called for an update... 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 JULIET and daughter Vinita are involved. Lizeth LIN BSN
[2023-07-10 18:52] LABS: Bilirubin Direct* 0.4 mg/dL (0.0-0.5)
[2023-07-10 19:00] VITALS: BP 131/72; PULSE 91; RESP 18; TEMP 36.3; O2SAT 93
[2023-07-10] MEDS: QUETIAPINE 25 MG TABLET 50 MG PO (20:40)
[2023-07-10] MEDS: SODIUM CHLORIDE 0.9 % (FLUSH) 10 ML SYRINGE 5 ML IVF (20:42)
[2023-07-10 22:04] VITALS: BP 109/63; PULSE 82; RESP 18; TEMP 36.1; O2SAT 93
[2023-07-11] VITALS (7 sets, daily range): BP systolic 91–115; BP diastolic 54–77; PULSE 79–101; RESP 16–20; TEMP 36–36.5; O2SAT 92–97
[2023-07-11] MEDS: OMEPRAZOLE 20 MG CAPSULE DR PO (06:47)
--- NOTE | 2023-07-11 07:25 | PC.NURSE ---
Addendum entered by Ellie Estes RN 07/12/23 04:15: Correction to note: Delete Post void residual 150mL. Add Bladder scanner showed 150mL urine. Original Note: Patient pleasant and cooperative with cares. Did very well with stand, pivot transfer to bedside commode at HS. 750mL urine output and incontinent brief was wet at that time. Post void residual 150mL. Patient had a small void in brief at this time; she has otherwise?been dry. Pt was offered to get up at 0230 to use the commode but reported she did not have to go. No complaints of discomfort.?
[2023-07-11 08:05] LABS: Basophils Percent Auto 0.7 % (0.0-3.0); Eosinophils Percent Auto 9.4 % (0.0-7.0); Hematocrit 41.1 % (33.0-51.0); Hemoglobin* 13.3 gm/dL (12.0-16.0); Lymphocytes Percent Auto 15.2 % (20-44); Mean Corpuscular HGB Conc 32 gm/dL (32-36); Mean Corpuscular Hemoglobin 30 pg (26-34); Mean Corpuscular Volume 92 fL (80-100); Monocytes Percent Auto 8.1 % (0.0-11.0); Neutrophils Percent Auto 66.6 % (42.0-72.0); Platelet Count* 216 K/uL (140-440); RDW Coefficient of Variation % 13.3 % (11.5-15.5); Red Blood Count 4.47 m/uL (4.00-5.20); White Blood Count* 4.47 K/uL (4.50-11.00)
[2023-07-11 08:07] LABS: Slide Review Reflex No
[2023-07-11 08:18] LABS: Chloride* 110 mmol/L (96-114); Potassium* 3.5 mmol/L (3.6-5.1); Sodium* 144 mmol/L (135-149)
[2023-07-11 08:21] LABS: Creatinine* 1.1 mg/dL (0.5-1.5); Est. Creatinine Clearance* 30.93; Estimated Glomerular Filt Rate 49 ml/min
[2023-07-11 08:22] LABS: Anion Gap 4 mEq/L (7-15); Blood Urea Nitrogen* 14 mg/dL (7-30); Calcium* 9.1 mg/dL (8.4-10.6); Carbon Dioxide* 30 mmol/L (20-32); Glucose* 98 mg/dL (60-115)
[2023-07-11] MEDS: QUETIAPINE 25 MG TABLET PO ×2 (08:46→12:34)
[2023-07-11] MEDS: POTASSIUM CHLORIDE 10 MEQ CAPSULE ER 20 MEQ PO ×2 (08:46→20:53)
[2023-07-11] MEDS: SODIUM CHLORIDE 0.9 % (FLUSH) 10 ML SYRINGE 5 ML IVF ×2 (09:58→20:49)
--- NOTE | 2023-07-11 11:46 | P.IMPN_ITS ---
Progress Note: A&P Assessment and plan (1) Alzheimer's dementia with behavioral disturbance: Problem details: Progressive In reviewing EMR, over the course of the last several months (05/02-06/30), patient has been tried on different medications, Zyprexa, Seroquel, behaviors continue to progress, fall risk. Moved into [facility] it appears the end of May where she is no longer able to safely reside Continue Seroquel as previously prescribed multimedia services coordinator for placement needs/discharge planning as unable to return to current setting Status: Acute (2) Weakness: Problem details: - multifactorial, acute on chronic, worsening - no apparent infectious process currently, UC negative, procalcitonin unremarkable. CT head 06/07 and 06/13 following falls without acute abnormalities. Previous TSH 1.830 - PT/OT Status: Acute (3) Hypokalemia: Problem details: - only current electrolyte abnormality - Likely due to daily furosemide use without potassium supplementation - continue oral replacement b.i.d.. Furosemide has been held Status: Acute (4) Urinary retention with incomplete bladder emptying: Problem details: - 875 ml post void residual - much more comfortable after she voided, even with the post-void residual of 875 ml - agreeable to attempt catheter placement, but we will hold off for now given that his goal of care is comfort focused and she is more comfortable post voiding - will stop furosemide for now - explained to that this could potentially be affecting her behaviors, but for now will monitor and consider placing urinary catheter in the future Status: Acute (5) Severe dementia: Problem details: - SLUMS 06 November 2019 Status: Acute (6) Hypotension: Problem details: - metoprolol and furosemide have been held. Continue to monitor Status: Acute Time Spent With Patient Total time spent: Total time spent caring for the patient today was 45 minutes. This includes time spent for the visit reviewing the chart, time spent during the visit, time spent after the visit and documentation and planning in coordination of care. Subjective Date Seen: 07/11/23 Interval history: Patient is sitting up in a chair by the window this morning. Poor historian secondary to significant dementia. All morning, can be heard yelling out. Currently talking about [place]. Cooperative with exam otherwise. No events reported overnight. Has remained afebrile, vitally stable. Exam Narrative: Exam Narrative: PHYSICAL EXAM General: Currently calm, appears in no acute distress HEENT: Normocephalic, atraumatic, sclera white Cardiovascular: RRR, S1S2. No pitting edema Pulmonary: CTA bilaterally without rhonchi, rales, expiratory wheezes. No dyspnea on room air Abdominal: Soft, nondistended, NTTP Neurological: Alert, significant dementia/cognitive impairment Extremities: No gross joint deformity or swelling. AROMI. Skin: Warm, dry. Const: Vital Signs, click to edit/add: Vital Signs - 24 hr 07/10/23 12:01 07/10/23 12:31 07/10/23 17:49 Temperature Pulse Rate [Pulse Oximeter] 75 Respiratory Rate 18 Blood Pressure 120/67 129/79 Blood Pressure [Le ft Arm] Pulse Oximetry 96 Oxygen Delivery Me thod Room Air 07/10/23 17:49 07/10/23 19:00 07/10/23 22:04 Temperature 97.3 F L 97.0 F L Pulse Rate [Pulse Oximeter] 91 82 Respiratory Rate 18 18 18 Blood Pressure Blood Pressure [Le ft Arm] 131/72 109/63 Pulse Oximetry 96 93 93 Oxygen Delivery Me thod Room Air Room Air Room Air 07/11/23 02:46 07/11/23 08:00 07/11/23 11:20 Temperature 96.8 F L 97.6 F 97.6 F Pulse Rate [Pulse Oximeter] 79 84 101 H Respiratory Rate 20 16 18 Blood Pressure Blood Pressure [Le ft Arm] 93/56 L 108/65 96/77 Pulse Oximetry 94 96 97 Oxygen Delivery Me thod Room Air Room Air Room Air Labs Labs: Laboratory Results - last 24 hr 07/10/23 07/10/23 07/10/23 11:40 12:50 14:25 WBC 4.97 RBC 4.47 Hgb 13.3 Hct 40.7 MCV 91 MCH 30 MCHC 33 RDW Coeff of Russ 13.1 Plt Count 226 Neut % (Auto) 64.6 Lymph % (Auto) 17.5 L [place] % (Auto) 8.2 Eos % (Auto) 8.9 H Baso % (Auto) 0.6 Neut # (Auto) 3.21 Lymph # (Auto) 0.90 [place] # (Auto) 0.40 Eos # (Auto) 0.40 Baso # (Auto) 0.03 Abs Immat Gran (auto) 0.01 Imm/Tot Granulo (auto) 0.2 Sodium 142 Potassium 3.0 L Chloride 106 Carbon Dioxide 28 Anion Gap 8 BUN 15 Creatinine 1.0 Estimated Creat Clear 34.02 Estimated GFR 55 Glucose 87 Lactate 1.0 Calcium 9.1 Total Bilirubin 2.1 H Direct Bilirubin 0.4 AST 32 ALT 14 Alkaline Phosphatase 96 Troponin I < 0.01 L C-Reactive Protein 1.3 H NT-Pro-B Natriuret Pep 194 Total Protein 6.8 Albumin 3.9 Procalcitonin 0.10 Urine Color Yellow Urine Appearance Slightly Cloudy A Urine pH 6.5 Ur Specific [place] 1.020 Urine Protein Negative Urine Glucose (UA) Negative Urine Ketones Negative Urine Blood Negative Urine Nitrite Negative Urine Bilirubin Negative Urine Urobilinogen 1.0 Ur Leukocyte Esterase Negative Urine RBC 0-2 Urine WBC 0-2 Ur Squamous Epith Cells Moderate A Urine Bacteria Many A SARS-CoV-2 (PCR) Negative SARS-CoV-2 Influenza Type A (PCR) Negative PCR FLU A Influenza Type B (PCR) Negative PCR FLU B RSV (PCR) Negative PCR RSV Lab Acknowledgement 07/10/23 07/11/23 18:13 07:41 WBC 4.47 L RBC 4.47 Hgb 13.3 Hct 41.1 MCV 92 MCH 30 MCHC 32 RDW Coeff of Russ 13.3 Plt Count 216 Neut % (Auto) 66.6 Lymph % (Auto) 15.2 L [place] % (Auto) 8.1 Eos % (Auto) 9.4 H Baso % (Auto) 0.7 Neut # (Auto) 3.00 Lymph # (Auto) 0.70 L [place] # (Auto) 0.40 Eos # (Auto) 0.40 Baso # (Auto) 0.00 Abs Immat Gran (auto) 0.00 Imm/Tot Granulo (auto) 0.0 Sodium 144 Potassium 3.5 L Chloride 110 Carbon Dioxide 30 Anion Gap 4 L BUN 14 Creatinine 1.1 Estimated Creat Clear 30.93 Estimated GFR 49 Glucose 98 Lactate Calcium 9.1 Total Bilirubin Direct Bilirubin AST ALT Alkaline Phosphatase Troponin I C-Reactive Protein NT-Pro-B Natriuret Pep Total Protein Albumin Procalcitonin Urine Color Urine Appearance Urine pH Ur Specific [place] Urine Protein Urine Glucose (UA) Urine Ketones Urine Blood Urine Nitrite Urine Bilirubin Urine Urobilinogen Ur Leukocyte Esterase Urine RBC Urine WBC Ur Squamous Epith Cells Urine Bacteria SARS-CoV-2 (PCR) Influenza Type A (PCR) Influenza Type B (PCR) RSV (PCR) Lab Acknowledgement Test Added
[2023-07-11] MEDS: ACETAMINOPHEN 325 MG TABLET 650 MG PO (13:38)
--- NOTE | 2023-07-11 17:03 | PC.NURSE ---
Shift Summary: Patient confused, has difficulty following cues. Up with one assist, walker and gait belt. Vitals stable. Is continent however has difficulty when on toilet due to her confusion, will forget/not know shes sitting on toilet and therefore not void. Bladder scan done this morning around 0930 and showed 243cc, 2 hours later patient was able to void 400cc on toilet. Needs assist with feeding. Restless/agitated throughout shift, heard yelling in room and praying loudly. Staff have been sitting with her or taking her for rides in her wheelchair in the halls. Poor appetite today.
[2023-07-11] MEDS: QUETIAPINE 25 MG TABLET 50 MG PO (20:48)
[2023-07-12 02:40] VITALS: BP 94/56; PULSE 81; RESP 22; TEMP 36.2; O2SAT 93
--- NOTE | 2023-07-12 07:33 | PC.NURSE ---
Patient alert to self. Pleasant and cooperative with cares. Slept well through the night. Woke at times during vitals and cares but quickly fell back asleep. Did very well with stand, pivot transfer to bedside commode. Patient had a small void in pull-up?at HS.She has not voided since that time.?Declined to use the toilet when offered to her during the night. Bladder scan at 0100 showed?108mL.?Denied pain.?
[2023-07-12 08:00] VITALS: BP 133/82; PULSE 82; RESP 16; TEMP 36.8; O2SAT 94
[2023-07-12] MEDS: OMEPRAZOLE 20 MG CAPSULE DR PO (08:13)
[2023-07-12] MEDS: QUETIAPINE 25 MG TABLET PO (08:14)
[2023-07-12] MEDS: POTASSIUM CHLORIDE 10 MEQ CAPSULE ER 20 MEQ PO (08:14)
--- NOTE | 2023-07-12 10:43 | PC.NURSE ---
shift note: pt up sba. vss stable. pt voiding and dressing with minimal assist. Report given to Selena at [facility].
--- NOTE | 2023-07-12 12:10 | PM.DS1 ---
DS: Providers Provider Date Seen: 07/12/23 Date of admission: 07/10/23 16:49 Primary care physician: Nga Jade DO Admitting Clinician: Tommy Davis MD Consults: 07/10/23 17:41 Consult to Physical Therapy [CONS] Routine Comment: Reason(s) for PT Consult:: Evaluate and Treat Any Restrictions?:: No Restrictions Consult to District Sales Coordinator [CONS] Routine Comment: Reason for Consult:: Discharge Planning Needs 07/10/23 17:43 Consult to Occupational Therapy [CONS] Routine Comment: Reason(s) for OT Consult:: Evaluate and Treat Any Restrictions?:: No Restrictions 07/10/23 18:42 Consult to Occupational Therapy [CONS] Routine Comment: Reason(s) for OT Consult:: Difficulty Managing ADLs Any Restrictions?:: No Restrictions Consult to Physical Therapy [CONS] Routine Comment: Reason(s) for PT Consult:: Evaluate and Treat Any Restrictions?:: No Restrictions Attending Physician on discharge: Yudi Vance [facility], [facility] [place] Date of Discharge: 07/12/23 DS: Diagnosis Discharge Diagnosis (1) Alzheimer's dementia with behavioral disturbance: Status: Acute Problem details: Progressive In reviewing EMR, over the course of the last several months (05/02-06/30), patient has been tried on different medications, Zyprexa, Seroquel, behaviors continue to progress, fall risk. Moved into [facility] it appears the end of May. Staff unable to take her back from the ED on Thursday, not clear if this was a staffing number issue. Staff called to the hospital on Thursday and updated with patient's progress, baseline behavior, ability to ambulate independently without 1 or 2 assist. Staff reported to be able to accommodate her back to the facility today. updated and able to transport her there. Close follow-up with PCP to reassess ongoing, evolving needs and facilities ability to continue to meet these. (2) Weakness: Status: Acute Problem details: Multifactorial, acute on chronic, worsening in setting of Alzheimer's dementia. No apparent infectious process currently, UC negative, procalcitonin unremarkable. CT head 06/07 and 06/13 following falls without acute abnormalities. Previous TSH 1.830. (3) Hypokalemia: Status: Acute Problem details: Improved with oral supplement. Outpatient follow-up with PCP to consider ongoing supplement while on Lasix. (4) Urinary retention with incomplete bladder emptying: Status: Acute Problem details: In ED, noted 875 ml post void residual, explained to that this could potentially be affecting her behaviors. Patient continued to void on her own during hospital course, not requiring catheters. Outpatient follow-up with PCP (5) Severe dementia: Status: Acute Problem details: - SLUMS 06 November 2019 (6) Hypotension: Status: Acute Problem details: - metoprolol and furosemide have been held during hospital course. DS: Summary Hospital Course Hospital Course: [age] year old female past medical history significant for severe Alzheimer's dementia with behavioral disturbance, hypertension was admitted to the medical floor for observation as unable to return to living facility. Course of care and details as noted above. Patient remained under observation, PT and OT were consulted, resumed normal activities without 1 or 2 person assist, able to return back to living facility per staff. Recommend outpatient follow-up with PCP to address medication management, living arrangement needs as disease continues to evolve. Remainder of chronic medical comorbidities were monitored and managed with home medications. Status at Discharge Functional status at discharge: independent ambulation Overall status at discharge: patient is back to baseline Time Spent with Patient Time attestation: Total time spent providing and/or coordinating discharge services: Time spent: Greater than 30 minutes Exam Narrative: Exam Narrative: PHYSICAL EXAM General: Pleasant, conversant, NAD Cardiovascular: RRR Pulmonary: No dyspnea Neurological: Alert, answering questions appropriately Skin: Warm, dry. Const: Vital Signs, click to edit/add: Vital Signs - 24 hr 07/11/23 15:00 07/11/23 16:00 07/11/23 19:00 Temperature 97.7 F 97 F L Pulse Rate [Pulse Oximeter] 93 93 82 Respiratory Rate 16 16 20 Blood Pressure [Le ft Arm] 110/71 115/75 Pulse Oximetry 97 92 Oxygen Delivery Me thod Room Air Room Air 07/11/23 23:00 07/12/23 02:40 07/12/23 08:00 Temperature 96.8 F L 97.2 F L 98.2 F Pulse Rate [Pulse Oximeter] 86 81 82 Respiratory Rate 16 22 16 Blood Pressure [Le ft Arm] 91/54 L 94/56 L 133/82 Pulse Oximetry 93 93 94 Oxygen Delivery Me thod Room Air Room Air Room Air Discharge Plan Discharge Disposition: Xfer SNF Date of Admission: 07/10/23 16:49 Attending Provider on Discharge: Yudi Vance Primary Care Provider: Nga Jade Condition: Stable Anticipated Discharge Date/Time: 07/12/23 10:29 Discharge Medications: Continued acetaminophen [Acetaminophen Extra Strength] 500 mg tablet 500 mg PO DAILY PRN aspirin 81 mg capsule 81 mg PO DAILY furosemide 20 mg tablet 20 mg PO DAILY metoprolol succinate 100 mg tablet extended release 24 hr 100 mg PO DAILY pravastatin 20 mg tablet 20 mg PO DAILY cyanocobalamin (vitamin B-12) 1,000 mcg/mL solution 1,000 mcg IM Q4W quetiapine 25 mg tablet 25 mg PO QPM quetiapine [Seroquel] 25 mg tablet 25 mg PO DAILY PRN (Reason: agitation) Qty: 7 2RF amoxicillin 500 mg capsule 1,000 mg PO BID 7 Days Qty: 28 0RF quetiapine [Seroquel] 25 mg tablet See Rx Instructions .ROUTE .COMPLEX Qty: 21 0RF Rx Instructions: 25mg (one tablet) PO QAM and 50mg (two tablets) PO QHS Discharge Orders: Discharge Order (Routine); Ordered 07/12/23 Ordered By: Yudi Vance Additional Instructions: Patient will return to [place]. Should consider oral potassium supplement if she is going to remain on oral Lasix. Close follow up with PCP for ongoing management, care needs. Activity Level: No Restrictions and Activity as Tolerated Discharge Diet: Regular Follow Up Appointments: Nga Jade DO [Primary Care Provider] - 07/17/23 10:00 am (Post Hospital Follow Up on Sunday 07/16 at 10am with [facility] at [facility]) [facility] Instructions Admit to: return to [facility] Can use facility standing orders?: Yes Code Status: DNR/DNI Oxygen: No Urinary Catheter: No Orders are good >30 days: No Signature: NACHO Little, PA-[facility] Hospitalist
== END 2023-07-12 11:39 ==
LOC: ED 16:19 → MEDSURG 16:50
PROVIDERS: Physician Assistant; Admitting Provider Internal Medicine; Emergency Provider Family Medicine; PCP Family Medicine; Visit Provider Internal Medicine
DX: R53.1 Weakness (principal); F02.C11 Dementia in other diseases classified elsewhere, severe, with agitation; G30.9 Alzheimer's disease, unspecified; E87.6 Hypokalemia; R33.8 Other retention of urine; I95.9 Hypotension, unspecified; Z91.81 History of falling; R53.83 Other fatigue; R35.0 Frequency of micturition; I10 Essential (primary) hypertension; K21.9 Gastro-esophageal reflux disease without esophagitis; E78.5 Hyperlipidemia, unspecified; Z79.82 Long term (current) use of aspirin; Z78.9 Other specified health status; Z90.710 Acquired absence of both cervix and uterus; Z98.890 Other specified postprocedural states; Z66 Do not resuscitate
CPT/HCPCS: 36415; 51798; 71045; 80048; 80053; 81001; 82248; 83605; 83880; 84145; 84484; 85025; 86140; 87081; 87086; 87631; 93005; 94761; 97116; 97162; 97165; 99284; 99285; A9270; G0378

== ENCOUNTER 2023-07-13 19:09 | Emergency (ER) | payer MEDICARE, SELFPAY ==
--- NOTE | 2023-07-13 19:17 | CT_ITS ---
Patient: DANIELA OLIVAREZ Facility:?[facility] Patient ID:?[id number] Site Patient ID:?[id number]. Site :?[id number] Study:?CT-Spine Cervical W/O-07/13/2023 7:56:28 PM Ordering Physician:SANDEEP Final Report: INDICATION: Fall, dementia. TECHNIQUE: CT of the cervical spine without contrast. COMPARISON: 06/14/2023. FINDINGS: Motion degraded exam. Vertebral alignment: Straightening of the cervical lordosis with similar 2 mm of anterolisthesis C2 on C3 and 3 mm anterolisthesis of C3 on C4. Vertebrae: Vertebral body heights are maintained. No definite fracture given limitations of patient motion and osseous demineralization. No suspicious osseous lesion. Multilevel degenerative disc disease and facet arthropathy, which is most pronounced at C4-C7. Extraspinal findings: Atherosclerotic calcifications at the carotid bifurcations. Posterior fossa is unremarkable. Right mastoid air cell effusion IMPRESSION: 1. Patient motion limits evaluation for fracture. No displaced fracture is visualized. 2. Multilevel cervical spondylosis. Please note that all CT scans at this facility use dose modulation, iterative reconstruction, and/or weight-based dosing when appropriate to reduce radiation dose to as low as reasonably achievable. Dictated by Adrianna Aggarwal MD @ 07/13/2023 8:33:59 PM Signed by:?Adrianna Aggarwal MD @07/13/2023 8:33:59 PM (Electronic Signature)
--- NOTE | 2023-07-13 19:17 | CT_ITS ---
Patient: DANIELA OLIVAREZ Facility:?[facility] Patient ID:?[id number] Site Patient ID:?[id number] Site :?[id number] Study:?CT-Head W/O-07/13/2023 7:56:03 PM Ordering Physician:SANDEEP Final Report: Indication: Fall, dementia. Technique: Noncontrast CT of head was performed. Comparison: 06/14/2023. Findings: Brain parenchyma: Normal garrison-white matter differentiation. Similar moderate prominence of the convexity sulci and periventricular white matter hypodensities in keeping with chronic microvascular change and age related volume loss. No acute intraparenchymal hemorrhage. No mass effect or midline shift. Extra-axial spaces: No extra-axial collection. Ventricular system: Unremarkable for age. Paranasal sinuses and mastoid air cells: Similar opacification of the right mastoid air cells. Small of fluid within the right sphenoid sinus. Orbits: Unremarkable. Bones: No calvarial fracture. Left parietal scalp contusion. Impression: 1. Left parietal scalp contusion. No acute intracranial abnormality identified. 2. Similar cerebral volume loss and findings suggestive of chronic small vessel ischemic change. 3. Unchanged opacification of the right mastoid air cells. Please note that all CT scans at this facility use dose modulation, iterative reconstruction, and/or weight-based dosing when appropriate to reduce radiation dose to as low as reasonably achievable. Dictated by Adrianna Aggarwal MD @ 07/13/2023 8:12:36 PM Signed by:?Adrainna Aggarwal MD @07/13/2023 8:12:36 PM (Electronic Signature)
[2023-07-13 19:19] VITALS: BP 117/76; PULSE 99; RESP 18; TEMP 36.9; O2SAT 96; BMI 27.5
--- NOTE | 2023-07-13 19:22 | ED.WOUNDLAC ---
HPI - Wound/Laceration General Time Seen by Provider: 19:23 Date Seen: 07/13/23 Chief Complaint: Laceration/Wound Stated Complaint: Fall Time Seen by Provider: 07/13/23 19:11 Source: patient, family, EMS and RN notes reviewed Mode of arrival: EMS Limitations: altered mental status (Has severe dementia.) History of Present Illness HPI narrative: This 83-year-old female who was just discharged from our hospital yesterday was found down on the ground by another memory care resident. Details of fall not known. She had blood at the back of her head. EMS was called, they did attempt to put a C-collar on. Patient has severe dementia. When she comes in the C-collar has worked its way up onto her chin. Staff has re-attempted to apply it but patient does not comply with this being on. I did recently see her on July 09, she ended up being placed in the hospital as she could not go back to the memory care unit she was in. Her discharge summary states that she was able to go back to her facility, presumably this is at the same level she was in. On July 09, they stated they could not accommodate her due to her increased level of care. I did not find any infectious or treatable condition on my workup on the ER on July 09. Patient is making nonsensical speech, is not answering questions appropriately. She is DNR, comfort care only per her advanced directive but her did have us do testing on Thursday. Last tetanus per JAD was 12/25/2013, will update. Place: home Related Data Home Medications Medication Instructions Recorded Confirmed acetaminophen 500 mg tablet 500 mg PO DAILY PRN 09/03/21 06/09/22 (Acetaminophen Extra Strength) aspirin 81 mg capsule 81 mg PO DAILY 09/03/21 07/10/23 furosemide 20 mg tablet 20 mg PO DAILY 09/03/21 07/10/23 metoprolol succinate 100 mg 100 mg PO DAILY 09/03/21 06/09/22 tablet,extended release 24 hr pravastatin 20 mg tablet 20 mg PO DAILY 09/03/21 07/10/23 cyanocobalamin (vitamin B-12) 1,000 mcg IM Q4W 06/09/22 07/10/23 1,000 mcg/mL injection solution quetiapine 25 mg tablet 25 mg PO QPM 06/08/23 07/10/23 Previous Rx's Medication Instructions Recorded amoxicillin 500 mg capsule 1,000 mg (2 x 500 mg) PO BID 7 06/08/23 days #28 caps quetiapine 25 mg tablet (Seroquel) 25 mg PO DAILY PRN agitation #7 06/08/23 tabs quetiapine 25 mg tablet (Seroquel) See Rx Instructions .Route 06/08/23 .COMPLEX #21 tabs Allergies Allergy/AdvReac Type Severity Reaction Status Date / Time No Known Drug Allergies Allergy Verified 09/04/21 09:56 [facility], [facility] Medical History (Updated 07/13/23 @ 20:44 by Vicki Barnes MD) Severe dementia ?F03.90 - Unspecified dementia without behavioral disturbance (ICD-10) POLST (Physician Orders for Life-Sustaining Treatment) ?Z78.9 - Other specified health status (ICD-10) Health care directive on file ?Z78.9 - Other specified health status (ICD-10) DNR (do not resuscitate) ?Z66 - Do not resuscitate (ICD-10) Osteoarthritis ?M19.90 - Unspecified osteoarthritis, unspecified site (ICD-10) Healthcare maintenance ?Z00.00 - Encounter for general adult medical examination without abnormal findings (ICD-10) Plantar fascial fibromatosis ?M72.2 - Plantar fascial fibromatosis (ICD-10) Esophageal reflux ?K21.9 - Gastro-esophageal reflux disease without esophagitis (ICD-10) Aortic stenosis, mild ?I35.0 - Nonrheumatic aortic (valve) stenosis (ICD-10) Hypertension ?I10 - Essential (primary) hypertension (ICD-10) Hyperlipidemia, unspecified ?E78.5 - Hyperlipidemia, unspecified (ICD-10) Malignant neoplasm of corpus uteri, unspecified ?C54.9 - Malignant neoplasm of corpus uteri, unspecified (ICD-10) Surgical History History of total abdominal hysterectomy (03/09/05) ?Z90.710 - Acquired absence of both cervix and uterus (ICD-10) History of esophagogastroduodenoscopy (11/30/12) ?Z98.890 - Other specified postprocedural states (ICD-10) S/P dilation and curettage (10/19/86) ?Z98.890 - Other specified postprocedural states (ICD-10) Family History Sister Renal cancer Pulmonary fibrosis Daughter Breast cancer Father Coronary artery disease Mother High blood pressure Social History Narrative: Lives with . He wants her to be DNR/DNI. He notes a discussion he had with Dr. Saravia back in 2019 as the reason for his decision on this. What is your current living situation?: unable to answer Problems where you live: unable to answer Problems where you live details: unable to answer In the past 12 months, utilities in danger of being shut off: unable to answer In past 12 months, lack of transportation kept you from medical appts, meetings, work, or getting things needed for daily living: unable to answer In the past 12 mos, have been you worried that your food would run out before you had money to buy more?: unable to answer In the past 12 mos, the food you bought just didn't last and you didn't have money to buy more?: unable to answer Highest level of school completed/degree received: high school graduate Smoking Status: Never smoker Do you use any of these nicotine containing products: None Second hand tobacco smoke exposure: No (SPOUSE QUIT) How often do you have a drink containing alcohol: never How often do you have six or more drinks on one occasion: Never AUDIT-C Alcohol total score: 0 Non-prescribed substance use: denies use How often does anyone, including family, friends and others, physically hurt you: unable to answer How often does anyone, including family, friends and others, insult or talk down to you: unable to answer How often does anyone, including family, friends and others, threaten you with harm: unable to answer How often does anyone, including family, friends and others, scream or curse at you: unable to answer service: No Exam Const: Vital Signs, click to edit/add: Vital Signs - 24 hr 07/13/23 19:19 Temperature 98.4 F Pulse Rate [Pulse Oximeter] 99 Respiratory Rate 18 Blood Pressure [Ri ght Upper Arm] 117/76 Pulse Oximetry 96 Oxygen Delivery Me thod Room Air This 83-year-old female is vocalizing, nonsensical at this time. She keeps her eyes close. Face is atraumatic. She has a lot of dried blood on the left side of her posterior head. See no evidence of active extravasation onto the pillow. EMS did have a cervical collar on, continues to move up on her chin. Did palpate her midline neck, she does not complain of pain as long as we are moving her. The cervical collar is seemingly more of a hindrance and really does not seem to be stopping her from moving at all. Lungs were clear, good air entry. CV regular rate and rhythm, do not appreciate any significant arrhythmia. Abdomen is soft. She is moving her arms, does move her legs, has compression stockings on her lower legs. Do not see open wounds elsewhere. Documenting provider has reviewed patient's vital signs: yes Course Course ED Course: Patient's will get head CT, cervical spine CT given her dementia, rule out traumatic fracture or change. Given her recent complete workup in hospitalization, presenting without fever today, do not feel that there is a significant change of baseline for this patient. It is well established that she is had progressive dementia with behavioral disturbance. She will continue to be at high risk for falls. Will monitor here, see if there is any other indication of acute traumatic change elsewhere in her body. Reevaluation(s) Time of Reevaluation #1: 20:19 Reevaluation #1: Patient was given Seroquel earlier to help with behavioral issues. I did go back in, nursing staff had to assist with rolling patient to her side. She has a lot of blood in matted hair on the posterior aspect of her head. The head CT showing a left parietal laceration. I did attempt to go through her hair, I cannot see any active or open laceration at this time. Nursing staff is going to continue to try to clean upper head, see if we can find the wound. Patient is very noncooperative and yelling out during this. Time of Reevaluation #2: 20:41 Reevaluation #2: Nursing staff did clean her scalp better, they cannot find an active area of bleeding. I can see a curvilinear area with purplish discoloration, slight raised but no open active wound. There is nothing showing any need for suturing. My guess is she had a small little tear of the skin in this area that is already actively laid back down. There has been no further bleeding. We will continue to monitor. Nursing staff has attempted to call her care facility twice, have not gotten a return phone call. Her is willing to stay with her as residence this evening. Reviewed with him that we really cannot transfer her back until we have talked to someone from the facility. It may be that she has to be observed overnight until we can talk to staff. Her tetanus was updated. Time of Reevaluation #3: 21:25 Reevaluation #3: Nursing staff did report to me that patient was able to ambulate with them to the bathroom. They states she meets criteria to discharge to her memory care unit that is assisted living. We still note no new bleeding from the area on her left occiput. Vital Signs Vital signs: Initial Vital Signs Temperature 98.4 F 07/13/23 19:19 Temperature Source Temporal Artery Scan 07/13/23 19:19 Pulse Rate 99 07/13/23 19:19 Pulse Rhythm Regular 07/13/23 19:19 Respiratory Rate 18 07/13/23 19:19 Blood Pressure 117/76 07/13/23 19:19 Blood Pressure Mean 89 07/13/23 19:19 Blood Pressure Position Sitting 07/13/23 19:19 Pulse Oximetry 96 07/13/23 19:19 Oxygen Delivery Method Room Air 07/13/23 19:19 Vital Signs Temperature 98.4 F 07/13/23 19:19 Pulse Rate 99 07/13/23 19:19 Respiratory Rate 18 07/13/23 19:19 Blood Pressure 117/76 07/13/23 19:19 Pulse Oximetry 96 07/13/23 19:19 Oxygen Delivery Method Room Air 07/13/23 19:19 Temperature 98.4 F 07/13/23 19:19 Pulse Rate 99 07/13/23 19:19 Respiratory Rate 18 07/13/23 19:19 Blood Pressure 117/76 07/13/23 19:19 Pulse Oximetry 96 07/13/23 19:19 Oxygen Delivery Method Room Air 07/13/23 19:19 Medications Administered Medications: Generic Name Dose Route Start Last Admin Trade Name Freq PRN Reason Stop Dose Admin Diphtheria/Tetanus/Acell Pertussis 0.5 ml 07/13/23 19:47 07/13/23 20:13 Tetanus/Diphth/Pertussis 0.5 Ml Syringe IM 07/13/23 19:48 0.5 ml .ONCE ONE Administration Quetiapine Fumarate 50 mg 07/13/23 19:23 07/13/23 20:06 Quetiapine 25 Mg Tablet PO 07/13/23 19:24 50 mg ONCE ONE Administration MDM - Wound/Laceration Imaging Data CT scan - head: Attestation: I have reviewed the pertinent imaging results. Radiologist's impression: Patient: [facility] Facility:?[facility] Patient ID:?[id number] Site Patient ID:?[id number] Site :?[id number] Study:?CT-Head W/O-07/13/2023 7:56:03 PM Ordering Physician:SANDEEP Final Report: Indication: Fall, dementia. Technique: Noncontrast CT of head was performed. Comparison: 06/14/2023. Findings: Brain parenchyma: Normal garrison-white matter differentiation. Similar moderate prominence of the convexity sulci and periventricular white matter hypodensities in keeping with chronic microvascular change and age related volume loss. No acute intraparenchymal hemorrhage. No mass effect or midline shift. Extra-axial spaces: No extra-axial collection. Ventricular system: Unremarkable for age. Paranasal sinuses and mastoid air cells: Similar opacification of the right mastoid air cells. Small of fluid within the right sphenoid sinus. Orbits: Unremarkable. Bones: No calvarial fracture. Left parietal scalp contusion. Impression: 1. Left parietal scalp contusion. No acute intracranial abnormality identified. 2. Similar cerebral volume loss and findings suggestive of chronic small vessel ischemic change. 3. Unchanged opacification of the right mastoid air cells. Please note that all CT scans at this facility use dose modulation, iterative reconstruction, and/or weight-based dosing when appropriate to reduce radiation dose to as low as reasonably achievable. Dictated by Adrianna Aggarwal MD @ 07/13/2023 8:12:36 PM (Electronic Signature) CT cervical spine: Attestation: I have reviewed the pertinent imaging results. Radiologist's impression: Patient: [facility] Facility:?[facility] Patient ID:?[id number] Site Patient ID:?[id number]. Site :?[id number] Study:?CT-Spine Cervical W/O-07/13/2023 7:56:28 PM Ordering Physician:SANDEEP Final Report: INDICATION: Fall, dementia. TECHNIQUE: CT of the cervical spine without contrast. COMPARISON: 06/14/2023. FINDINGS: Motion degraded exam. Vertebral alignment: Straightening of the cervical lordosis with similar 2 mm of anterolisthesis C2 on C3 and 3 mm anterolisthesis of C3 on C4. Vertebrae: Vertebral body heights are maintained. No definite fracture given limitations of patient motion and osseous demineralization. No suspicious osseous lesion. Multilevel degenerative disc disease and facet arthropathy, which is most pronounced at C4-C7. Extraspinal findings: Atherosclerotic calcifications at the carotid bifurcations. Posterior fossa is unremarkable. Right mastoid air cell effusion IMPRESSION: 1. Patient motion limits evaluation for fracture. No displaced fracture is visualized. 2. Multilevel cervical spondylosis. Please note that all CT scans at this facility use dose modulation, iterative reconstruction, and/or weight-based dosing when appropriate to reduce radiation dose to as low as reasonably achievable. Dictated by Adrianna Aggarwal MD @ 07/13/2023 8:33:59 PM (Electronic Signature) Discharge Plan Discharge Clinical Impression: Dementia in other diseases classified elsewhere, severe, with other behavioral disturbance Fall Qualifiers: Encounter type: initial encounter Qualified Code(s): W19.XXXA - Unspecified fall, initial encounter Contusion of scalp Qualifiers: Encounter type: initial encounter Qualified Code(s): S00.03XA - Contusion of scalp, initial encounter Condition: Stable Instructions: Contusion in Adults (ED) Additional Instructions: No suturable the area was found on the scalp. She has a small hematoma and bruising, likely had a small bleed from this area that had already stopped by the time we evaluated her. We did clean the area, observed her here and found no further bleeding. She had no acute changes on head CT or cervical spine CT from trauma. This patient certainly is at risk for recurrent falls. I do for see that she may need higher level of care and encouraged those conversations with the fdc so that she may transition when it is felt the time is appropriate. Prescriptions: No Action acetaminophen [Acetaminophen Extra Strength] 500 mg tablet 500 mg PO DAILY PRN aspirin 81 mg capsule 81 mg PO DAILY furosemide 20 mg tablet 20 mg PO DAILY metoprolol succinate 100 mg tablet extended release 24 hr 100 mg PO DAILY pravastatin 20 mg tablet 20 mg PO DAILY cyanocobalamin (vitamin B-12) 1,000 mcg/mL solution 1,000 mcg IM Q4W quetiapine 25 mg tablet 25 mg PO QPM quetiapine [Seroquel] 25 mg tablet 25 mg PO DAILY PRN (Reason: agitation) Qty: 7 2RF amoxicillin 500 mg capsule 1,000 mg PO BID 7 Days Qty: 28 0RF quetiapine [Seroquel] 25 mg tablet See Rx Instructions .ROUTE .COMPLEX Qty: 21 0RF Rx Instructions: 25mg (one tablet) PO QAM and 50mg (two tablets) PO QHS Follow Up/Referrals: Nga Jade DO [Primary Care Provider] - Stand Alone Forms: [facility] Info Instructions
--- OUTSIDE RECORDS SUMMARY | 2023-07-13 19:40 | XMS_ITS | Clinical Summary ---
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 [id number] [place] [id number] Michel Cates MD Refill Request (Lorazepam) 07/01/2023 1:00 PM CDT Office Visit [address] [address] Michel Cates MD Establish Care (detention) 06/30/[address] [address] Michel Cates MD Medication List Update (Visit on 07/01/23 at [facility]) 06/26/2023 Telephone [facility] [address] [place] [address] Nga Jade DO Medication Management (Clarification on QUEtiapine (SEROQUEL) 25 mg tablet) 06/24/2023 10:00 AM CDT Phone Office Visit [facility] [address] [place] [address] Nga Jade DO Medication Management 06/24/2023 Orders Only [facility] Scanner 1 scan: (1-Ord) INCOMING RECORDS-LABS, [facility], 06/24/2023 06/24/2023 Orders Only [facility] Scanner 1 scan: (1-Ord) INCOMING RECORDS-LABS, [facility], 06/24/2023 06/24/2023 Travel 06/15/2023 Telephone [facility] [address] [place] [address] Nga Jade DO Follow Up 06/14/2023 Orders Only [facility] Scanner 1 scan: (1-Ord) [facility], CT CERVICAL SPINE W/O CON, 06/14/2023 06/14/2023 Orders Only [facility] Scanner 1 scan: (1-Ord) [facility], CT HEAD/BRAIN, 06/14/2023 06/08/2023 Orders Only [facility] Scanner 1 scan: (1-Ord) [place] , HEAD/BRAIN WO CON, 06/08/2023 06/08/2023 Orders Only [facility] Scanner 1 scan: (1-Ord) [place], CHEST 2V, 06/08/2023 06/01/2023 Telephone [facility] [address] [place] [address] Nga Jade, DO Medication Management 05/29/2023 Telephone [facility] [address] [place] [address] Nga Jade, Follow Up 05/04/2023 Refill [facility] [address] [place] [address] Nga Jade DO Refill Request (Olanzapine) 04/14/2023 Patient Outreach [facility] Care Management - Care Management Navigation/[facility] [address] [place] [id number] Lulu Pleitez, [facility] Complex Care Management; Care Management Intake (Social work care management intake outreach./) from Last 3 Months Immunizations Name Administration [...] Name Status Comments Daughter Father (Age 62) [place] Mother Sister 1 Sister 2 Social History [...] 36.7 ??C (98 ??F) 2023 1:07 PM ELEVATOR TECHNICIAN Respiratory Rate 18 12/22/2022 8:02 AM CDT Oxygen Saturation 96% 04/07/2023 3:50 PM ELEVATOR TECHNICIAN Inhaled Oxygen Concentration - - Weight 64.9 kg (143 lb) 07/01/2023 7:46 AM CDT Height 158.8 cm (5' 2.52) 03/11/2023 3:10 PM CS T Body Mass Index 25.72 03/11/2023 3:10 PM ELEVATOR TECHNICIAN Plan of Treatment Upcoming Encounters Date Type Department Care Team (Late st Contact Info) Description 07/17/2023 10:00 AM CDT [place] [facility] [address] [place], [place] [phone] [place] [address] [place], [place] [phone] Health Maintenance Due Date Last Done Comments [...] REPORT 06/14/2023 12:00 AM CDT SCAN-CT INTERPRETATION 4 12:00 AM CDT SCAN-CT INTERPRETATION 4 12:00 AM CDT SCAN-RADIOLOGY REPORT 06/08/2023 12:00 [...] for results of this study. Procedure Note Keren Melody Gurwinder - 08/27/2007 Please see scanned document for results of this study. Carlita Zavala DEXA from Last 3 Months or Most Recently Relevant to Health Maintenance Advance Directives Documents on File Type Date Recorded Patient Transcription Manager Expl anation POLST 07/03/2023 POLST 12/17/2020 3:10 PM POLST/ [facility], 12/17/2020 Power of Retention Manager 01/09/2016 2:16 PM LIMIT ED POWER OF FULL TIME PARAMEDIC TO ACCESS MEDICAL RECORDS, [facility]ARTINE[facility], 11/20/15 Healthcare Directive 01/09/2016 2:14 PM CARLOS MARTINEZ, 11/20/2015 Healthcare Directive 09/18/2010 Durable Power of Retention Manager for Health Care Signed by patient 05/19/96 Care Teams Whip Operator Relationship Specialty [place] [address] [place] [address] PCP - General Family Practice 07/07/23 Jeff Thompson [address] [place] [id number] Scale Agent 09/12/11
--- NOTE | 2023-07-13 19:42 | ED.NURSE ---
TDap 12/25/2013
[2023-07-13] MEDS: QUETIAPINE 25 MG TABLET 50 MG PO (20:06)
[2023-07-13] MEDS: TETANUS/DIPHTH/PERTUSSIS 0.5 ML SYRINGE IM (20:13)
== END 2023-07-13 21:39 | disposition home or self-care (01) ==
PROVIDERS: Emergency Provider Family Medicine; PCP Family Medicine
DX: S00.93XA Contusion of unspecified part of head, initial encounter (principal); F03.90 Unspecified dementia, unspecified severity, without behavioral disturbance, psychotic disturbance, mood disturbance, and anxiety; W19.XXXA Unspecified fall, initial encounter
CPT/HCPCS: 70450; 72125; 90471; 90715; 94761; 99284; 99285; A9270